=== PATIENT | female | born 1970 | race Hispanic/Latino ===

== ENCOUNTER 2018-06-30 13:46 | Emergency (ER) | payer OTHER ==
[~2018-06-30] VITALS: Ht 149.9 cm; Wt 47.6 kg
[2018-06-30] MEDS ORDERED: PANTOPRAZOLE 40 MG 10ML VIAL IV STA (15:35)
[2018-06-30] MEDS ORDERED: SODIUM CHLORIDE 0.9% 1000ML 1,000 ML IV STA (15:35)
[2018-06-30] MEDS ORDERED: ONDANSETRON HCL INJ 2 MG/ML VIAL IV STA (15:35)
[2018-06-30 16:31] LABS: BASOPHILS % 0.5 % (0.0-1.0); EOSINOPHILS % 0.7 % (0.0-6.0); HEMATOCRIT 30.6 % (34.2-44.1); HEMOGLOBIN 9.5 g/dL (12.0-16.0); LYMPHOCYTES % 25.6 % (18.0-39.1); MEAN CORPUSCULAR HEMOGLOBIN 24.3 pg (28-32); MEAN CORPUSCULAR VOLUME 78.3 fL (81-99); MONOCYTES # (AUTO) 0.5 (0.2-0.8); MONOCYTES % 11.1 % (4.4-11.3); NEUTROPHILS # (AUTO) 2.5 (2.1-6.9); NEUTROPHILS % 61.9 % (38.7-80.0); PLATELET COUNT 271 x10e3/uL (140-360); RED BLOOD COUNT 3.91 x10e6/uL (3.6-5.1); RED CELL DISTRIBUTION WIDTH 14.8 % (11.7-14.4)
[2018-06-30 16:43] LABS: ALANINE AMINOTRANSFERASE 14 IU/L (0-55); ALBUMIN/GLOBULIN RATIO 1.3 (0.8-2.0); ALKALINE PHOSPHATASE 50 IU/L (40-150); AMYLASE 55 U/L (25-125); ANION GAP 17.8 mmol/L (8-16); BLOOD UREA NITROGEN 8 mg/dL (7-26); BUN/CREATININE RATIO 13 (6-25); CALCIUM 9.2 mg/dL (8.4-10.2); CARBON DIOXIDE 20 mmol/L (22-29); CHLORIDE 102 mmol/L (98-107); CREATININE, SERUM 0.64 mg/dL (0.57-1.11); EST GLOMERULAR FILTRATION RATE > 60 ML/MIN (60-); GLUCOSE 75 mg/dL (74-118); LIPASE 56 U/L (8-78); POTASSIUM 3.8 mmol/L (3.5-5.1); SODIUM 136 mmol/L (136-145)
--- NOTE | 2018-06-30 17:30 | Diagnostic Imaging Report ---
History: Comparison studies: None Technique: Axial images were obtained from the skull base to the thoracic inlet. Coronal and sagittal images reconstructed from the axial data. Intravenous contrast: None Findings: Evaluation of the neck is limited due to the absence of intravenous contrast. In spite of this limitation, Upper aerodigestive tract: Mildly prominent oropharyngeal tonsils. No gross intratonsillar abscess. No peritonsillar inflammatory changes or peritonsillar abscess. Punctate tonsillith in the right oropharyngeal tonsil as sequela previous infection/inflammation. Airways otherwise patent. No other gross abnormalities. Lymph nodes: No enlarged lymph nodes. Vessels: Cannot evaluate. Glands (thyroid, parotid and submandibular): Normal in size and symmetric. No masses. Paranasal sinuses: Small retention cyst in the right maxillary sinus and and mild nonspecific mucosal thickening the left maxillary sinuses. Remaining sinuses are clear. Included orbits: No abnormalities. Temporal bones: No gross abnormalities. Skull base and facial bones: Intact. Cervical spine: Mild cervical kyphosis. Mildly degenerated C4-C5 and C6-C7 disc. Moderately degenerated C5-C6 disc. No significant canal stenosis. Uncovertebral facet arthrosis result in multilevel foraminal stenosis (mild left at C2-C3, moderate left at C3-C4, moderate left and mild right foraminal stenosis at C5-C6 and mild bilaterally at C6-C7).. IMPRESSION: Exam is limited in the absence of IV contrast. In spite of this limitation: 1. Mildly prominent oropharyngeal tonsils, possibly reactive related to tonsillitis. Findings could be correlated with direct visualization. 2. Patent airway without discrete abscess or peritonsillar inflammatory changes. 3. Degenerative changes in the cervical spine as described. Signed by: Dr. Rajat Miranda M.D. on 06/30/2018 5:27 PM
[2018-07-02] MEDS ORDERED: CARAFATE1 GM/10 ML PO (11:20)
[2018-07-02] MEDS ORDERED: SUMATRIPTAN SUC25 MG PO (11:20)
[2018-07-02] MEDS ORDERED: LORAZEPAM1 MG PO (11:20)
[2018-07-02] MEDS ORDERED: LANSOPRAZOLE30 MG PO (11:21)
[2018-07-02] MEDS ORDERED: ZOFRAN ODT4 MG PO (11:21)
[2018-07-02] MEDS ORDERED: AMOXICILLIN250 MG PO (11:21)
== END 2018-06-30 19:21 | disposition home or self-care (01) ==
LOC: ER 13:46
DX: R13.14 Dysphagia, pharyngoesophageal phase (principal); J03.00 Acute streptococcal tonsillitis, unspecified
CPT/HCPCS: 36415; 70490; 80053; 82150; 83690; 85025; 99284; J2405; J7030

== ENCOUNTER 2018-07-02 21:52 | Emergency (ER) | payer OTHER ==
[~2018-07-02] VITALS: Ht 149.9 cm; Wt 47.6 kg
[~2018-07-02 21:52] MED LIST changes: -FENTANYL CITRATE/PF 100MCG/2 ML INJ ONE; -LIDOCAINE HCL 2% LOCAL INJ 5 ML SDV VIAL INJ ONE; -MIDAZOLAM HCL 2 MG/2 ML VIAL ONE; -PROPOFOL IV EMULSION 10 MG/ML 50 ML VIAL ONE
[2018-07-02] MEDS ORDERED: KETOROLAC TROMETHAMINE 30 MG/ML VIAL IV STA (22:18)
[2018-07-02 22:41] LABS: BASOPHILS % 0.4 % (0.0-1.0); EOSINOPHILS # (AUTO) 0.1 (0.0-0.4); EOSINOPHILS % 1.6 % (0.0-6.0); HEMATOCRIT 31.6 % (34.2-44.1); HEMOGLOBIN 9.8 g/dL (12.0-16.0); LYMPHOCYTES # (AUTO) 1.3 (1.0-3.2); LYMPHOCYTES % 22.5 % (18.0-39.1); MEAN CORPUSCULAR HEMOGLOBIN 24.4 pg (28-32); MEAN CORPUSCULAR VOLUME 78.6 fL (81-99); MONOCYTES # (AUTO) 0.6 (0.2-0.8); MONOCYTES % 10.1 % (4.4-11.3); NEUTROPHILS # (AUTO) 3.7 (2.1-6.9); PLATELET COUNT 262 x10e3/uL (140-360); RED BLOOD COUNT 4.02 x10e6/uL (3.6-5.1); RED CELL DISTRIBUTION WIDTH 14.7 % (11.7-14.4)
[2018-07-02 22:52] LABS: INR 1.16; PROTHROMBIN TIME 13.9 seconds (11.9-14.5)
[2018-07-02 22:53] LABS: PARTIAL THROMBOPLASTIN TIME 33.1 seconds (23.8-35.5)
[2018-07-02 23:02] LABS: ALANINE AMINOTRANSFERASE 15 IU/L (0-55); ALBUMIN 4.2 g/dL (3.5-5.0); ALBUMIN/GLOBULIN RATIO 1.3 (0.8-2.0); ALKALINE PHOSPHATASE 53 IU/L (40-150); ANION GAP 20.4 mmol/L (8-16); BLOOD UREA NITROGEN 7 mg/dL (7-26); BUN/CREATININE RATIO 11 (6-25); CALCIUM 9.5 mg/dL (8.4-10.2); CARBON DIOXIDE 18 mmol/L (22-29); CHLORIDE 104 mmol/L (98-107); CREATINE KINASE 84 IU/L (29-168); CREATININE, SERUM 0.66 mg/dL (0.57-1.11); EST GLOMERULAR FILTRATION RATE > 60 ML/MIN (60-); GLUCOSE 70 mg/dL (74-118); POTASSIUM 3.4 mmol/L (3.5-5.1); SODIUM 139 mmol/L (136-145)
--- NOTE | 2018-07-02 23:23 | Diagnostic Imaging Report ---
EXAMINATION: CHEST 2 VIEWS INDICATION: Chest pain. COMPARISON: None FINDINGS: TUBES and LINES: None. LUNGS: Lungs are well inflated. Lungs are clear. There is no evidence of pneumonia or pulmonary edema. PLEURA: No pleural effusion or pneumothorax. HEART AND MEDIASTINUM: The cardiomediastinal silhouette is unremarkable. BONES AND SOFT TISSUES: No acute osseous lesion. Soft tissues are unremarkable. UPPER ABDOMEN: No free air under the diaphragm. IMPRESSION: No acute thoracic abnormality. Signed by: Dr. Juan Maravilla M.D. on 07/02/2018 11:20 PM
[2018-07-03 01:57] LABS: CREATINE KINASE 79 IU/L (29-168)
== END 2018-07-03 02:40 | disposition home or self-care (01) ==
LOC: ER 21:52
DX: R07.89 Other chest pain (principal); R09.1 Pleurisy; D64.9 Anemia, unspecified
CPT/HCPCS: 36415; 71046; 80053; 82550; 82553; 84484; 85025; 85379; 85610; 85730; 93005; 99283; J1885

== ENCOUNTER → 2018-07-02 | Day surgery (SDC) | payer OTHER ==
[~2018-07-02] MED LIST: AMOXICILLIN250 MG PO; CARAFATE1 GM/10 ML PO; FENTANYL CITRATE/PF 100MCG/2 ML INJ ONE; LANSOPRAZOLE30 MG PO; LIDOCAINE HCL 2% LOCAL INJ 5 ML SDV VIAL INJ ONE; LORAZEPAM1 MG PO; MIDAZOLAM HCL 2 MG/2 ML VIAL ONE; PROPOFOL IV EMULSION 10 MG/ML 50 ML VIAL ONE; SUMATRIPTAN SUC25 MG PO; ZOFRAN ODT4 MG PO
--- NOTE | 2018-07-02 13:55 | Operative Report ---
DATE OF PROCEDURE: July 02, 2018 REFERRING PHYSICIAN: Dr. Saúl Miramontes and Dr. Sean Black. PROCEDURE PERFORMED: Esophagogastroduodenoscopy with esophageal dilatation. INDICATIONS FOR ESOPHAGOGASTRODUODENOSCOPY: Dysphagia. MEDICATION: Patient was done under MAC. Please see anesthesiologist's note. PROCEDURE: With the patient in left lateral decubitus position, flexible fiberoptic Olympus gastroscope was introduced into the esophagus under direct visualization without any difficulty. There was some patchy erythema noted in distal esophagus. There was a mild stricture noted at the GE junction that was dilated to size 52-Mongol[place] Brown. The scope was then advanced with ease into the stomach, mucosa overlying the antrum and the body revealed some patchy erythema and mild to moderate edema and biopsies were obtained and sent to stain for H. pylori. The pylorus was of normal contour and shape, was intubated with ease, and the scope was advanced all the way to the 2nd portion of the duodenum. The scope was withdrawn slowly. Mucosa overlying the proximal 2nd portion and the duodenal bulb appeared to be within normal limits. The scope was then withdrawn back into the stomach and retroflexed. Mucosa overlying the fundus and the cardia appeared to be within normal limits. The scope was then straightened out and was subsequently withdrawn. Patient tolerated procedure well. IMPRESSIONS 1. Distal esophagitis. 2. Esophageal stricture, dilated to a size 52-Mong[place]ian Brown. 3. Gastritis, biopsied. Biopsies sent to stain for Helicobacter pylori. PLAN: Follow up histology. Initiate Protonix 40 mg 1 p.o. q.a.m. and a.c. Job#: [id number] TA cc:SEAN BLACK MD cc:SAÚL MIRAMONTES MD
== END | disposition home or self-care (01) ==
LOC: OR 11:04
PROVIDERS: ATTEND Internal Medicine Gastroenterology
DX: K29.50 Unspecified chronic gastritis without bleeding (principal); K22.2 Esophageal obstruction; K20.9 Esophagitis, unspecified; K21.9 Gastro-esophageal reflux disease without esophagitis; I10 Essential (primary) hypertension; F41.9 Anxiety disorder, unspecified; F32.9 Major depressive disorder, single episode, unspecified; Z88.0 Allergy status to penicillin
CPT/HCPCS: 43239; 43450; 81025; 93005; J2001; J2250

== ENCOUNTER 2018-08-01 18:46 | Emergency (ER) | payer OTHER ==
[~2018-08-01] VITALS: Ht 149.9 cm; Wt 45.4 kg
[~2018-08-01 18:46] MED LIST changes: +BACTRIM DS TAB1 EACH PO; +FLOMAX0.4 MG PO; +INTEGRA PLUS C1 EACH; +INTEGRA PLUS C1 EACH PO; +PANTOPRAZOLE SO40 MG PO; +ULTRAM50 MG PO
== END 2018-08-01 19:58 | disposition home or self-care (01) ==
LOC: FSED 18:46
DX: R13.13 Dysphagia, pharyngeal phase (principal); F41.9 Anxiety disorder, unspecified; K21.9 Gastro-esophageal reflux disease without esophagitis
CPT/HCPCS: 99282

== ENCOUNTER 2018-08-02 17:06 | Emergency (ER) | payer OTHER ==
[~2018-08-02] VITALS: Ht 149.9 cm; Wt 45.4 kg
[2018-08-02 18:09] LABS: BASOPHILS % 0.4 % (0.0-1.0); EOSINOPHILS # (AUTO) 0.1 (0.0-0.4); EOSINOPHILS % 1.6 % (0.0-6.0); HEMATOCRIT 33.3 % (34.2-44.1); HEMOGLOBIN 10.2 g/dL (12.0-16.0); LYMPHOCYTES # (AUTO) 1.1 (1.0-3.2); MEAN CORPUSCULAR HEMOGLOBIN 25.1 pg (28-32); MEAN CORPUSCULAR HGB CONC 30.6 g/dL (31-35); MONOCYTES # (AUTO) 0.4 (0.2-0.8); NEUTROPHILS # (AUTO) 3.2 (2.1-6.9); NEUTROPHILS % 66.6 % (38.7-80.0); PLATELET COUNT 331 x10e3/uL (140-360); RED BLOOD COUNT 4.06 x10e6/uL (3.6-5.1); RED CELL DISTRIBUTION WIDTH 18.6 % (11.7-14.4)
[2018-08-02 18:14] LABS: CLARITY,URINE SL CLOUDY (CLEAR); COLOR,URINE YELLOW (YELLOW)
[2018-08-02 18:15] LABS: BILIRUBIN,URINE NEGATIVE (NEGATIVE); KETONES,URINE 2+ (NEGATIVE); LEUKOCYTE ESTERASE ,URINE TRACE (NEGATIVE); NITRITE,URINE NEGATIVE (NEGATIVE); PROTEIN,URINE DIPSTICK 1+ (NEGATIVE); URINE UROBILINOGEN 0.2 mg/dL (0.2 - 1)
[2018-08-02 18:25] LABS: BACTERIA,URINE MODERATE /HPF; EPITHELIAL CELLS,URINE MANY /LPF; RBC,URINE >50 /HPF (0-5)
--- NOTE | 2018-08-02 18:29 | Diagnostic Imaging Report ---
Exam: Head CT without contrast History: Weakness, dizziness Comparison studies: None Technique: Axial images were obtained from the skull base to the vertex. Coronal and sagittal images reconstructed from the axial data. Dose modulation, iterative reconstruction, and/or weight based adjustment of the mA/kV was utilized to reduce the radiation dose to as low as reasonably achievable. Radiation dose: Total DLP: 921 mGy*cm. Estimated effective dose: DLP x 0.015 Intravenous contrast: None Findings: Scalp: No abnormalities. Bones: No fractures, blastic or lytic lesions. Brain sulci: Appropriate for age. Ventricles: Normal in size and configuration. No hydrocephalus. Extra-axial spaces: No masses, no fluid collection. Parenchyma: No abnormal densities. No masses, hemorrhage, acute or chronic vascular insults. Sellar/suprasellar region: No abnormalities. Craniocervical junction: Patent foramen magnum. No Chiari one malformation. Incidental findings: Subtle vascular calcifications in the carotid siphons and at the dural insertions of the vertebral arteries. IMPRESSION: No acute abnormalities. Signed by: Dr. Rajat Miranda M.D. on 08/02/2018 6:25 PM
[2018-08-02 18:32] LABS: ALANINE AMINOTRANSFERASE 21 IU/L (0-55); ALBUMIN 4.3 g/dL (3.5-5.0); ALBUMIN/GLOBULIN RATIO 1.3 (0.8-2.0); ALKALINE PHOSPHATASE 57 IU/L (40-150); ANION GAP 16.4 mmol/L (8-16); BLOOD UREA NITROGEN 12 mg/dL (7-26); BUN/CREATININE RATIO 19 (6-25); CALCIUM 9.8 mg/dL (8.4-10.2); CARBON DIOXIDE 23 mmol/L (22-29); CHLORIDE 100 mmol/L (98-107); CREATINE KINASE 46 IU/L (29-168); CREATININE, SERUM 0.63 mg/dL (0.57-1.11); EST GLOMERULAR FILTRATION RATE > 60 ML/MIN (60-); GLUCOSE 81 mg/dL (74-118); POTASSIUM 3.4 mmol/L (3.5-5.1); SODIUM 136 mmol/L (136-145)
== END 2018-08-02 19:19 | disposition home or self-care (01) ==
LOC: ER 17:06
DX: R53.1 Weakness (principal); Z87.891 Personal history of nicotine dependence
CPT/HCPCS: 36415; 70450; 80053; 81001; 82550; 82553; 84484; 85025; 93005; 99284

== ENCOUNTER → 2018-08-13 | Day surgery (SDC) | payer OTHER ==
[~2018-08-13] MED LIST changes: +AMOXICILLIN500 MG PO; +CEFPROZIL250 MG PO; +DEXAMETHASONE SOD PHOS INJ 4 MG/ML VIAL ONE; +FENTANYL CITRATE/PF 100MCG/2 ML INJ ONE; +GENTAMICIN 120MG/NS 100ML 100 ML ONE; +IOPAMIDOL 610MG/1ML 300 MG/ML VIAL IV ONE; +LIDOCAINE HCL 2% LOCAL INJ 5 ML SDV VIAL INJ ONE; +MIDAZOLAM HCL 2 MG/2 ML VIAL ONE; +ONDANSETRON HCL INJ 2 MG/ML VIAL ONE; +PREDNISONE20 MG PO; +PROPOFOL IV EMULSION 10 MG/ML 20 ML VIAL ONE; +SEVOFLURANE INHAL SOLN 250 ML PEN BTL ONE
--- NOTE | 2018-08-13 07:55 | Operative Report ---
DATE OF PROCEDURE: August 13, 2018 PREOPERATIVE DIAGNOSES 1. Indwelling left ureteral stent. 2. Left ureteral calculus. 3. Left ureteral stricture. POSTOPERATIVE DIAGNOSES 1. Indwelling left ureteral stent. 2. Left ureteral calculus. 3. Left ureteral stricture. PROCEDURES 1. Cystourethroscopy and complicated removal of left indwelling stent (entirely separate procedure for left indwelling ureteral stent). 2. Left-sided ureteroscopy (entirely separate procedure for left ureteral stricture). 3. Supervision of fluoroscopy for ureteral stricture. 4. Supervision of fluoroscopy with stent removal. 5. Interpretation of retrograde ureteropyelography. ANESTHESIA: General. ESTIMATED BLOOD LOSS: Minimal. COMPLICATIONS: None. INDICATIONS: Mrs. Melvin is a very pleasant 47-year-old female with a history of ureteral stones, strictures, hydronephrosis, and stent placement. She and I had a long discussion about alternatives, risks, and benefits including doing nothing, cystoscopy with IVP, retrograde pyelogram, renal ultrasound, stent removal, ureteroscopy, percutaneous surgery. She voiced understanding of the options, alternatives, risks, and benefits and she elected to proceed. PROCEDURE IN DETAIL: After informed consent was obtained, the patient was taken to the operative suite and placed supine and underwent general anesthesia by the anesthesia service. She was then placed in the dorsal lithotomy position and sterilely prepped and draped in the standard fashion for cystoscopy. A 22.5-Wolof cystoscope was inserted per urethra, and normal appearing bladder. Panendoscopy revealed no tumors and no stones. Both ureteral orifices were within normal anatomic location and position with a left stent extruding. It was grasped and it was removed. Attempts were made to insert a guidewire. This failed. The guidewire was inserted along the stent. It was coiled in the renal pelvis. The ureteroscope was driven to the level of the renal pelvis. The previously seen stone had passed. The stricture was dilated, patent and easily passed through the ureteroscope. Retrograde pyelograms were performed through the ureteroscope revealing a dilated collecting system, but no evidence of other stones. At this time, the ureteroscope and the wire were removed. The bladder was drained. The patient was awakened from anesthesia and transported to the recovery room in excellent condition. SUPERVISION OF FLUOROSCOPY, INTERPRETATION OF RETROGRADE URETERAL PYELOGRAPHY: I was present throughout the entire procedure and I supervised the use of fluoroscopy as there was no radiologist present. Attention was turned toward the left where the ureter was catheterized with a ureteroscope. Retrograde pyelogram was performed revealing dilated collecting system and no evidence of stones. Job#: [id number] [facility]
[2018-08-13 08:25] VITALS: BP 134/88
== END | disposition home or self-care (01) ==
LOC: OR 05:10
PROVIDERS: ATTEND Urology
DX: N13.1 Hydronephrosis with ureteral stricture, not elsewhere classified (principal); N39.0 Urinary tract infection, site not specified; N20.1 Calculus of ureter; Z96.0 Presence of urogenital implants; F41.9 Anxiety disorder, unspecified; K21.9 Gastro-esophageal reflux disease without esophagitis; D64.9 Anemia, unspecified; Z88.0 Allergy status to penicillin
CPT/HCPCS: 52315; 74420; 81025; J1100; J1580; J2001; J2250; J2405; Q9967

== ENCOUNTER 2018-09-20 15:19 | Emergency (ER) | payer OTHER ==
[~2018-09-20] VITALS: Ht 149.9 cm; Wt 43.1 kg
[~2018-09-20 15:19] MED LIST changes: -DEXAMETHASONE SOD PHOS INJ 4 MG/ML VIAL ONE; -FENTANYL CITRATE/PF 100MCG/2 ML INJ ONE; -GENTAMICIN 120MG/NS 100ML 100 ML ONE; -IOPAMIDOL 610MG/1ML 300 MG/ML VIAL IV ONE; -LIDOCAINE HCL 2% LOCAL INJ 5 ML SDV VIAL INJ ONE; -MIDAZOLAM HCL 2 MG/2 ML VIAL ONE; -ONDANSETRON HCL INJ 2 MG/ML VIAL ONE; -PROPOFOL IV EMULSION 10 MG/ML 20 ML VIAL ONE; -SEVOFLURANE INHAL SOLN 250 ML PEN BTL ONE
[2018-09-20 16:03] VITALS: BP 120/70
== END 2018-09-20 16:23 | disposition home or self-care (01) ==
LOC: FSED 15:19
DX: K21.0 Gastro-esophageal reflux disease with esophagitis (principal); K29.70 Gastritis, unspecified, without bleeding; J02.9 Acute pharyngitis, unspecified; R10.13 Epigastric pain; E78.5 Hyperlipidemia, unspecified; F41.9 Anxiety disorder, unspecified; Z88.0 Allergy status to penicillin
CPT/HCPCS: 99282

== ENCOUNTER 2018-10-08 14:30 | Emergency (ER) | payer OTHER ==
[~2018-10-08] VITALS: Ht 149.9 cm; Wt 43.1 kg
--- OUTSIDE RECORDS SUMMARY | 2018-10-08 14:33 | XMS REPORT | Continuity of Care Document ---
Author Author [facility] Interface Address Unknown Phone Unavailable Problems Problem Status Onset Date Classification Date Reported Comments Source PYELONEPHRITIS, KIDNEY STONE, VOMITING Active 01/31/2012 [facility] HEADACHE Active 01/31/2012 [facility] Fever Active Problem 02/03/2012 [facility] Pain Active Problem 02/03/2012 [facility] PYELONEPHRITIS NOS Active [facility] Medications Medication Details Route Status Patient Instructions Ordering Provider Order Date Source ondansetron 4 mg, 2 mL, Route: IVP, Drug form: INJ, ONCE, PRN Nausea & Vomiting, Start date: 02/01/12 9:30:00 IVP No Longer Active [facility] 02/01/2012 [facility] fentanyl 25 microgram, 0.5 mL, Route: IVP, Drug form: INJ, Q5Min, PRN Pain Score 4-6, Start date: 02/01/12 9:30:00, Duration: 4 doses or times, Stop date: Limited # of times IVP No Longer Active [facility] 02/01/2012 [facility] acetaminophen-hydrocodone 325 mg-5 mg oral tablet 2 tab, Route: PO, Drug Form: TAB, Q4H, PRN Pain Score 4-6, Start date: 02/01/12 9:30:00, Duration: 30 day, Stop date: 03/02/12 9:29:00 PO No Longer Active [facility] 02/01/2012 [facility] naloxone 0.04 mg, 0.1 mL, Route: IVP, Drug form: INJ, Q2MIN, PRN Narcotic Reversal, Start date: 02/01/12 9:30:00, Duration: 8 doses or times, Stop date: Limited # of times IVP No Longer Active [facility] 02/01/2012 [facility] flumazenil 0.2 mg, 2 mL, Route: IVP, Drug form: INJ, PRN, PRN Benzodiazepine Reversal, Initial dose, Start date: 02/01/12 9:30:00, Duration: 30 day, Stop date: 03/02/12 9:29:00 IVP No Longer Active [facility] 02/01/2012 [facility] hydromorphone 0.5 mg, 0.5 mL, Route: IVP, Drug form: SOLN, Q5Min, PRN Pain Score 4-6, Start date: 02/01/12 9:30:00, Duration: 5 doses or times, Stop date: Limited # of times IVP No Longer Active [facility] 02/01/2012 [facility] meperidine 12.5 mg, 0.25 mL, Route: IVP, Drug form: INJ, Q30Min, PRN Other -See Comment, For shivering, Start date: 02/01/12 9:30:00, Duration: 2 doses or times, Stop date: Limited # of times IVP No Longer Active [facility] 02/01/2012 [facility] morphine Sulfate 2 mg, 1 mL, Route: IVP, Drug form: INJ, Q5Min, PRN Pain Score 4-6, Start date: 02/01/12 9:30:00, Duration: 8 doses or times, Stop date: Limited # of times IVP No Longer Active [facility] 02/01/2012 [facility] Lactated Ringers IV 1,000 mL 1,000 mL, Rate: 25 ml/hr, Infuse over: 40 hr, Route: IV, Dosing Weight 50.9 kg, Total Volume: 1,000, Start date: 02/01/12 7:45:00, Duration: 30 day, Stop date: 03/02/12 7:44:00 IV No Longer Active [facility] 02/01/2012 [facility] potassium chloride 40 mEq, Route: PO, ONCE, Start date: 01/31/12 22:28:00, Stop date: 01/31/12 22:28:00 PO No Longer Active [facility] 02/01/2012 [facility] Flomax 0.4 mg, 1 cap, Route: PO, Drug form: CAP, ONCE, Start date: 01/31/12 22:00:00, Stop date: 01/31/12 22:00:00 PO No Longer Active [facility] 02/01/2012 [facility] D5W 1/2NS + KCL 20mEq/L 1000ml (Premix) 1,000 mL 1,000 mL, Rate: 175 ml/hr, Infuse over: 5.7 hr, Route: IV, Dosing Weight 50.909 kg, Total Volume: 1,000, Start date: 01/31/12 21:28:00, Duration: 30 day, Stop date: 03/01/12 21:27:00 IV No Longer Active [facility] 02/01/2012 [facility] Rocephin 1 g/ NS (NaCl 0.9%) 50 mL IV solution 1 gm, Route: IVPB, [id number], Start date: 01/31/12 21:00:00, Duration: 30 day, Stop date: 02/29/12 21:00:00 IVPB No Longer Active [facility] 02/01/2012 [facility] morphine Sulfate 4 mg, 2 mL, Route: IVP, Drug form: INJ, Q3H, PRN Pain Score 7-10, Start date: 01/31/12 20:57:00, Duration: 30 day, Stop date: 03/01/12 20:56:00 IVP No Longer Active [facility] 02/01/2012 [facility] ondansetron 4 mg, 2 mL, Route: IVP, Drug form: INJ, Q6H, PRN Nausea & Vomiting, Start date: 01/31/12 20:57:00, Duration: 30 day, Stop date: 03/01/12 20:56:00 IVP No Longer Active [facility] 02/01/2012 [facility] Saline Flush 0.9% 5 ml, Route: IVP, Drug Form: INJ, PRN, PRN Line Flush, Start date: 01/31/12 20:57:00, Duration: 30 day, Stop date: 03/01/12 20:56:00 IVP No Longer Active [facility] 02/01/2012 [facility] Sodium Chloride 0.9% IV 1,000 mL 1,000 mL, Rate: 125 ml/hr, Infuse over: 8 hr, Route: IV, Dosing Weight 50.909 kg, Total Volume: 1,000, Start date: 01/31/12 20:57:00, Duration: 30 day, Stop date: 03/01/12 20:56:00 IV No Longer Active [facility] 02/01/2012 [facility] ferrous sulfate 325 mg oral enteric coated tablet 325 mg, 1 tab, PO, TID, Substitution Allowed PO Active 02/01/2012 [facility] Dilaudid 0.5 mg, Route: IV, ONCE, PRN Pain, Start date: 01/31/12 19:05:00, Stop date: 03/01/12 19:04:00 IV No Longer Active [facility] 02/01/2012 [facility] gentamicin 100 mg, 2.5 mL, Route: IVPB, Drug form: INJ, [id number], pharmacy to assist with dosing. First dose now, Start date: 01/31/12 19:00:00, Duration: 30 day, Stop date: 03/01/12 7:00:00 IVPB No Longer Active [facility] 02/01/2012 [facility] Rocephin 1 g/ NS (NaCl 0.9%) 50 mL IV solution 1 gm, Route: IVPB, Drug form: PDR/INJ, ONCE, Priority: STAT, Start date: 01/31/12 18:23:00, Stop date: 01/31/12 18:23:00 IVPB No Longer Active [facility] 01/31/2012 [facility] ondansetron 4 mg oral tablet, disintegrating 4 mg, 1 tab, Route: PO, Drug form: TABDIS, ONCE, Start date: 01/31/12 18:18:00, Stop date: 01/31/12 18:18:00 PO No Longer Active [facility] 01/31/2012 [facility] hydromorphone 0.5 mg, Route: IVP, ONCE, Priority: STAT, Start date: 01/31/12 18:17:00, Stop date: 01/31/12 18:17:00 IVP No Longer Active [facility] 01/31/2012 [facility] potassium chloride 20 mEq oral tablet, extended release 40 mEq, 2 tab, Route: PO, Drug form: ERTAB, ONCE, Priority: STAT, Start date: 01/31/12 17:23:00, Stop date: 01/31/12 17:23:00 PO No Longer Active [facility] 01/31/2012 [facility] morphine Sulfate 4 mg, 2 mL, Route: IVP, Drug form: INJ, ONCE, Start date: 01/31/12 15:16:00, Stop date: 01/31/12 15:16:00 IVP No Longer Active [facility] 01/31/2012 [facility] Zofran 4 mg, 2 mL, Route: IVP, Drug form: INJ, ONCE, Start date: 01/31/12 15:16:00, Stop date: 01/31/12 15:16:00 IVP No Longer Active [facility] 01/31/2012 [facility] Sodium Chloride 0.9% (Bolus) IV 1,000 mL 1,000 mL, Rate: 1,000 ml/hr, Infuse over: 1 hr, Route: IV, Dosing Weight 50.9 kg, Total Volume: 1,000, Priority: STAT, Start date: 01/31/12 15:16:00, Duration: 1 doses or times, Stop date: 01/31/12 16:15:00, Bolus DoseBolus Dose IV No Longer Active [facility] 01/31/2012 [facility] Allergies, Adverse Reactions, Alerts Substance Category Reaction Severity Reaction type Status Date Reported Comments Source penicillins drug allergy Allergy Active [facility] Immunizations Immunization Date Given Site Status Last Updated Comments Source Results Order Name Results Value Reference Range Date Interpretation Comments Source Microbiology Culture: Blood 02/01/2012 [facility] CHEMISTRY AGAP 16.3 meq/L 10.0 - 20.0 02/01/2012 Normal [facility] CHEMISTRY Calcium Lvl 7.2 mg/dL 8.5 - 10.5 02/01/2012 LOW [facility] CHEMISTRY CO2 22 meq/L 24 - 32 02/01/2012 LOW [facility] CHEMISTRY Glucose Lvl 114 mg/dL 02/01/2012 NA 2Interpretive Data: Reference Ranges : 0 - 7 days : 41 - 90 mg/dL7 days - 150 yrs : 70 - 99 mg/dL (fasting), based on the clinical recommendations of the [place] [employer]. [facility] CHEMISTRY Potassium Lvl 3.3 meq/L 3.5 - 5.1 02/01/2012 LOW [facility] CHEMISTRY Creatinine Lvl 0.8 mg/dL 0.5 - 1.4 02/01/2012 Normal [facility] CHEMISTRY Sodium Lvl 142 meq/L 135 - 145 02/01/2012 Normal [facility] CHEMISTRY Chloride Lvl 107 meq/L 95 - 109 02/01/2012 Normal [facility] CHEMISTRY BUN 12 mg/dL 7 - 22 02/01/2012 Normal [facility] HEMATOLOGY Anisocyte 1+ *ABN* (02/01/2012 00:37:00) None Seen 02/01/2012 ABN [facility] HEMATOLOGY Basophils 0.0 % 0.0 - 1.0 02/01/2012 Normal [facility] HEMATOLOGY Segs-Bands # 6.4 K/CMM 1.5 - 8.1 02/01/2012 Normal [facility] HEMATOLOGY Eosinophils # 0.0 K/CMM 0.0 - 0.5 02/01/2012 Normal [facility] HEMATOLOGY Lymphocytes # 0.5 K/CMM 1.0 - 5.5 02/01/2012 LOW [facility] HEMATOLOGY Basophils # 0.0 K/CMM 0.0 - 0.2 02/01/2012 Normal [facility] HEMATOLOGY Monocytes # 0.5 K/CMM 0.0 - 0.8 02/01/2012 Normal [facility] HEMATOLOGY Monocytes 6.7 % 2.0 - 12.0 02/01/2012 Normal [facility] HEMATOLOGY Segs 87.1 % 45.0 - 75.0 02/01/2012 [facility] HEMATOLOGY Lymphocytes 6.2 % 20.0 - 40.0 02/01/2012 LOW [facility] HEMATOLOGY Eosinophils 0.0 % 0.0 - 4.0 02/01/2012 Normal [facility] HEMATOLOGY Platelet 119 K/CMM 133 - 450 02/01/[address] [facility] HEMATOLOGY MPV 9.3 fL 7.4 - 10.4 02/01/2012 Normal [facility] HEMATOLOGY RDW 20.9 % 11.5 - 14.5 02/01/2012 [facility] HEMATOLOGY MCHC 33.0 g/dL 32.0 - 36.0 02/01/2012 Normal [facility] HEMATOLOGY MCH 27.6 pg 27.0 - 31.0 02/01/2012 Normal [facility] HEMATOLOGY MCV 83.6 fL 81.0 - 99.0 02/01/2012 Normal [facility] HEMATOLOGY Hct 27.8 % 36.0 - 48.0 02/01/[address] [facility] HEMATOLOGY RBC 3.33 M/CMM 4.20 - 5.40 02/01/[address] [facility] HEMATOLOGY WBC 7.4 K/CMM 3.7 - 10.4 02/01/2012 Normal [facility] HEMATOLOGY Hgb 9.2 g/dL 12.0 - 16.0 02/01/[address] [facility] Microbiology Culture: Blood 02/01/2012 [facility] URINALYSIS UA Bacteria Moderate /HPF (01/31/2012 15:28:00) None Seen 01/31/2012 Normal [facility] URINALYSIS UA RBC 3-5 /HPF *ABN* (01/31/2012 15:28:00) 0 - 2 01/31/2012 ABN [facility] URINALYSIS UA WBC 6-10 /HPF *ABN* (01/31/2012 15:28:00) None Seen 01/31/2012 ABN [facility] URINALYSIS UA Color Yellow *NA* (01/31/2012 15:28:00) Yellow 01/31/2012 NA [facility] URINALYSIS UA Glucose Negative (01/31/2012 15:28:00) Negative 01/31/2012 Normal [facility] URINALYSIS UA Protein 100 mg/dL *ABN* (01/31/2012 15:28:00) Negative 01/31/2012 ABN [facility] URINALYSIS UA Amorph Myranda Occasional /HPF *ABN* (01/31/2012 15:28:00) None Seen 01/31/2012 ABN [facility] URINALYSIS UA Leuk Est Negative (01/31/2012 15:28:00) Negative 01/31/2012 Normal [facility] URINALYSIS UA Sq Epi Moderate /LPF *ABN* (01/31/2012 15:28:00) Few 01/31/2012 ABN [facility] URINALYSIS Micro? Performed (01/31/2012 15:28:00) 01/31/2012 Normal [facility] URINALYSIS UA Blood Small *ABN* (01/31/2012 15:28:00) Negative 01/31/2012 ABN [facility] URINALYSIS UA Bili Negative (01/31/2012 15:28:00) Negative 01/31/2012 Normal [facility] URINALYSIS UA Ketones >=80 mg/dL *ABN* (01/31/2012 15:28:00) Negative 01/31/2012 ABN [facility] URINALYSIS UA Nitrite Negative (01/31/2012 15:28:00) Negative 01/31/2012 Normal [facility] URINALYSIS UA Urobilinogen 4.0 EU/dL 0.1 - 1.0 01/31/2012 [place] [facility] URINALYSIS UA pH 6.0 5.0 - 8.0 01/31/2012 Normal [facility] URINALYSIS UA Spec Grav 1.025 <=1.030 01/31/2012 Normal [facility] URINALYSIS UA Turbidity Slight Cloudy (01/31/2012 15:28:00) Clear 01/31/2012 Normal [facility] Microbiology Culture: Urine 01/31/2012 [facility] CHEMISTRY Calcium Lvl 8.3 mg/dL 8.5 - 10.5 01/31/2012 LOW [facility] CHEMISTRY AGAP 15.0 meq/L 10.0 - 20.0 01/31/2012 Normal [facility] CHEMISTRY Sodium Lvl 141 meq/L 135 - 145 01/31/2012 Normal [facility] CHEMISTRY CO2 24 meq/L 24 - 32 01/31/2012 Normal [facility] CHEMISTRY Potassium Lvl 3.0 meq/L 3.5 - 5.1 01/31/2012 CRIT 1Result Comment: Critical Result(s) called to charli at 01/31/2012 17:16 bytb. Read back OK. [facility] CHEMISTRY Chloride Lvl 105 meq/L 95 - 109 01/31/2012 Normal [facility] CHEMISTRY Creatinine Lvl 0.7 mg/dL 0.5 - 1.4 01/31/2012 Normal [facility] CHEMISTRY Glucose Lvl 104 mg/dL 01/31/2012 NA 3Interpretive Data: Reference Ranges : 0 - 7 days : 41 - 90 mg/dL7 days - 150 yrs : 70 - 99 mg/dL (fasting), based on the clinical recommendations of the [place] [employer]. [facility] CHEMISTRY BUN 13 mg/dL 7 - 22 01/31/2012 Normal [facility] HEMATOLOGY Hgb 10.5 g/dL 12.0 - 16.0 01/31/2012 LOW [facility] HEMATOLOGY Hct 31.9 % 36.0 - 48.0 01/31/2012 LOW [facility] HEMATOLOGY MCV 82.9 fL 81.0 - 99.0 01/31/2012 Normal [facility] HEMATOLOGY Platelet 141 K/CMM 133 - 450 01/31/2012 Normal [facility] HEMATOLOGY RDW 20.5 % 11.5 - 14.5 01/31/2012 [place] [facility] HEMATOLOGY MCHC 32.8 g/dL 32.0 - 36.0 01/31/2012 Normal [facility] HEMATOLOGY MCH 27.2 pg 27.0 - 31.0 01/31/2012 Normal [facility] HEMATOLOGY MPV 8.6 fL 7.4 - 10.4 01/31/2012 Normal [facility] HEMATOLOGY WBC 10.0 K/CMM 3.7 - 10.4 01/31/2012 Normal [facility] HEMATOLOGY RBC 3.85 M/CMM 4.20 - 5.40 01/31/2012 LOW [facility] HEMATOLOGY Basophils # 0.0 K/CMM 0.0 - 0.2 01/31/2012 Normal [facility] HEMATOLOGY Lymphocytes # 0.3 K/CMM 1.0 - 5.5 01/31/2012 LOW [facility] HEMATOLOGY Eosinophils # 0.0 K/CMM 0.0 - 0.5 01/31/2012 Normal [facility] HEMATOLOGY Monocytes # 0.5 K/CMM 0.0 - 0.8 01/31/2012 Normal [facility] HEMATOLOGY Anisocyte 1+ *ABN* (01/31/2012 15:25:00) None Seen 01/31/2012 ABN [facility] HEMATOLOGY Eosinophils 0.0 % 0.0 - 4.0 01/31/2012 Normal [facility] HEMATOLOGY Segs-Bands # 9.2 K/CMM 1.5 - 8.1 01/31/2012 HI [facility] HEMATOLOGY Monocytes 4.7 % 2.0 - 12.0 01/31/2012 Normal [facility] HEMATOLOGY Lymphocytes 2.6 % 20.0 - 40.0 01/31/2012 LOW [facility] HEMATOLOGY Segs 92.7 % 45.0 - 75.0 01/31/2012 HI [facility] HEMATOLOGY Basophils 0.0 % 0.0 - 1.0 01/31/2012 Normal [facility] CHEMISTRY S Preg Negative *NA* (01/31/2012 15:24:00) Negative 01/31/2012 NA [facility] Vital Signs Vital Sign Value Date Comments Source Temperature Oral (F) 98.1 F 02/01/2012 [facility] Heart Rate 66 02/01/2012 [facility] Respitory Rate 18 02/01/2012 [facility] Systolic (mm Hg) 116 02/01/2012 [facility] Diastolic (mm Hg) 79 02/01/2012 [facility] Diastolic (mm Hg) 79 02/01/2012 [facility] Systolic (mm Hg) 117 02/01/2012 [facility] Respitory Rate 18 02/01/2012 [facility] Temperature Oral (F) 97.6 F 02/01/2012 [facility] Heart Rate 70 02/01/2012 [facility] Diastolic (mm Hg) 77 02/01/2012 [facility] Systolic (mm Hg) 113 02/01/2012 [facility] Respitory Rate 18 02/01/2012 [facility] Heart Rate 80 02/01/2012 [facility] Temperature Oral (F) 97.6 F 02/01/2012 [facility] Weight 50.909 02/01/2012 [facility] Height 149.86 cm 02/01/2012 [facility] Weight 50.909 01/31/2012 [facility] Height 152.40 cm 01/31/2012 [facility] Encounters Location Location Details Encounter Type Encounter Number Reason For Visit Attending Provider ADM Date DC Date Status Source [facility] Inpatient [id number] [facility] 01/31/2012 02/01/2012 Active [facility] Procedures Procedure Code Date Perfomer Comments Source
[2018-10-08 15:29] LABS: BASOPHILS % 0.4 % (0.0-1.0); EOSINOPHILS # (AUTO) 0.1 (0.0-0.4); EOSINOPHILS % 2.2 % (0.0-6.0); HEMATOCRIT 36.6 % (34.2-44.1); HEMOGLOBIN 11.9 g/dL (12.0-16.0); LYMPHOCYTES # (AUTO) 1.3 (1.0-3.2); LYMPHOCYTES % 25.4 % (18.0-39.1); MEAN CORPUSCULAR HEMOGLOBIN 29.3 pg (28-32); MEAN CORPUSCULAR HGB CONC 32.5 g/dL (31-35); MEAN CORPUSCULAR VOLUME 90.1 fL (81-99); MONOCYTES # (AUTO) 0.5 (0.2-0.8); MONOCYTES % 9.1 % (4.4-11.3); NEUTROPHILS # (AUTO) 3.1 (2.1-6.9); NEUTROPHILS % 62.5 % (38.7-80.0); PLATELET COUNT 234 x10e3/uL (140-360); RED BLOOD COUNT 4.06 x10e6/uL (3.6-5.1); RED CELL DISTRIBUTION WIDTH 17.9 % (11.7-14.4)
[2018-10-08] MEDS ORDERED: ASPIRIN 81 MG CHEW TAB PO ONE (15:30)
[2018-10-08 15:32] LABS: INR 0.93; PROTHROMBIN TIME 13.3 seconds (11.9-14.5)
[2018-10-08 15:33] LABS: PARTIAL THROMBOPLASTIN TIME 33.1 seconds (23.8-35.5)
[2018-10-08 15:43] LABS: ALANINE AMINOTRANSFERASE 12 IU/L (0-55); ALBUMIN 4.2 g/dL (3.5-5.0); ALBUMIN/GLOBULIN RATIO 1.2 (0.8-2.0); ALKALINE PHOSPHATASE 44 IU/L (40-150); ANION GAP 14.2 mmol/L (8-16); BLOOD UREA NITROGEN 16 mg/dL (7-26); BUN/CREATININE RATIO 23 (6-25); CALCIUM 9.2 mg/dL (8.4-10.2); CARBON DIOXIDE 24 mmol/L (22-29); CHLORIDE 108 mmol/L (98-107); CREATINE KINASE 100 IU/L (29-168); CREATININE, SERUM 0.69 mg/dL (0.57-1.11); EST GLOMERULAR FILTRATION RATE > 60 ML/MIN (60-); GLUCOSE 87 mg/dL (74-118); POTASSIUM 3.2 mmol/L (3.5-5.1); SODIUM 143 mmol/L (136-145)
[2018-10-08] MEDS ORDERED: SIMETHICONE 40 MG/0.6 ML BTL PO ONE (15:45)
--- NOTE | 2018-10-08 16:06 | Diagnostic Imaging Report ---
EXAMINATION: CHEST SINGLE (PORTABLE) INDICATION: Chest pain COMPARISON: None FINDINGS: TUBES and LINES: None. LUNGS: Lungs are well inflated. Lungs are clear. There is no evidence of pneumonia or pulmonary edema. PLEURA: No pleural effusion or pneumothorax. HEART AND MEDIASTINUM: The cardiomediastinal silhouette is unremarkable. BONES AND SOFT TISSUES: No acute osseous lesion. Soft tissues are unremarkable. UPPER ABDOMEN: No free air under the diaphragm. IMPRESSION: No acute radiographic abnormality. Signed by: Dr. Jignesh Doyle MD on 10/08/2018 4:03 PM
[2018-10-08] MEDS ORDERED: HYDROCODONE/APAP 10MG-325MG TAB PO ONE (18:15)
[2018-10-08] MEDS ORDERED: CYCLOBENZAPRINE HCL 10 MG TAB PO ONE (18:15)
[2018-10-08 18:23] LABS: BILIRUBIN,URINE NEGATIVE (NEGATIVE); CLARITY,URINE CLEAR (CLEAR); COLOR,URINE YELLOW (YELLOW); KETONES,URINE NEGATIVE (NEGATIVE); LEUKOCYTE ESTERASE ,URINE NEGATIVE (NEGATIVE); NITRITE,URINE NEGATIVE (NEGATIVE); PROTEIN,URINE DIPSTICK NEGATIVE (NEGATIVE); URINE UROBILINOGEN 0.2 mg/dL (0.2 - 1)
[2018-10-08 18:36] LABS: AMORPHOUS SEDIMENT,URINE MODERATE (FEW); BACTERIA,URINE MANY /HPF; EPITHELIAL CELLS,URINE MANY /LPF
== END 2018-10-08 19:05 | disposition home or self-care (01) ==
LOC: ER 14:30
DX: R07.89 Other chest pain (principal); K21.9 Gastro-esophageal reflux disease without esophagitis; E78.5 Hyperlipidemia, unspecified; F41.9 Anxiety disorder, unspecified
CPT/HCPCS: 36415; 71045; 80053; 81001; 82550; 82553; 83880; 84484; 85025; 85610; 85730; 93005; 99284

== ENCOUNTER → 2019-01-02 | Emergency (ER) | payer OTHER ==
[~2019-01-02] VITALS: Ht 149.9 cm; Wt 43.1 kg
--- OUTSIDE RECORDS SUMMARY | 2019-01-02 14:44 | XMS REPORT | Summary of Care ---
Author Author [facility] Organization [facility] Address Unknown Phone Unavailable Encounter [facility] Melvin(YAYO) [id number] Date(s): 05/24/18 - 05/24/18 [facility] [address] [place] [address]- Encounter Diagnosis Chest pain (Discharge Diagnosis) - 05/24/18 Discharge Disposition: Home or Self Care Attending Physician: Stevan Victor MD Vital Signs Most recent to 1 2 oldest [Reference Range]: Height 149.86 cm (05/24/18 10:18 AM) Temperature Oral 97.4 DegF [96.4-99.1 DegF] (05/24/18 10:18 AM) Blood Pressure 126/83 mmHg 137/86 mmHg [90-140/60-90 mmHg] (05/24/18 1:31 PM) (05/24/18 10:18 AM) Respiratory Rate 16 BRMIN 20 BRMIN [14-20 BRMIN] (05/24/18 1:31 PM) (05/24/18 10:18 AM) Peripheral Pulse 65 bpm 73 bpm Rate [60-100 bpm] (05/24/18 1:31 PM) (05/24/18 10:18 AM) Weight 51.42 kg (05/24/18 10:18 AM) Body Mass Index 22.9 m2 (05/24/18 10:18 AM) Problem List Condition Effective Dates Status Health Status Informant Active section(Confirmed) Fever(Confirmed) Active Pain(Confirmed) Active Allergies, Adverse Reactions, Alerts Substance Reaction Severity Status penicillins Active penicillin Active NKDA Active Medications aspirin 324 mg, 4 tab, Route: PO, Drug form: CHEWTAB, ONCE, Dosing Weight 51.42, kg, Jennifer ority: STAT, Start date: 05/24/18 11:27:00 CDT, Stop date: 05/24/18 11:27:00 CDT Notes: Take with food. Start Date: 05/24/18 Stop Date: 05/24/18 Status: Completed Saline Flush 0.9% 10 mL, Route: IVP, Drug Form: INJ, Dosing Weight 51.42, kg, PRN, PRN Line Flush, Start date: 05/24/18 11:27:00 CDT, Duration: 30 day, Stop date: 06/23/18 11:26: 00 CDT Notes: (Same as: BD Posiflush) Start Date: 05/24/18 Stop Date: 05/24/18 Status: Discontinued Sodium Chloride 0.9% (Bolus) IV 1,000 mL, 1000 ml/hr, Infuse Over: 1 hr, Route: IV, 1,000, Drug form: INJ, ONCE, Priority: STAT, Dosing Weight 51.42 kg, Start date: 05/24/18 11:27:00 CDT, Stop date: 05/24/18 11:27:00 CDT Start Date: 05/24/18 Stop Date: 05/24/18 Status: Completed Results ELECTROLYTES Most recent to 1 oldest [Reference Range]: Sodium Lvl [135-145 139 mEq/L mEq/L] (05/24/18 11:51 AM) Potassium Lvl 3.5 mEq/L [3.5-5.1 mEq/L] (05/24/18 11:51 AM) Chloride Lvl [95-109 104 mEq/L mEq/L] (05/24/18 11:51 AM) CO2 [24-32 mEq/L] 27 mEq/L (05/24/18 11:51 AM) AGAP [10.0-20.0 11.5 mEq/L mEq/L] (05/24/18 11:51 AM) CHEM PANEL Most recent to 1 oldest [Reference Range]: Creatinine Lvl 0.70 mg/dL [0.50-1.40 mg/dL] (05/24/18 11:51 AM) eGFR 105 mL/min/1.73m2 1 *NA* (05/24/18 11:51 AM) BUN [7-22 mg/dL] 8 mg/dL (05/24/18 11:51 AM) B/C Ratio [6-25] 11 (05/24/18 11:51 AM) Glucose Lvl [70-99 86 mg/dL mg/dL] (05/24/18 11:51 AM) Total Protein 7.6 g/dL [6.4-8.4 g/dL] (05/24/18 11:51 AM) Albumin Lvl [3.5-5.0 4.1 g/dL g/dL] (05/24/18 11:51 AM) Globulin [2.7-4.2 3.5 g/dL g/dL] (05/24/18 11:51 AM) A/G Ratio [0.7-1.6] 1.2 (05/24/18 11:51 AM) Calcium Lvl 9.1 mg/dL [8.5-10.5 mg/dL] (05/24/18 11:51 AM) ALT [0-65 unit/L] 24 unit/L (05/24/18 11:51 AM) AST [0-37 unit/L] 23 unit/L (05/24/18 11:51 AM) Alk Phos [39-136 62 unit/L unit/L] (05/24/18 11:51 AM) Bili Total [0.2-1.3 0.5 mg/dL mg/dL] (05/24/18 11:51 AM) 1Result Comment: The eGFR is calculated using the CKD-EPI formula. In most young, healthy individuals the eGFR will be >90 mL/min/1.73m2. The eGFR declines with age. An eGFR of 60-89 may be normal in some populations, particularly the elderly, for whom the CKD-EPI formula has not been extensively validated. Use of the eGFR is not recommended in the following populations: Individuals with unstable creatinine concentrations, including patients and those with serious co-morbid conditions. Patients with extremes in muscle mass or diet. The data above are obtained from the National Kidney Disease Education Program ( NKDEP) which additionally recommends that when the eGFR is used in patients with extremes of body mass index for purposes of drug dosing, the eGFR should be mul tiplied by the estimated BMI. CARDIAC ENZYMES Most recent to 1 oldest [Reference Range]: Total CK [12-191 119 unit/L unit/L] (05/24/18 11:51 AM) CK MB [0.5-3.6 <1.0 ng/mL ng/mL] (05/24/18 11:51 AM) CK MB Index <0.8 [0.0-2.5] (05/24/18 11:51 AM) Troponin-I <0.02 ng/mL [0.00-0.40 ng/mL] (05/24/18 11:51 AM) BNP [<=100 pg/mL] 7 pg/mL (05/24/18 11:51 AM) URINE AND STOOL Most recent to 1 oldest [Reference Range]: UA Turbidity [Clear] Slight *ABN* (05/24/18 11:53 AM) UA Color Ltyellow *NA* (05/24/18 11:53 AM) UA pH [5.0-8.0] 7.0 (05/24/18 11:53 AM) UA Spec Grav 1.011 [<=1.030] (05/24/18 11:53 AM) UA Glucose [Negative Negative mg/dL mg/dL] *NA* (05/24/18 11:53 AM) UA Blood [Negative] Moderate *ABN* (05/24/18 11:53 AM) UA Ketones [Negative Negative mg/dL mg/dL] *NA* (05/24/18 11:53 AM) UA Protein [Negative Negative mg/dL mg/dL] (05/24/18 11:53 AM) UA Urobilinogen <=1.0 mg/dL [0.1-1.0 mg/dL] *NA* (05/24/18 11:53 AM) UA Bili [Negative] Negative *NA* (05/24/18 11:53 AM) UA Leuk Est Negative [Negative] (05/24/18 11:53 AM) UA Nitrite Negative [Negative] (05/24/18 11:53 AM) UA WBC [0-5 /HPF] 1 /HPF (05/24/18 11:53 AM) UA RBC [0-2 /HPF] 3 /HPF *HI* (05/24/18 11:53 AM) UA Bacteria [None Occasional /HPF Seen /HPF] *NA* (05/24/18 11:53 AM) UA Sq Epi [Few /LPF] Many /LPF *ABN* (05/24/18 11:53 AM) UA Mucus [None Seen Few /LPF /LPF] *NA* (05/24/18 11:53 AM) HEMATOLOGY Most recent to 1 oldest [Reference Range]: WBC [3.7-10.4 K/CMM] 5.0 K/CMM (05/24/18 11:51 AM) RBC [4.20-5.40 4.36 M/CMM M/CMM] (05/24/18 11:51 AM) Hgb [12.0-16.0 g/dL] 11.1 g/dL *LOW* (05/24/18 11:51 AM) Hct [36.0-48.0 %] 34.0 % *LOW* (05/24/18 11:51 AM) MCV [80.0-98.0 fL] 78.1 fL *LOW* (05/24/18 11:51 AM) MCH [27.0-31.0 pg] 25.4 pg *LOW* (05/24/18 11:51 AM) MCHC [32.0-36.0 32.5 g/dL g/dL] (05/24/18 11:51 AM) RDW [11.5-14.5 %] 15.1 % *HI* (05/24/18 11:51 AM) MPV [7.4-10.4 fL] 9.0 fL (05/24/18 11:51 AM) Platelet [133-450 282 K/CMM K/CMM] (05/24/18 11:51 AM) Segs [45.0-75.0 %] 64.1 % (05/24/18 11:51 AM) Lymphocytes 24.4 % [20.0-40.0 %] (05/24/18 11:51 AM) Monocytes [2.0-12.0 10.2 % %] (05/24/18 11:51 AM) Eosinophils [0.0-4.0 0.7 % %] (05/24/18 11:51 AM) Basophils [0.0-1.0 0.6 % %] (05/24/18 11:51 AM) Segs-Bands # 3.2 K/CMM [1.5-8.1 K/CMM] (05/24/18 11:51 AM) Lymphocytes # 1.2 K/CMM [1.0-5.5 K/CMM] (05/24/18 11:51 AM) Monocytes # [0.0-0.8 0.5 K/CMM K/CMM] (05/24/18 11:51 AM) [employer] [None 1+ Seen] *ABN* (05/24/18 11:51 AM) Immunizations No data available for this section Procedures No data available for this section Social History Social History Type Response Smoking Status Never smoker; Exposure to Tobacco Smoke None; Cigarette Smoking Last 365 Days No; Reg Smoking Cessation Counseling No entered on: 05/24/18 Assessment and Plan No data available for this section
--- OUTSIDE RECORDS SUMMARY | 2019-01-02 14:44 | XMS REPORT | Summary of Care ---
Author Author [facility] Organization [facility] Address Unknown Phone Unavailable Encounter HQ Melvin(FIN) [id number] Date(s): 05/18/18 - 05/18/18 [facility] [address] [place] [address]- [phone] Encounter Diagnosis Acute chest pain (Discharge Diagnosis) - 05/18/18 Acute anxiety (Discharge Diagnosis) - 05/18/18 Discharge Disposition: Home or Self Care Attending Physician: Irene Resendiz DO Vital Signs 1 2 3 Most recent to oldest [Reference Range]: 149.86 cm (05/18/18 12:45 AM) Height 98.3 DegF (05/18/18 3:13 AM) 98.2 DegF (05/18/18 1:34 AM) 98.3 DegF (05/18/18 12:45 AM) Temperature Oral [96.4-99.1 DegF] 116/75 mmHg (05/18/18 3:13 AM) 160/93 mmHg *HI* (05/18/18 1:34 AM) 137/87 mmHg (05/18/18 12:45 AM) Blood Pressure [90-140/60-90 mmHg] 18 BRMIN (05/18/18 3:13 AM) 19 BRMIN (05/18/18 1:44 AM) 18 BRMIN (05/18/18 1:34 AM) Respiratory Rate [14-20 BRMIN] 87 bpm (05/18/18 1:34 AM) 97 bpm (05/18/18 12:45 AM) Peripheral Pulse Rate [60-100 bpm] 72.727 kg (05/18/18 12:45 AM) Weight 32.38 m2 (05/18/18 12:45 AM) Body Mass Index Problem List Condition Effective Dates Status Health Status Informant Active section(Confirmed) Fever(Confirmed) Active Pain(Confirmed) Active Allergies, Adverse Reactions, Alerts Substance Reaction Severity Status penicillins Active NKDA Active Medications Ativan 1 mg, 0.5 mL, Route: IVP, Drug form: INJ, ONCE, Dosing Weight 72.727, kg, Priori ty: STAT, Start date: 05/18/18 1:55:00 CDT, Stop date: 05/18/18 1:55:00 CDT Notes: (Same as: Ativan) Start Date: 05/18/18 Stop Date: 05/18/18 Status: Completed Results ELECTROLYTES Most recent to 1 oldest [Reference Range]: Sodium Lvl [135-145 143 mEq/L mEq/L] (05/18/18 2:25 AM) Potassium Lvl 3.6 mEq/L [3.5-5.1 mEq/L] (05/18/18 2:25 AM) Chloride Lvl [95-109 110 mEq/L mEq/L] *HI* (05/18/18 2:25 AM) CO2 [24-32 mEq/L] 23 mEq/L *LOW* (05/18/18 2:25 AM) AGAP [10.0-20.0 13.6 mEq/L mEq/L] (05/18/18 2:25 AM) CHEM PANEL Most recent to 1 oldest [Reference Range]: Creatinine Lvl 0.67 mg/dL [0.50-1.40 mg/dL] (05/18/18 2:25 AM) eGFR 107 mL/min/1.73m2 1 *NA* (05/18/18 2:25 AM) BUN [7-22 mg/dL] 15 mg/dL (05/18/18 2:25 AM) B/C Ratio [6-25] 22 (05/18/18 2:25 AM) Glucose Lvl [70-99 110 mg/dL mg/dL] *HI* (05/18/18 2:25 AM) Total Protein 7.4 g/dL [6.4-8.4 g/dL] (05/18/18 2:25 AM) Albumin Lvl [3.5-5.0 3.8 g/dL g/dL] (05/18/18 2:25 AM) Globulin [2.7-4.2 3.6 g/dL g/dL] (05/18/18 2:25 AM) A/G Ratio [0.7-1.6] 1.1 (05/18/18 2:25 AM) Calcium Lvl 8.6 mg/dL [8.5-10.5 mg/dL] (05/18/18 2:25 AM) ALT [0-65 unit/L] 19 unit/L (05/18/18 2:25 AM) AST [0-37 unit/L] 15 unit/L (05/18/18 2:25 AM) Alk Phos [39-136 62 unit/L unit/L] (05/18/18 2:25 AM) Bili Total [0.2-1.3 0.3 mg/dL mg/dL] (05/18/18 2:25 AM) Lipase Lvl [73-393 315 unit/L unit/L] (05/18/18 1:33 AM) 1Result Comment: The eGFR is calculated [...] 1 oldest [Reference Range]: Total CK [12-191 87 unit/L unit/L] (05/18/18 1:33 AM) CK MB [0.5-3.6 <1.0 ng/mL ng/mL] (05/18/18 1:33 AM) CK MB Index <1.1 [0.0-2.5] (05/18/18 1:33 AM) Troponin-I <0.02 ng/mL [0.00-0.40 ng/mL] (05/18/18 1:33 AM) ENDOCRINOLOGY Most recent to 1 oldest [Reference Range]: S Preg [Negative] Negative *NA* (05/18/18 1:33 AM) URINE AND STOOL Most recent to 1 oldest [Reference Range]: UA Turbidity [Clear] Clear (05/18/18 1:34 AM) UA Color [Yellow] Yellow *NA* (05/18/18 1:34 AM) UA pH [5.0-8.0] 6.5 (05/18/18 1:34 AM) UA Spec Grav 1.010 [<=1.030] (05/18/18 1:34 AM) UA Glucose Negative [Negative] (05/18/18 1:34 AM) UA Blood [Negative] Trace *ABN* (05/18/18 1:34 AM) UA Ketones Negative [Negative] *NA* (05/18/18 1:34 AM) UA Protein Negative [Negative] (05/18/18 1:34 AM) UA Urobilinogen 0.2 EU/dL [0.1-1.0 EU/dL] (05/18/18 1:34 AM) UA Bili [Negative] Negative *NA* (05/18/18 1:34 AM) UA Leuk Est Negative [Negative] (05/18/18 1:34 AM) UA Nitrite Negative [Negative] (05/18/18 1:34 AM) UA WBC [0-5 /HPF] <1 /HPF (05/18/18 1:34 AM) UA RBC [0-2 /HPF] 1 /HPF (05/18/18 1:34 AM) UA Bacteria [None Occasional /HPF Seen /HPF] *NA* (05/18/18 1:34 AM) UA Sq Epi [Few /LPF] Few /LPF *NA* (05/18/18 1:34 AM) HEMATOLOGY Most recent to 1 oldest [Reference Range]: WBC [3.7-10.4 K/CMM] 7.8 K/CMM (05/18/18 1:33 AM) RBC [4.20-5.40 4.24 M/CMM M/CMM] (05/18/18 1:33 AM) Hgb [12.0-16.0 g/dL] 10.9 g/dL *LOW* (05/18/18 1:33 AM) Hct [36.0-48.0 %] 33.4 % *LOW* (05/18/18 1: AM) MCV [80.0-98.0 fL] 78.7 fL *LOW* (05/18/18 1: AM) MCH [27.0-31.0 pg] 25.8 pg *LOW* (05/18/18: AM) MCHC [32.0-36.0 32.7 g/dL g/dL] (05/18/18 1:33 AM) RDW [11.5-14.5 %] 14.8 % *HI* (05/18/18 1: AM) MPV [7.4-10.4 fL] 9.2 fL (05/18/18 1:33 AM) Platelet [133-450 277 K/CMM K/CMM] (05/18/18 1: AM) Segs [45.0-75.0 %] 76.9 % *HI* (05/18/18 1:33 AM) Lymphocytes 13.4 % [20.0-40.0 %] *LOW* (05/18/18 1:33 AM) Monocytes [2.0-12.0 8.4 % %] (05/18/18 1:33 AM) Eosinophils [0.0-4.0 0.9 % %] (05/18/18 1:33 AM) Basophils [0.0-1.0 0.4 % %] (05/18/18 1:33 AM) Segs-Bands # 6.0 K/CMM [1.5-8.1 K/CMM] (05/18/18 1:33 AM) Lymphocytes # 1.0 K/CMM [1.0-5.5 K/CMM] (05/18/18 1:33 AM) Monocytes # [0.0-0.8 0.7 K/CMM K/CMM] (05/18/18 1:33 AM) Eosinophils # 0.1 K/CMM [0.0-0.5 K/CMM] (05/18/18 1:33 AM) Microcyte [None 1+ Seen] *ABN* (05/18/18 1:33 AM) PT [12.0-14.7 13.8 seconds seconds] (05/18/18 1:33 AM) INR [0.85-1.17] 1.06 (05/18/18 1:33 AM) PTT [22.9-35.8 30.7 seconds seconds] (05/18/18 1:33 AM) Immunizations No data available for this section Procedures No data available for this section Social History Social History Type Response Smoking Status Never smoker; Exposure to Tobacco Smoke None; Cigarette Smoking Last 365 Days No; Reg Smoking Cessation Counseling No entered on: 05/10/18 Assessment and Plan No data available for this section
--- OUTSIDE RECORDS SUMMARY | 2019-01-02 14:44 | XMS REPORT | Summary of Care ---
Author Author [facility] Organization [facility] Address Unknown Phone Unavailable Encounter J LUIS Charles(FIN) [id number] Date(s): 06/08/18 - 06/08/18 [facility] [address] [place] [address]- Encounter Diagnosis Anxiety (Discharge Diagnosis) - 06/08/18 Anxiety disorder, unspecified (Final) - 06/12/18 Shortness of breath (Final) - Allergy status to penicillin (Final) - Discharge Disposition: Home or Self Care Attending Physician: Aníbal Leigh MD Vital Signs 1 2 3 Most recent to oldest [Reference Range]: 162.56 cm (06/08/18 10:54 AM) Height 98.5 DegF (06/08/18 10:54 AM) Temperature Oral [96.4-99.1 DegF] 126/84 mmHg (06/08/18 3:03 PM) 133/86 mmHg (06/08/18 1:26 PM) 127/81 mmHg (06/08/18 11:33 AM) Blood Pressure [90-140/60-90 mmHg] 18 BRMIN (06/08/18 10:54 AM) Respiratory Rate [14-20 BRMIN] 89 bpm (06/08/18 3:03 PM) 70 bpm (06/08/18 1:26 PM) 69 bpm (06/08/18 11:33 AM) Peripheral Pulse Rate [60-100 bpm] 50 kg (06/08/18 10:54 AM) Weight 18.92 m2 (06/08/18 10:54 AM) Body Mass Index Problem List Condition Effective Dates Status Health Status Informant Active section(Confirmed) Fever(Confirmed) Active Pain(Confirmed) Active Allergies, Adverse Reactions, Alerts Substance Reaction Severity Status penicillins Active penicillin Active Medications Ativan 0.5 mg, Route: PO, Drug form: TAB, ONCE, Dosing Weight 50, kg, Priority: STAT, S tart date: 06/08/18 11:39:00 CDT, Stop date: 06/08/18 11:39:00 CDT Start Date: 06/08/18 Stop Date: 06/08/18 Status: Completed Results ELECTROLYTES Most recent to 1 oldest [Reference Range]: Sodium Lvl [135-145 142 mEq/L mEq/L] (06/08/18 11:03 AM) Potassium Lvl 3.5 mEq/L [3.5-5.1 mEq/L] (06/08/18 11:03 AM) Chloride Lvl [95-109 105 mEq/L mEq/L] (06/08/18 11:03 AM) CO2 [24-32 mEq/L] 25 mEq/L (06/08/18 11:03 AM) AGAP [10.0-20.0 15.5 mEq/L mEq/L] (06/08/18 11:03 AM) CHEM PANEL Most recent to 1 oldest [Reference Range]: Creatinine Lvl 0.68 mg/dL [0.50-1.40 mg/dL] (06/08/18 11:03 AM) eGFR 106 mL/min/1.73m2 1 *NA* (06/08/18 11:03 AM) BUN [7-22 mg/dL] 12 mg/dL (06/08/18 11:03 AM) B/C Ratio [6-25] 18 (06/08/18 11:03 AM) Glucose Lvl [70-99 83 mg/dL mg/dL] (06/08/18 11:03 AM) Total Protein 7.2 g/dL [6.4-8.4 g/dL] (06/08/18 11:03 AM) Albumin Lvl [3.5-5.0 3.8 g/dL g/dL] (06/08/18 11:03 AM) Globulin [2.7-4.2 3.4 g/dL g/dL] (06/08/18 11:03 AM) A/G Ratio [0.7-1.6] 1.1 (06/08/18 11:03 AM) Calcium Lvl 8.6 mg/dL [8.5-10.5 mg/dL] (06/08/18 11:03 AM) ALT [0-65 unit/L] 21 unit/L (06/08/18 11:03 AM) AST [0-37 unit/L] 18 unit/L (06/08/18 11:03 AM) Alk Phos [39-136 57 unit/L unit/L] (06/08/18 11:03 AM) Bili Total [0.2-1.3 0.6 mg/dL mg/dL] (06/08/18 11:03 AM) 1Result Comment: The eGFR is calculated [...] 1 oldest [Reference Range]: Total CK [12-191 89 unit/L unit/L] (06/08/18 11:03 AM) CK MB [0.5-3.6 <1.0 ng/mL ng/mL] (06/08/18 11:03 AM) CK MB Index <1.1 [0.0-2.5] (06/08/18 11:03 AM) Troponin-I <0.02 ng/mL [0.00-0.40 ng/mL] (06/08/18 11:03 AM) HEMATOLOGY Most recent to 1 oldest [Reference Range]: WBC [3.7-10.4 K/CMM] 6.8 K/CMM (06/08/18 11:03 AM) RBC [4.20-5.40 4.15 M/CMM M/CMM] *LOW* (06/08/18 11:03 AM) Hgb [12.0-16.0 g/dL] 10.4 g/dL *LOW* (06/08/18 11:03 AM) Hct [36.0-48.0 %] 32.0 % *LOW* (06/08/18 11:03 AM) MCV [80.0-98.0 fL] 77.1 fL *LOW* (06/08/18 11:03 AM) MCH [27.0-31.0 pg] 25.0 pg *LOW* (06/08/18 11:03 AM) MCHC [32.0-36.0 32.4 g/dL g/dL] (06/08/18 11:03 AM) RDW [11.5-14.5 %] 15.2 % *HI* (06/08/18 11:03 AM) MPV [7.4-10.4 fL] 8.8 fL (06/08/18 11:03 AM) Platelet [133-450 234 K/CMM K/CMM] (06/08/18 11:03 AM) Segs [45.0-75.0 %] 76.0 % *HI* (06/08/18 11:03 AM) Lymphocytes 15.0 % [20.0-40.0 %] *LOW* (06/08/18 11:03 AM) Monocytes [2.0-12.0 6.7 % %] (06/08/18 11:03 AM) Eosinophils [0.0-4.0 1.7 % %] (06/08/18 11:03 AM) Basophils [0.0-1.0 0.6 % %] (06/08/18 11:03 AM) Neutrophils # 5.2 K/CMM [1.5-8.1 K/CMM] (06/08/18 11:03 AM) Lymphocytes # 1.0 K/CMM [1.0-5.5 K/CMM] (06/08/18 11:03 AM) Monocytes # [0.0-0.8 0.5 K/CMM K/CMM] (06/08/18 11:03 AM) Eosinophils # 0.1 K/CMM [0.0-0.5 K/CMM] (06/08/18 11:03 AM) Microcyte [None 1+ Seen] *ABN* (06/08/18 11:03 AM) Immunizations No data available for this section Procedures Procedure Date Related Diagnosis Body Site Status section Completed Lithotripsy Completed Social History Social History Type Response Substance Abuse Use: None. Alcohol Never Smoking Status Never smoker; Exposure to Tobacco Smoke None; Cigarette Smoking Last 365 Days No; Reg Smoking Cessation Counseling No entered on: 10/12/18 Assessment and Plan No data available for this section
--- OUTSIDE RECORDS SUMMARY | 2019-01-02 14:44 | XMS REPORT | Summary of Care ---
Author Author [facility] Organization [facility] Address Unknown Phone Unavailable Encounter J LUIS Charles(YAYO) [id number] Date(s): 05/10/18 - 05/10/18 [facility] [address] [place] [address]- Discharge Disposition: Home or Self Care Attending Physician: Elijah Phoenix MD Vital Signs 1 2 3 Most recent to oldest [Reference Range]: 162.56 cm (05/10/18 1:18 PM) Height 98.1 DegF (05/10/18 7:28 PM) 97.9 DegF (05/10/18 5:20 PM) 98.1 DegF (05/10/18 1:18 PM) Temperature Oral [96.4-99.1 DegF] 119/68 mmHg (05/10/18 7:28 PM) 136/92 mmHg (05/10/18 5:20 PM) 147/98 mmHg *HI* (05/10/18 1:18 PM) Blood Pressure [90-140/60-90 mmHg] 16 BRMIN (05/10/18 7:28 PM) 16 BRMIN (05/10/18 5:20 PM) 18 BRMIN (05/10/18 1:18 PM) Respiratory Rate [14-20 BRMIN] 79 bpm (05/10/18 7:28 PM) 90 bpm (05/10/18 5:20 PM) 97 bpm (05/10/18 1:18 PM) Peripheral Pulse Rate [60-100 bpm] 63.636 kg (05/10/18 1:18 PM) Weight 24.08 m2 (05/10/18 1:18 PM) Body Mass Index Problem List Condition Effective Dates Status Health Status Informant Active section(Confirmed) Fever(Confirmed) Active Pain(Confirmed) Active Allergies, Adverse Reactions, Alerts Substance Reaction Severity Status penicillins Active NKDA Active Medications Ativan 1 mg, 0.5 mL, Route: IVP, Drug form: INJ, ONCE, Dosing Weight 63.636, kg, Priori ty: STAT, Start date: 05/10/18 17:15:00 CDT, Stop date: 05/10/18 17:15:00 CDT Notes: (Same as: Ativan) Start Date: 05/10/18 Stop Date: 05/10/18 Status: Completed Results ELECTROLYTES Most recent to 1 oldest [Reference Range]: Sodium Lvl [135-145 139 mEq/L mEq/L] (05/10/18 5:29 PM) Potassium Lvl 3.7 mEq/L [3.5-5.1 mEq/L] (05/10/18 5:29 PM) Chloride Lvl [95-109 106 mEq/L mEq/L] (05/10/18 5:29 PM) CO2 [24-32 mEq/L] 23 mEq/L *LOW* (05/10/18 5:29 PM) AGAP [10.0-20.0 13.7 mEq/L mEq/L] (05/10/18 5:29 PM) CHEM PANEL Most recent to 1 oldest [Reference Range]: Creatinine Lvl 0.64 mg/dL [0.50-1.40 mg/dL] (05/10/18 5:29 PM) eGFR 108 mL/min/1.73m2 1 *NA* (05/10/18 5:29 PM) BUN [7-22 mg/dL] 14 mg/dL (05/10/18 5:29 PM) B/C Ratio [6-25] 22 (05/10/18 5:29 PM) Glucose Lvl [70-99 89 mg/dL mg/dL] (05/10/18 5:29 PM) Total Protein 7.8 g/dL [6.4-8.4 g/dL] (05/10/18 5:29 PM) Albumin Lvl [3.5-5.0 4.0 g/dL g/dL] (05/10/18 5:29 PM) Globulin [2.7-4.2 3.8 g/dL g/dL] (05/10/18 5:29 PM) A/G Ratio [0.7-1.6] 1.1 (05/10/18 5:29 PM) Calcium Lvl 8.8 mg/dL [8.5-10.5 mg/dL] (05/10/18 5:29 PM) ALT [0-65 unit/L] 23 unit/L (05/10/18 5:29 PM) AST [0-37 unit/L] 14 unit/L (05/10/18 5:29 PM) Alk Phos [39-136 69 unit/L unit/L] (05/10/18 5:29 PM) Bili Total [0.2-1.3 0.3 mg/dL mg/dL] (05/10/18 5:29 PM) 1Result Comment: The eGFR is calculated using [...] Most recent to 1 oldest [Reference Range]: CK MB [0.5-3.6 <1.0 ng/mL ng/mL] (05/10/18 5:29 PM) Troponin-I <0.02 ng/mL [0.00-0.40 ng/mL] (05/10/18 5:29 PM) ENDOCRINOLOGY Most recent to 1 oldest [Reference Range]: S Preg [Negative] Negative *NA* (05/10/18 5:29 PM) HEMATOLOGY Most recent to 1 oldest [Reference Range]: WBC [3.7-10.4 K/CMM] 7.3 K/CMM (05/10/18 5:29 PM) RBC [4.20-5.40 4.37 M/CMM M/CMM] (05/10/18 5:29 PM) Hgb [12.0-16.0 g/dL] 11.4 g/dL *LOW* (05/10/18 5:29 PM) Hct [36.0-48.0 %] 34.8 % *LOW* (05/10/18 5:29 PM) MCV [80.0-98.0 fL] 79.6 fL *LOW* (05/10/18 5:29 PM) MCH [27.0-31.0 pg] 26.1 pg *LOW* (05/10/18 5:29 PM) MCHC [32.0-36.0 32.8 g/dL g/dL] (05/10/18 5:29 PM) RDW [11.5-14.5 %] 15.4 % *HI* (05/10/18 5:29 PM) MPV [7.4-10.4 fL] 9.0 fL (05/10/18 5:29 PM) Platelet [133-450 276 K/CMM K/CMM] (05/10/18 5:29 PM) Segs [45.0-75.0 %] 68.4 % (05/10/18 5:29 PM) Lymphocytes 22.4 % [20.0-40.0 %] (05/10/18 5:29 PM) Monocytes [2.0-12.0 8.1 % %] (05/10/18 5:29 PM) Eosinophils [0.0-4.0 0.7 % %] (05/10/18 5:29 PM) Basophils [0.0-1.0 0.4 % %] (05/10/18 5:29 PM) Segs-Bands # 5.0 K/CMM [1.5-8.1 K/CMM] (05/10/18 5:29 PM) Lymphocytes # 1.6 K/CMM [1.0-5.5 K/CMM] (05/10/18 5:29 PM) Monocytes # [0.0-0.8 0.6 K/CMM K/CMM] (05/10/18 5:29 PM) Eosinophils # 0.1 K/CMM [0.0-0.5 K/CMM] (05/10/18 5:29 PM) D-Dimer 0.50 ug/mL FEU *NA* (05/10/18 5:29 PM) Immunizations No data available for this section Procedures No data available for this section Social History Social History Type Response Smoking Status Never smoker; Exposure to Tobacco Smoke None; Cigarette Smoking Last 365 Days No; Reg Smoking Cessation Counseling No entered on: 05/10/18 Assessment and Plan No data available for this section
--- OUTSIDE RECORDS SUMMARY | 2019-01-02 14:44 | XMS REPORT | Summary of Care ---
Author Author [facility] Organization [facility] Address Unknown Phone Unavailable Encounter HQ Melvin(FIN) [id number] Date(s): 06/13/18 - 06/13/18 [facility] [address] [place] [address]- Encounter Diagnosis Flank pain (Discharge Diagnosis) - 06/13/18 Unspecified abdominal pain (Final) - 06/18/18 Discharge Disposition: Home or Self Care Attending Physician: Irene Resendiz DO Vital Signs Most recent to 1 2 oldest [Reference Range]: Height 162.56 cm (06/13/18 6:34 PM) Temperature Oral 98.1 DegF 98.4 DegF [96.4-99.1 DegF] (06/13/18 10:50 PM) (06/13/18 6:34 PM) Blood Pressure 135/53 mmHg 148/77 mmHg [90-140/60-90 mmHg] (06/13/18 10:50 PM) *HI* (06/13/18 6:34 PM) Respiratory Rate 18 BRMIN 18 BRMIN [14-20 BRMIN] (06/13/18 10:50 PM) (06/13/18 6:34 PM) Peripheral Pulse 72 bpm 82 bpm Rate [60-100 bpm] (06/13/18 10:50 PM) (06/13/18 6:34 PM) Weight 50 kg (06/13/18 6:34 PM) Body Mass Index 18.92 m2 (06/13/18 6:34 PM) Problem List Condition Effective Dates Status Health Status Informant Active section(Confirmed) Fever(Confirmed) Active Pain(Confirmed) Active Allergies, Adverse Reactions, Alerts Substance Reaction Severity Status penicillins Active penicillin Active Medications Flexeril 10 mg oral tablet 10 mg, PO, TID, PRN Muscle Spasm, X 10 day, # 30 tab, 0 Refill(s) Start Date: 06/13/18 Stop Date: 06/23/18 Status: Completed ibuprofen 600 mg oral tablet 600 mg=1 tab, PO, Q6H, PRN Pain or Fever, Take with food, X 10 day, # 40 tab, 0 Refill(s) Start Date: 06/13/18 Stop Date: 06/23/18 Status: Completed [place] 5/325 oral tablet 1 tab, Route: PO, Drug Form: TAB, Dosing Weight 50, kg, ONCE, STAT, Start date: 06/13/18 22:53:00 CDT, Stop date: 06/13/18 22:53:00 CDT Start Date: 06/13/18 Stop Date: 06/13/18 Status: Completed Ultram 50 mg oral tablet 50 mg=1 tab, PO, Q6H, PRN pain, # 20 tab, 0 Refill(s) Start Date: 06/13/18 Stop Date: 06/18/18 Status: Completed Zofran ODT 4 mg oral tablet, disintegrating 4 mg=1 tab, PO, Q8H, PRN as needed for nausea/vomiting, # 12 tab, 0 Refill(s) Start Date: 06/13/18 Stop Date: 09/22/18 Status: Discontinued Results ELECTROLYTES Most recent to 1 oldest [Reference Range]: Sodium Lvl [135-145 142 mEq/L mEq/L] (06/13/18 7:06 PM) Potassium Lvl 3.7 mEq/L [3.5-5.1 mEq/L] (06/13/18 7:06 PM) Chloride Lvl [95-109 106 mEq/L mEq/L] (06/13/18 7:06 PM) CO2 [24-32 mEq/L] 25 mEq/L (06/13/18 7:06 PM) AGAP [10.0-20.0 14.7 mEq/L mEq/L] (06/13/18 7:06 PM) CHEM PANEL Most recent to 1 oldest [Reference Range]: Creatinine Lvl 0.71 mg/dL [0.50-1.40 mg/dL] (06/13/18 7:06 PM) eGFR 104 mL/min/1.73m2 1 *NA* (06/13/18 7:06 PM) BUN [7-22 mg/dL] 16 mg/dL (06/13/18 7:06 PM) B/C Ratio [6-25] 23 (06/13/18 7:06 PM) Glucose Lvl [70-99 95 mg/dL mg/dL] (06/13/18 7:06 PM) Total Protein 7.4 g/dL [6.4-8.4 g/dL] (06/13/18 7:06 PM) Albumin Lvl [3.5-5.0 3.9 g/dL g/dL] (06/13/18 7:06 PM) Globulin [2.7-4.2 3.5 g/dL g/dL] (06/13/18 7:06 PM) A/G Ratio [0.7-1.6] 1.1 (06/13/18 7:06 PM) Calcium Lvl 8.7 mg/dL [8.5-10.5 mg/dL] (06/13/18 7:06 PM) ALT [0-65 unit/L] 17 unit/L (06/13/18 7:06 PM) AST [0-37 unit/L] 14 unit/L (06/13/18 7:06 PM) Alk Phos [39-136 53 unit/L unit/L] (06/13/18 7:06 PM) Bili Total [0.2-1.3 0.2 mg/dL mg/dL] (06/13/18 7:06 PM) Lipase Lvl [73-393 408 unit/L unit/L] *HI* (06/13/18 7:06 PM) 1Result Comment: The eGFR is calculated [...] be mul tiplied by the estimated BMI. ENDOCRINOLOGY Most recent to 1 oldest [Reference Range]: S Preg [Negative] Negative *NA* (06/13/18 7:06 PM) URINE AND STOOL Most recent to 1 oldest [Reference Range]: UA Turbidity [Clear] Slight *ABN* (06/13/18 6:43 PM) UA Color Ltyellow *NA* (06/13/18 6:43 PM) UA pH [5.0-8.0] 6.0 (06/13/18 6:43 PM) UA Spec Grav 1.023 [<=1.030] (06/13/18 6:43 PM) UA Glucose [Negative Negative mg/dL mg/dL] *NA* (06/13/18 6:43 PM) UA Blood [Negative] Negative (06/13/18 6:43 PM) UA Ketones [Negative Negative mg/dL mg/dL] *NA* (06/13/18 6:43 PM) UA Protein [Negative Negative mg/dL mg/dL] (06/13/18 6:43 PM) UA Urobilinogen <=1.0 mg/dL [0.1-1.0 mg/dL] *NA* (06/13/18 6:43 PM) UA Bili [Negative] Negative *NA* (06/13/18 6:43 PM) UA Leuk Est Negative [Negative] (06/13/18 6:43 PM) UA Nitrite Negative [Negative] (06/13/18 6:43 PM) UA WBC [0-5 /HPF] 2 /HPF (06/13/18 6:43 PM) UA RBC [0-2 /HPF] 1 /HPF (06/13/18 6:43 PM) UA Sq Epi [Few /LPF] Many /LPF *ABN* (06/13/18 6:43 PM) UA Mucus [None Seen Few /LPF /LPF] *NA* (06/13/18 6:43 PM) HEMATOLOGY Most recent to 1 oldest [Reference Range]: WBC [3.7-10.4 K/CMM] 5.7 K/CMM (06/13/18 7:06 PM) RBC [4.20-5.40 4.19 M/CMM M/CMM] *LOW* (06/13/18 7:06 PM) Hgb [12.0-16.0 g/dL] 10.3 g/dL *LOW* (06/13/18 7:06 PM) Hct [36.0-48.0 %] 32.2 % *LOW* (06/13/18 7:06 PM) MCV [80.0-98.0 fL] 76.9 fL *LOW* (06/13/18 7:06 PM) MCH [27.0-31.0 pg] 24.6 pg *LOW* (06/13/18 7:06 PM) MCHC [32.0-36.0 32.0 g/dL g/dL] (06/13/18 7:06 PM) RDW [11.5-14.5 %] 15.1 % *HI* (06/13/18 7:06 PM) MPV [7.4-10.4 fL] 8.9 fL (06/13/18 7:06 PM) Platelet [133-450 260 K/CMM K/CMM] (06/13/18 7:06 PM) Segs [45.0-75.0 %] 61.3 % (06/13/18 7:06 PM) Lymphocytes 24.8 % [20.0-40.0 %] (06/13/18 7:06 PM) Monocytes [2.0-12.0 12.0 % %] (06/13/18 7:06 PM) Eosinophils [0.0-4.0 1.4 % %] (06/13/18 7:06 PM) Basophils [0.0-1.0 0.5 % %] (06/13/18 7:06 PM) Neutrophils # 3.5 K/CMM [1.5-8.1 K/CMM] (06/13/18 7:06 PM) Lymphocytes # 1.4 K/CMM [1.0-5.5 K/CMM] (06/13/18 7:06 PM) Monocytes # [0.0-0.8 0.7 K/CMM K/CMM] (06/13/18 7:06 PM) Eosinophils # 0.1 K/CMM [0.0-0.5 K/CMM] (06/13/18 7:06 PM) Microcyte [None 1+ Seen] *ABN* (06/13/18 7:06 PM) Immunizations No data available for this [...]
--- OUTSIDE RECORDS SUMMARY | 2019-01-02 14:44 | XMS REPORT | Summary of Care ---
Author Author [facility] Organization [facility] Address Unknown Phone Unavailable Encounter [facility]) [phone] Date(s): 06/07/18 - 06/07/18 [facility] [id number] [place] [address]- Encounter Diagnosis Epigastric abdominal pain (Discharge Diagnosis) - 06/07/18 Epigastric pain (Final) - 06/12/18 Left upper quadrant pain (Final) - Diarrhea, unspecified (Final) - Anxiety disorder, unspecified (Final) - Essential (primary) hypertension (Final) - Iron deficiency anemia, unspecified (Final) - Allergy status to penicillin (Final) - Discharge Disposition: Home or Self Care Attending Physician: Iva Farris MD Vital Signs 1 2 3 Most recent to oldest [Reference Range]: 149.86 cm (06/07/18 7:40 AM) Height 97.9 DegF (06/07/18 11:29 AM) 98.2 DegF (06/07/18 7:40 AM) Temperature Oral [96.4-99.1 DegF] 123/75 mmHg (06/07/18 11:29 AM) 144/98 mmHg *HI* (06/07/18 9:30 AM) 139/89 mmHg (06/07/18 9:22 AM) Blood Pressure [90-140/60-90 mmHg] 15 BRMIN (06/07/18 11:29 AM) 15 BRMIN (06/07/18 9:30 AM) 14 BRMIN (06/07/18 9:22 AM) Respiratory Rate [14-20 BRMIN] 72 bpm (06/07/18 7:40 AM) Peripheral Pulse Rate [60-100 bpm] 50.909 kg (06/07/18 7:40 AM) Weight 22.67 m2 (06/07/18 7:40 AM) Body Mass Index Problem List Condition Effective Dates Status Health Status Informant Active section(Confirmed) Fever(Confirmed) Active Pain(Confirmed) Active Allergies, Adverse Reactions, Alerts Substance Reaction Severity Status penicillins Active penicillin Active Medications GI cocktail 30 mL, Route: PO, Dosing Weight 50.909, kg, ONCE, STAT, Start date: 06/07/18 8:3 4:00 CDT, Stop date: 06/07/18 8:34:00 CDT Start Date: 06/07/18 Stop Date: 06/07/18 Status: Completed morphine Sulfate 4 mg, Route: IM, ONCE, Dosing Weight 50.909, kg, Priority: STAT, Start date: 10:19:00 CDT, Stop date: 06/07/18 10:19:00 CDT Start Date: 06/07/18 Stop Date: 06/07/18 Status: Completed NS (Bolus) IV 1,000 mL, 1,000 ml/hr, Infuse Over: 1 hr, Route: IV, ONCE, Priority: STAT, Dosin g Weight 50.909 kg, Start date: 06/07/18 8:48:00 CDT, Stop date: 06/07/18 8:48:0 0 CDT Start Date: 06/07/18 Stop Date: 06/07/18 Status: Completed Pepcid 40 mg, Route: IVP, ONCE, Dosing Weight 50.909, kg, Priority: STAT, Start date: 0 06/07/18 8:48:00 CDT, Stop date: 06/07/18 8:48:00 CDT Start Date: 06/07/18 Stop Date: 06/07/18 Status: Completed Saline Flush 0.9% 10 mL, Route: IVP, Drug Form: INJ, Dosing Weight 50.909, kg, PRN, PRN Line Flush , Start date: 06/07/18 8:32:00 CDT, Duration: 30 day, Stop date: 07/07/18 8:31:0 0 CDT Notes: (Same as: BD Posiflush) Start Date: 06/07/18 Stop Date: 06/07/18 Status: Discontinued tramadol 50 mg oral tablet 50 mg=1 tab, PO, Q6H, PRN Pain, X 5 day, # 15 tab, 0 Refill(s) Start Date: 06/07/18 Stop Date: 06/12/18 Status: Completed Zofran ODT 4 mg, Route: PO, Drug form: TABDIS, ONCE, Dosing Weight 50.909, kg, Priority: ST AT, Start date: 06/07/18 8:48:00 CDT, Stop date: 06/07/18 8:48:00 CDT Start Date: 06/07/18 Stop Date: 06/07/18 Status: Completed Results ELECTROLYTES Most recent to 1 oldest [Reference Range]: Sodium Lvl [135-145 141 mEq/L mEq/L] (06/07/18 9:10 AM) Potassium Lvl 3.2 mEq/L [3.5-5.1 mEq/L] *LOW* (06/07/18 9:10 AM) Chloride Lvl [95-109 102 mEq/L mEq/L] (06/07/18 9:10 AM) CO2 [24-32 mEq/L] 26 mEq/L (06/07/18 9:10 AM) AGAP [10.0-20.0 16.2 mEq/L mEq/L] (06/07/18 9:10 AM) CHEM PANEL Most recent to 1 oldest [Reference Range]: Creatinine Lvl 0.67 mg/dL [0.50-1.40 mg/dL] (06/07/18 9:10 AM) eGFR 107 mL/min/1.73m2 1 *NA* (06/07/18 9:10 AM) BUN [7-22 mg/dL] 12 mg/dL (06/07/18 9:10 AM) Glucose Lvl [70-99 85 mg/dL mg/dL] (06/07/18 9:10 AM) Total Protein 8.0 g/dL [6.4-8.4 g/dL] (06/07/18 9:10 AM) Albumin Lvl [3.5-5.0 4.1 g/dL g/dL] (06/07/18 9:10 AM) Globulin [2.7-4.2 3.9 g/dL g/dL] (06/07/18 9:10 AM) A/G Ratio [0.7-1.6] 1.1 (06/07/18 9:10 AM) Calcium Lvl 8.8 mg/dL [8.5-10.5 mg/dL] (06/07/18 9:10 AM) ALT [0-65 unit/L] 23 unit/L (06/07/18 9:10 AM) AST [0-37 unit/L] 24 unit/L (06/07/18 9:10 AM) Alk Phos [39-136 64 unit/L unit/L] (06/07/18 9:10 AM) Bili Total [0.2-1.3 0.6 mg/dL mg/dL] (06/07/18 9:10 AM) Bili Direct [0.0-0.3 0.1 mg/dL mg/dL] (06/07/18 9:10 AM) Bili Indirect 0.5 mg/dL [0.0-1.0 mg/dL] (06/07/18 9:10 AM) Lipase Lvl [73-393 310 unit/L unit/L] (06/07/18 9:10 AM) 1Result Comment: The eGFR is calculated [...] Most recent to 1 oldest [Reference Range]: Troponin-I <0.02 ng/mL [0.00-0.40 ng/mL] (06/07/18 9:10 AM) URINE CHEM Most recent to 1 oldest [Reference Range]: U Preg [Negative] Negative (06/07/18 9:10 AM) URINE AND STOOL Most recent to 1 oldest [Reference Range]: UA Turbidity [Clear] Clear (06/07/18 9:10 AM) UA Color [Yellow] Yellow *NA* (06/07/18 9:10 AM) UA pH [5.0-8.0] 5.0 (06/07/18 9:10 AM) UA Spec Grav 1.021 [<=1.030] (06/07/18 9:10 AM) UA Glucose [Negative Negative mg/dL mg/dL] *NA* (06/07/18 9:10 AM) UA Blood [Negative] Small *ABN* (06/07/18 9:10 AM) UA Ketones [Negative Negative mg/dL mg/dL] *NA* (06/07/18 9:10 AM) UA Protein [Negative Negative mg/dL mg/dL] (06/07/18 9:10 AM) UA Urobilinogen <=1.0 mg/dL [0.1-1.0 mg/dL] *NA* (06/07/18 9:10 AM) UA Bili [Negative] Negative *NA* (06/07/18 9:10 AM) UA Leuk Est Negative [Negative] (06/07/18 9:10 AM) UA Nitrite Negative [Negative] (06/07/18 9:10 AM) UA WBC [0-5 /HPF] 5 /HPF (06/07/18 9:10 AM) UA RBC [0-2 /HPF] 2 /HPF (06/07/18 9:10 AM) UA Bacteria [None Moderate /HPF Seen /HPF] *ABN* (06/07/18 9:10 AM) UA Sq Epi [Few /LPF] Moderate /LPF *ABN* (06/07/18 9:10 AM) UA Mucus [None Seen Many /LPF /LPF] *ABN* (06/07/18 9:10 AM) HEMATOLOGY Most recent to 1 oldest [Reference Range]: WBC [3.7-10.4 K/CMM] 5.6 K/CMM (06/07/18 9:10 AM) RBC [4.20-5.40 4.57 M/CMM M/CMM] (06/07/18 9:10 AM) Hgb [12.0-16.0 g/dL] 11.5 g/dL *LOW* (06/07/18 9:10 AM) Hct [36.0-48.0 %] 35.2 % *LOW* (06/07/18 9:10 AM) MCV [80.0-98.0 fL] 77.1 fL *LOW* (06/07/18 9:10 AM) MCH [27.0-31.0 pg] 25.2 pg *LOW* (06/07/18 9:10 AM) MCHC [32.0-36.0 32.7 g/dL g/dL] (06/07/18 9:10 AM) RDW [11.5-14.5 %] 15.0 % *HI* (06/07/18 9:10 AM) MPV [7.4-10.4 fL] 9.3 fL (06/07/18 9:10 AM) Platelet [133-450 257 K/CMM K/CMM] (06/07/18 9:10 AM) Segs [45.0-75.0 %] 51.9 % (06/07/18 9:10 AM) Lymphocytes 35.3 % [20.0-40.0 %] (06/07/18 9:10 AM) Monocytes [2.0-12.0 9.8 % %] (06/07/18 9:10 AM) Eosinophils [0.0-4.0 2.6 % %] (06/07/18 9:10 AM) Basophils [0.0-1.0 0.4 % %] (06/07/18 9:10 AM) Neutrophils # 2.9 K/CMM [1.5-8.1 K/CMM] (06/07/18 9:10 AM) Lymphocytes # 2.0 K/CMM [1.0-5.5 K/CMM] (06/07/18 9:10 AM) Monocytes # [0.0-0.8 0.5 K/CMM K/CMM] (06/07/18 9:10 AM) Eosinophils # 0.1 K/CMM [0.0-0.5 K/CMM] (06/07/18 9:10 AM) Microcyte [None 1+ Seen] *ABN* (06/07/18 9:10 AM) Immunizations No data available for this [...]
--- OUTSIDE RECORDS SUMMARY | 2019-01-02 14:44 | XMS REPORT | Continuity of Care Document ---
Author Author [facility] Interface Address Unknown Phone Unavailable Problems Problem Status Onset Date Classification Date Reported Comments Source CHEST PAIN Active 10/12/2018 [place] ACALCULOUS CHOLECYSTITIS, DYSPHAGIA Active 09/21/2018 [place] ACALCULOUS CHOLECYSTITIS Active 09/21/2018 [place] NUMBNESS AND SWELLING TO THROAT Active 08/03/2018 [place] THROAT PAIN Active 08/02/2018 [place] SORE THROAT Active 06/29/2018 [facility] Unspecified abdominal pain 06/19/2018 12/31/2018 [place] Flank pain 06/13/2018 12/31/2018 [place] Anxiety disorder, unspecified 06/13/2018 12/26/2018 [place] Epigastric pain 06/13/2018 12/25/2018 [facility] BACK PAIN Active 06/13/2018 [facility] Anxiety 06/08/2018 12/26/2018 [place] Epigastric abdominal pain 06/07/2018 12/25/2018 [facility] BREAST/CHEST PAIN Active 06/07/2018 [place] Chest pain 05/24/2018 05/27/2018 [facility] WEAKNESS Active 05/24/2018 [facility] Acute chest pain 05/18/2018 05/21/2018 [facility] Acute anxiety 05/18/2018 05/21/2018 [facility] ANXIETY Active 05/10/2018 [place] ROUTINE Active 03/14/2016 [facility] HEADACHE Active 01/31/2012 [facility] PYELONEPHRITIS, KIDNEY STONE, VOMITING Active 01/31/2012 [facility] section Active Problem 12/31/2018 [facility] Fever Active Problem 12/31/2018 [facility] Pain Active Problem 12/31/2018 [facility] Shortness of breath 12/26/2018 [facility] Allergy status to penicillin 12/26/2018 [facility] Left upper quadrant pain 12/25/2018 [facility] Diarrhea, unspecified 12/25/2018 [facility] Essential hypertension 12/25/2018 [facility] Iron deficiency anemia, unspecified 12/25/2018 [facility] Fever Active Problem 02/03/2012 [facility] Pain Active Problem 02/03/2012 [facility] ACUTE CHOLECYSTITIS Active [facility] CHOLECYSTITIS, UNSPECIFIED Active [facility] PYELONEPHRITIS NOS Active [facility] Medications Medication Details Route Status Patient Instructions Ordering Provider Order Date Source Acetaminophen 325 MG / Hydrocodone Bitartrate 5 MG Oral Tablet [[place] 5/325] 1 tab, Route: PO, Drug Form: TAB, Dosing Weight 50, kg, ONCE, STAT, Start date: 06/13/18 22:53:00 CDT, Stop date: 06/13/18 22:53:00 CDT Inactive 06/14/2018 [facility] Ondansetron 4 MG Disintegrating Tablet [Zofran] 4 mg=1 tab, PO, Q8H, PRN as needed for nausea/vomiting, # 12 tab, 0 Refill(s) No Longer Active 06/14/2018 [facility] ibuprofen 600 mg oral tablet 600 mg=1 tab, PO, Q6H, PRN Pain or Fever, Take with food, X 10 day, # 40 tab, 0 Refill(s) No Longer Active 06/14/2018 [facility] Cyclobenzaprine hydrochloride 10 MG Oral Tablet [Flexeril] 10 mg, PO, TID, PRN Muscle Spasm, X 10 day, # 30 tab, 0 Refill(s) No Longer Active 06/14/2018 [facility] tramadol hydrochloride 50 MG Oral Tablet [Ultram] 50 mg=1 tab, PO, Q6H, PRN pain, # 20 tab, 0 Refill(s) No Longer Active 06/14/2018 [facility] Ativan 0.5 mg, Route: PO, Drug form: TAB, ONCE, Dosing Weight 50, kg, Priority: STAT, Start date: 06/08/18 11:39:00 CDT, Stop date: 06/08/18 11:39:00 CDT Inactive 06/08/2018 [facility] tramadol hydrochloride 50 MG Oral Tablet 50 mg=1 tab, PO, Q6H, PRN Pain, X 5 day, # 15 tab, 0 Refill(s) No Longer Active 06/07/2018 [facility] Morphine 4 mg, Route: IM, ONCE, Dosing Weight 50.909, kg, Priority: STAT, Start date: 06/07/18 10:19:00 CDT, Stop date: 06/07/18 10:19:00 CDT Inactive 06/07/2018 [facility] Pepcid 40 mg, Route: IVP, ONCE, Dosing Weight 50.909, kg, Priority: STAT, Start date: 06/07/18 8:48:00 CDT, Stop date: 06/07/18 8:48:00 CDT Inactive 06/07/2018 [facility] NS (Bolus) IV 1,000 mL, 1,000 ml/hr, Infuse Over: 1 hr, Route: IV, ONCE, Priority: STAT, Dosing Weight 50.909 kg, Start date: 06/07/18 8:48:00 CDT, Stop date: 06/07/18 8:48:00 CDT Inactive 06/07/2018 [facility] Zofran ODT 4 mg, Route: PO, Drug form: TABDIS, ONCE, Dosing Weight 50.909, kg, Priority: STAT, Start date: 06/07/18 8:48:00 CDT, Stop date: 06/07/18 8:48:00 CDT Inactive 06/07/2018 [facility] GI cocktail 30 mL, Route: PO, Dosing Weight 50.909, kg, ONCE, STAT, Start date: 06/07/18 8:34:00 CDT, Stop date: 06/07/18 8:34:00 CDT Inactive 06/07/2018 [facility] Saline Flush 0.9% 10 mL, Route: IVP, Drug Form: INJ, Dosing Weight 50.909, kg, PRN, PRN Line Flush, Start date: 06/07/18 8:32:00 CDT, Duration: 30 day, Stop date: 07/07/18 8:31:00 CDTNotes: (Same as: BD Posiflush) Inactive 06/07/2018 [facility] Saline Flush 0.9% 10 mL, Route: IVP, Drug Form: INJ, Dosing Weight 51.42, kg, PRN, PRN Line Flush, Start date: 05/24/18 11:27:00 CDT, Duration: 30 day, Stop date: 06/23/18 11:26:00 CDTNotes: (Same as: BD Posiflush) Inactive 05/24/2018 [facility] Sodium Chloride 0.9% (Bolus) IV 1,000 mL, 1000 ml/hr, Infuse Over: 1 hr, Route: IV, 1,000, Drug form: INJ, ONCE, Priority: STAT, Dosing Weight 51.42 kg, Start date: 05/24/18 11:27:00 CDT, Stop date: 05/24/18 11:27:00 CDT Inactive 05/24/2018 [facility] Aspirin 324 mg, 4 tab, Route: PO, Drug form: [place], ONCE, Dosing Weight 51.42, kg, Priority: STAT, Start date: 05/24/18 11:27:00 CDT, Stop date: 05/24/18 11:27:00 CDTNotes: Take with food. Inactive 05/24/2018 [facility] Ativan 1 mg, 0.5 mL, Route: IVP, Drug form: INJ, ONCE, Dosing Weight 72.727, kg, Priority: STAT, Start date: 05/18/18 1:55:00 CDT, Stop date: 05/18/18 1:55:00 CDTNotes: (Same as: Ativan) Inactive 05/18/2018 [facility] Ativan 1 mg, 0.5 mL, Route: IVP, Drug form: INJ, ONCE, Dosing Weight 63.636, kg, Priority: STAT, Start date: 05/10/18 17:15:00 CDT, Stop date: 05/10/18 17:15:00 CDTNotes: (Same as: Ativan) Inactive 05/10/2018 [facility] ondansetron 4 mg, 2 mL, Route: IVP, Drug form: INJ, ONCE, PRN Nausea & Vomiting, Start date: 02/01/12 9:30:00 IVP No Longer Active [place] 02/01/2012 [facility] fentanyl 25 microgram, 0.5 mL, Route: IVP, Drug form: INJ, Q5Min, PRN Pain Score 4-6, Start date: 02/01/12 9:30:00, Duration: 4 doses or times, Stop date: Limited # of times IVP No Longer Active [place] 02/01/2012 [facility] acetaminophen-hydrocodone 325 mg-5 mg oral tablet 2 tab, Route: PO, Drug Form: TAB, Q4H, PRN Pain Score 4-6, Start date: 02/01/12 9:30:00, Duration: 30 day, Stop date: 03/02/12 9:29:00 PO No Longer Active [facility] 02/01/2012 [facility] naloxone 0.04 mg, 0.1 mL, Route: IVP, Drug form: INJ, Q2MIN, PRN Narcotic Reversal, Start date: 02/01/12 9:30:00, Duration: 8 doses or times, Stop date: Limited # of times IVP No Longer Active [facility] 02/01/2012 [facility] flumazenil 0.2 mg, 2 mL, Route: IVP, Drug form: INJ, PRN, PRN Benzodiazepine Reversal, Initial dose, Start date: 02/01/12 9:30:00, Duration: 30 day, Stop date: 03/02/12 9:29:00 IVP No Longer Active [facility] 02/01/2012 [facility] hydromorphone 0.5 mg, 0.5 mL, Route: IVP, Drug form: SOLN, Q5Min, PRN Pain Score 4-6, Start date: 02/01/12 9:30:00, Duration: 5 doses or times, Stop date: Limited # of times IVP No Longer Active [facility] 02/01/2012 [facility] meperidine 12.5 mg, 0.25 mL, Route: IVP, Drug form: INJ, Q30Min, PRN Other -See Comment, For shivering, Start date: 02/01/12 9:30:00, Duration: 2 doses or times, Stop date: Limited # of times IVP No Longer Active [facility] 02/01/2012 [facility] morphine Sulfate 2 mg, 1 mL, Route: IVP, Drug form: INJ, Q5Min, PRN Pain Score 4-6, Start date: 02/01/12 9:30:00, Duration: 8 doses or times, Stop date: Limited # of times IVP No Longer Active [facility] 02/01/2012 [facility] Lactated Ringers IV 1,000 mL 1,000 mL, Rate: 25 ml/hr, Infuse over: 40 hr, Route: IV, Dosing Weight 50.9 kg, Total Volume: 1,000, Start date: 02/01/12 7:45:00, Duration: 30 day, Stop date: 03/02/12 7:44:00 IV No Longer Active [place] 02/01/2012 [facility] potassium chloride 40 mEq, Route: PO, ONCE, Start date: 01/31/12 22:28:00, Stop date: 01/31/12 22:28:00 PO No Longer Active [facility] 02/01/2012 [facility] Flomax 0.4 mg, 1 cap, Route: PO, Drug form: CAP, ONCE, Start date: 01/31/12 22:00:00, Stop date: 01/31/12 22:00:00 PO No Longer Active [place] 02/01/2012 [facility] D5W 1/2NS + KCL 20mEq/L 1000ml (Premix) 1,000 mL 1,000 mL, Rate: 175 ml/hr, Infuse over: 5.7 hr, Route: IV, Dosing Weight 50.909 kg, Total Volume: 1,000, Start date: 01/31/12 21:28:00, Duration: 30 day, Stop date: 03/01/12 21:27:00 IV No Longer Active [place] 02/01/2012 [facility] Rocephin 1 g/ NS (NaCl 0.9%) 50 mL IV solution 1 gm, Route: IVPB, [id number], Start date: 01/31/12 21:00:00, Duration: 30 day, Stop date: 02/29/12 21:00:00 IVPB No Longer Active [facility] 02/01/2012 [facility] morphine Sulfate 4 mg, 2 mL, Route: IVP, Drug form: INJ, Q3H, PRN Pain Score 7-10, Start date: 01/31/12 20:57:00, Duration: 30 day, Stop date: 03/01/12 20:56:00 IVP No Longer Active [facility] 02/01/2012 [facility] ondansetron 4 mg, 2 mL, Route: IVP, Drug form: INJ, Q6H, PRN Nausea & Vomiting, Start date: 01/31/12 20:57:00, Duration: 30 day, Stop date: 03/01/12 20:56:00 IVP No Longer Active [facility] 02/01/2012 [facility] Saline Flush 0.9% 5 ml, Route: IVP, Drug Form: INJ, PRN, PRN Line Flush, Start date: 01/31/12 20:57:00, Duration: 30 day, Stop date: 03/01/12 20:56:00 IVP No Longer Active [facility] 02/01/2012 [facility] Sodium Chloride 0.9% IV 1,000 mL 1,000 mL, Rate: 125 ml/hr, Infuse over: 8 hr, Route: IV, Dosing Weight 50.909 kg, Total Volume: 1,000, Start date: 01/31/12 20:57:00, Duration: 30 day, Stop date: 03/01/12 20:56:00 IV No Longer Active [place] 02/01/2012 [facility] ferrous sulfate 325 mg oral enteric coated tablet 325 mg, 1 tab, PO, TID, Substitution Allowed PO Active 02/01/2012 [facility] Dilaudid 0.5 mg, Route: IV, ONCE, PRN Pain, Start date: 01/31/12 19:05:00, Stop date: 03/01/12 19:04:00 IV No Longer Active [place] 02/01/2012 [facility] gentamicin 100 mg, 2.5 mL, Route: IVPB, Drug form: INJ, [id number], pharmacy to assist with dosing. First dose now, Start date: 01/31/12 19:00:00, Duration: 30 day, Stop date: 03/01/12 7:00:00 IVPB No Longer Active [place] 02/01/2012 [facility] Rocephin 1 g/ NS (NaCl 0.9%) 50 mL IV solution 1 gm, Route: IVPB, Drug form: PDR/INJ, ONCE, Priority: STAT, Start date: 01/31/12 18:23:00, Stop date: 01/31/12 18:23:00 IVPB No Longer Active [facility] 01/31/2012 [facility] ondansetron 4 mg oral tablet, disintegrating 4 mg, 1 tab, Route: PO, Drug form: TABDIS, ONCE, Start date: 01/31/12 18:18:00, Stop date: 01/31/12 18:18:00 PO No Longer Active [place] 01/31/2012 [facility] hydromorphone 0.5 mg, Route: IVP, ONCE, Priority: STAT, Start date: 01/31/12 18:17:00, Stop date: 01/31/12 18:17:00 IVP No Longer Active [place] 01/31/2012 [facility] potassium chloride 20 mEq oral tablet, extended release 40 mEq, 2 tab, Route: PO, Drug form: ERTAB, ONCE, Priority: STAT, Start date: 01/31/12 17:23:00, Stop date: 01/31/12 17:23:00 PO No Longer Active [place] 01/31/2012 [facility] morphine Sulfate 4 mg, 2 mL, Route: IVP, Drug form: INJ, ONCE, Start date: 01/31/12 15:16:00, Stop date: 01/31/12 15:16:00 IVP No Longer Active [facility] 01/31/2012 [facility] Zofran 4 mg, 2 mL, Route: IVP, Drug form: INJ, ONCE, Start date: 01/31/12 15:16:00, Stop date: 01/31/12 15:16:00 IVP No Longer Active [facility] 01/31/2012 [facility] Sodium Chloride 0.9% (Bolus) IV 1,000 mL 1,000 mL, Rate: 1,000 ml/hr, Infuse over: 1 hr, Route: IV, Dosing Weight 50.9 kg, Total Volume: 1,000, Priority: STAT, Start date: 01/31/12 15:16:00, Duration: 1 doses or times, Stop date: 01/31/12 16:15:00, Bolus DoseBolus Dose IV No Longer Active [facility] 01/31/2012 [facility] Allergies, Adverse Reactions, Alerts Substance Category Reaction Severity Reaction type Status Date Reported Comments Source penicillins drug allergy Allergy Active [facility] penicillin Assertion Drug allergy Active [facility] Immunizations Immunization Date Given Site Status Last Updated Comments Source Results Order Name Results Value Reference Range Date Interpretation Comments Source Abdomen RUQ US Abdomen RUQ US Clinical Indication: - pain; Comparison: Computed tomography scan dated 06/13/2018. Gallbladder ultrasound dated 09/21/2018 TECHNIQUE: Grayscale and limited color sonographic evaluation of the right upper quadrant of the abdomen and gallbladder region was performed with standard technique. FINDINGS: LIVER: The visualized liver shows normal echogenicity. Liver measures 11.6 cm,. The limited visualized portal vein is grossly patent. BILE DUCTS: The intrahepatic and extrahepatic bile ducts are not dilated with the common bile duct measuring 5 mm. The distal common bile duct is not well seen. GALLBLADDER: There are no gallstones, wall pericholecystic fluid. Thickened gallbladder wall at 7 mm thickness. Multiple non-shadowing echogenic foci are seen along the gallbladder wall, probably slight PANCREAS: Largely obscured.. KIDNEY: The right kidney measures 11 x 4.7 x 4.6 cm. There is normal renal contour and morphology, with normal parenchymal echotexture. There is no hydronephrosis. AORTA AND INFERIOR VENA CAVA: Visualized portions appear unremarkable. ASCITES: There is no right upper quadrant abdominal ascites. IMPRESSION: 1. Probably echogenic sludge in the gallbladder with thickened wall. No definitive gallstone or pericholecystic fluid is seen. Nuclear medicine HIDA scan may be beneficial.. SL: [id number] 10/12/2018 - - Read by: Mike Lu MD Dictated Date/time: 10/13/18 01:03 Electronically Signed by: Mike Lu MD 10/13/18 01:12 FINAL REPORT [facility] Barium Swallow w Esophagus Function DX Barium Swallow w Esophagus Function DX Patient Name: BARRIE VERGARA : 1970; Age: 48 years y/o Female MR: [id number] Study: Barium Swallow w Esophagus Function DX 09/22/2018 9:59 AM CDT Ordering Physician: Mendel Shirley MD Comparison: None Clinical Indication: - dysphagia; Fluoroscopic time:2 minutes Dose: 15.01 mGy TECHNIQUE: Thin barium was utilized for recumbent prone oblique and LPO images. Thick barium was utilized for upright imaging of the esophagus and pharynx. Granola bar mixed with barium was given to evaluate motility with solids. FINDINGS: There is no delay in passage of the barium bolus from the pharynx into the esophagus. The cricopharyngeus relaxes normally. There is no evidence for cricopharyngeal bar or Zenker's diverticulum. Prone and LPO images of the esophagus reveal few tertiary nonpropulsive contractions at the distal esophagus but are otherwise unremarkable. Upright images with thick barium reveals no significant dysmotility. No mass lesions or strictures are visualized. No annular constricting lesion. No intraluminal mass. No hiatal hernia or reflux. Subsequently 2 separate swallows of a small piece of granola bar and barium were fluoroscopically followed through the length of the esophagus. There is no significant delay in passage of both solid boluses from the pharynx to the esophagus and subsequently into the stomach. Overhead image performed at the conclusion of the procedure reveals prompt passage of the barium from the stomach into the small bowel. IMPRESSION: 1. A few tertiary nonpropulsive contractions were noted at the distal esophagus in the LPO position; otherwise, unremarkable video esophagram. SL: [id number] 09/22/2018 - - Read by: Harvey Baig MD Dictated Date/time: 09/22/18 11:51 Electronically Signed by: Harvey Baig MD 09/22/18 11:54 FINAL REPORT [facility] Esophagus BA swallow function video DX Esophagus BA swallow function video DX Patient Name: BARRIE VERGARA : 1970; Age: 48 years Female MR: [id number] Study: Esophagus BA swallow function video DX Order Time: 09/21/2018 1:31 PM CDT Clinical Indication: Dysphagia - r/o cervical impingement, also a paratracheal vascular mass noted on CT, eval if impinging on esophagus. COMPARISON: None. REFERENCE AIR KERMA: 2.83 mGy FLUOROSCOPY TIME: 1 minute TECHNIQUE: Fluoroscopic assistance was provided for the speech pathologist for modified barium swallow examination. Varying consistencies of barium were administered po. FINDINGS: Thin consistency barium: No aspiration or any significant laryngeal penetration. [place] consistency barium: No aspiration or any significant laryngeal penetration. Honey consistency barium: No aspiration or any significant laryngeal penetration. Pudding coated barium: No aspiration or any significant laryngeal penetration. Barium with cracker preparation: No aspiration or any significant laryngeal penetration. IMPRESSION: 1. Normal modified swallow. 2. Please refer to the speech pathologist's note for further details. SL: [id number] 09/21/2018 - - Read by: Eliana Hawkins DO Dictated Date/time: 09/21/18 14:55 Electronically Signed by: Eliana Hawkins DO 09/21/18 16:27 FINAL REPORT [facility] Gallbladder scan HIDA wo meds NM Gallbladder scan HIDA wo meds NM Patient Name: BARRIE VERGARA : 1970; Age: 48 years y/o Female MR: [id number] Study: Gallbladder scan HIDA wo meds NM 09/21/2018 7:21 AM CDT Ordering Physician: Jorge L Laboy MD Clinical Indication: - abdominal pain; Comparison: Abdominopelvic CT 06/13/2018 TECHNIQUE: Hepatobiliary scan is performed using 6.4 mCi of Tc-99m Choletec up to 2 hours. FINDINGS: There is prompt hepatic uptake and excretion with progression of the radiotracer through a non dilated biliary tree and into small bowel. Gallbladder filling is first noted at 90 minutes past radiotracer injection and most overtly at 120 minutes. IMPRESSION: 1. Negative for acute obstructive cholecystitis or cystic duct obstruction. 2. Possible biliary dyskinesia or chronic cholecystitis, due to the delayed appearance of the gallbladder. SL: [id number] 09/21/2018 - - Read by: Jose Luis Oglesby MD Dictated Date/time: 09/21/18 14:26 Electronically Signed by: Jose Luis Oglesby MD 09/21/18 14:30 FINAL REPORT [facility] Neck soft tissue w contrast CT Neck soft tissue w contrast CT CT SOFT TISSUE NECK WITH IV CONTRAST. History: - throat pain with difficulty swallowing Comparison: CT soft tissue neck , CT chest 11/28/2010, CT chest 05/10/2018. Technique: Sequential axial CT images were obtained from the base of the brain to the superior mediastinum following administration of intravenous contrast. [address] imaging was performed with exposure control parameters to reduce radiation dose.CT Radiation Dose: SWX=111.09 mGy-cm Findings: Supra and infrahyoid neck: Effacement of the left vallecula and piriform sinus are noted, nonspecific and may be related to mucosal opposition. A couple right palatine punctate tonsilliths are noted. Note is made of a bilateral retropharyngeal course of the carotid arteries. The aerodigestive tract appears otherwise unremarkable with no evidence of mass, edema or mass effect. The airways patent. A 2.1 x 1.6 cm serpiginous density without overt evidence enhancement is noted along the right paratracheal region at the level of the thoracic inlet (series 2 image 51). 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 When compared to CT dated 11/28/2010 the mass is decreased in size. Correlate with treatment history. Soft tissues:Unremarkable.. Lymph nodes:No pathologic appearing lymph nodes are identified.. Major salivary glands: The parotid and submandibular glands appear unremarkable. Paranasal sinuses: A 15 mm focal opacification within the right maxillary sinus may represent a mucous retention cyst. Focal opacification along the left posterior maxillary sinus is noted with slightly hyperdense contents that could represent inspissated mucus. Other: The visualized lung apices demonstrate no consolidation. The thyroid gland compare is a couple subcentimeter nodules, nonspecific. Mild multilevel mid to lower cervical spondylosis. Impression: No acute aerodigestive tract findings. Effacement of the left vallecula and piriform sinus are noted, nonspecific and may represent mucosal opposition. A serpiginous density without overt evidence enhancement is noted along the right paratracheal region at the level of the thoracic inlet. 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 When compared to CT dated 11/28/2010 the mass is decreased in size. Correlate with treatment history. SL: [id number] 08/02/2018 - - Read by: Yrn Cobian MD Dictated Date/time: 08/03/18 01:33 Electronically Signed by: Yrn Cobian MD 08/03/18 01:53 FINAL REPORT [facility] Neck soft tissue DX Neck soft tissue DX EXAM: XR NECK SOFT TISSUES 2 VIEWS DATE: 06/30/2018 at 0206 hours INDICATION: dysphagia COMPARISON: None. TECHNIQUE: AP and lateral radiographs of the neck soft tissues UT SECTION: ER FINDINGS: Prevertebral soft tissue contours are within normal limits. There is no tracheal narrowing or deviation. No radiopaque foreign body or abnormal calcification is identified. Mild to moderate multilevel degenerative changes are seen within the cervical spine. Vertebral body alignment is within normal limits. Small osteophytes are seen anteriorly at C4, C5, and C6. There is narrowing of the intervertebral disc spaces at C4-5, C5-6 and C6-7 which is associated with small posterior osteophyte complexes at C5-6 and C6-7. Mild facet arthropathy and uncovertebral osteoarthritis is seen at C5-C6 and C6-C7. IMPRESSION: 1. Normal radiographic appearance of the soft tissues of the neck. 2. Mild to moderate multilevel degenerative changes of the cervical spine. 06/30/2018 - - This report was dictated by a Cathodic Protection Technician/Fellow. I have personally reviewed the images as well as the Resident's interpretation and agree with the findings. Read by: Ad Stevens MD Resident: Ad Stevens MD Dictated Date/time: 06/30/18 03:57 Electronically Signed by: Letty Arreola MD 06/30/18 05:14 FINAL REPORT [facility] CHEM PANEL Lipase Lvl 408 unit/L 73 - 393 06/14/2018 [facility] CHEM PANEL A/G Ratio 1.1 0.7 - 1.6 06/14/2018 [facility] CHEM PANEL AGAP 14.7 meq/L 10.0 - 20.0 06/14/2018 [facility] CHEM PANEL Globulin 3.5 g/dL 2.7 - 4.2 06/14/2018 [facility] CHEM PANEL B/C Ratio 23 6 - 25 06/14/2018 [facility] CHEM PANEL eGFR 104 mL/min/1.73m2 06/14/2018 Result Comment: The eGFR is calculated using the [...] from the National Kidney Disease Education Program (NKDEP) which additionally recommends that when the eGFR is used in patients with extremes of body mass index for purposes of drug dosing, the eGFR should be multiplied by the estimated BMI. [facility] CHEM PANEL Creatinine Lvl 0.71 mg/dL 0.50 - 1.40 06/14/2018 [facility] CHEM PANEL BUN 16 mg/dL 7 - 22 06/14/2018 [facility] CHEM PANEL Glucose Lvl 95 mg/dL 70 - 99 06/14/2018 [facility] CHEM PANEL Sodium Lvl 142 meq/L 135 - 145 06/14/2018 [facility] CHEM PANEL Chloride Lvl 106 meq/L 95 - 109 06/14/2018 [facility] CHEM PANEL Potassium Lvl 3.7 meq/L 3.5 - 5.1 06/14/2018 [facility] CHEM PANEL Calcium Lvl 8.7 mg/dL 8.5 - 10.5 06/14/2018 [facility] CHEM PANEL CO2 25 meq/L 24 - 32 06/14/2018 [facility] CHEM PANEL AST 14 unit/L 0 - 37 06/14/2018 [facility] CHEM PANEL Total Protein 7.4 g/dL 6.4 - 8.4 06/14/2018 [facility] CHEM PANEL ALT 17 unit/L 0 - 65 06/14/2018 [facility] CHEM PANEL Albumin Lvl 3.9 g/dL 3.5 - 5.0 06/14/2018 [facility] CHEM PANEL Alk Phos 53 unit/L 39 - 136 06/14/2018 [facility] CHEM PANEL Bili Total 0.2 mg/dL 0.2 - 1.3 06/14/2018 [facility] ENDOCRINOLOGY S Preg Negative *NA* (06/13/18 7:06 PM) Negative 06/14/2018 [facility] HEMATOLOGY WBC 5.7 K/CMM 3.7 - 10.4 06/14/2018 [facility] RDW 15.1 % 11.5 - 14.5 06/14/2018 [facility] MCH 24.6 pg 27.0 - 31.0 06/14/2018 [facility] MCHC 32.0 g/dL 32.0 - 36.0 06/14/2018 [facility] MCV 76.9 fL 80.0 - 98.0 06/14/2018 [facility] Hgb 10.3 g/dL 12.0 - 16.0 06/14/2018 [facility] RBC 4.19 M/CMM 4.20 - 5.40 06/14/2018 [facility] Hct 32.2 % 36.0 - 48.0 06/14/2018 [facility] Platelet 260 K/CMM 133 - 450 06/14/2018 [facility] MPV 8.9 fL 7.4 - 10.4 06/14/2018 [facility] Lymphocytes # 1.4 K/CMM 1.0 - 5.5 06/14/2018 [facility] Monocytes # 0.7 K/CMM 0.0 - 0.8 06/14/2018 [facility] Eosinophils # 0.1 K/CMM 0.0 - 0.5 06/14/2018 [facility] Microcyte 1+ *ABN* (06/13/18 7:06 PM) None Seen 06/14/2018 [facility] Monocytes 12.0 % 2.0 - 12.0 06/14/2018 [facility] HEMATOLOGY Eosinophils 1.4 % 0.0 - 4.0 06/14/2018 [facility] HEMATOLOGY Segs 61.3 % 45.0 - 75.0 06/14/2018 [facility] HEMATOLOGY Lymphocytes 24.8 % 20.0 - 40.0 06/14/2018 [facility] HEMATOLOGY Basophils 0.5 % 0.0 - 1.0 06/14/2018 [facility] HEMATOLOGY Neutrophils # 3.5 K/CMM 1.5 - 8.1 06/14/2018 [facility] URINE AND STOOL UA Turbidity Slight *ABN* (06/13/18 6:43 PM) Clear 06/13/2018 [facility] URINE AND STOOL UA pH 6.0 5.0 - 8.0 06/13/2018 [facility] URINE AND STOOL UA Spec Grav 1.023 <=1.030 06/13/2018 [facility] URINE AND STOOL UA Bili Negative *NA* (06/13/18 6:43 PM) Negative 06/13/2018 [facility] URINE AND STOOL UA Ketones Negative mg/dL Negative mg/dL 06/13/2018 [facility] URINE AND STOOL UA Protein Negative mg/dL Negative mg/dL 06/13/2018 [facility] URINE AND STOOL UA Blood Negative (06/13/18 6:43 PM) Negative 06/13/2018 [facility] URINE AND STOOL UA Glucose Negative mg/dL Negative mg/dL 06/13/2018 [facility] URINE AND STOOL UA WBC 2 /HPF 0 - 5 06/13/2018 [facility] URINE AND STOOL UA Leuk Est Negative (06/13/18 6:43 PM) Negative 06/13/2018 [facility] URINE AND STOOL UA Nitrite Negative (06/13/18 6:43 PM) Negative 06/13/2018 [facility] URINE AND STOOL UA Sq Epi Many /LPF Few /LPF 06/13/2018 [facility] URINE AND STOOL UA RBC 1 /HPF 0 - 2 06/13/2018 [facility] URINE AND STOOL UA Color Ltyellow 06/13/2018 [facility] URINE AND STOOL UA Mucus Few /LPF None Seen /LPF 06/13/2018 [facility] URINE AND STOOL UA Urobilinogen <=1.0 mg/dL 0.1 - 1.0 06/13/2018 [facility] Abdomen/Pelvis wo IV contrast CT Abdomen/Pelvis wo IV contrast CT EXAM: CT ABDOMEN AND PELVIS WITHOUT CONTRAST DATE: 06/13/2018 6:35 PM CDT INDICATION: Left flank pain. COMPARISON: 01/31/2012. TECHNIQUE: Helical CT imaging of the abdomen and pelvis performed from lung bases through the lesser trochanters without intravenous contrast. Axial, sagittal, and coronal multiplanar reconstructions were provided. IV contrast: None. CT Radiation Dose: MOD=332.64 mGy-cm FINDINGS: Evaluation of the solid organs is limited without intravenous contrast. LOWER CHEST: The lung bases are clear of focal consolidation, pleural effusions, and pneumothorax. The heart is unremarkable without evidence for a pericardial effusion. LIVER: 10 mm hypodense lesion within the dome of the liver. GALLBLADDER/BILIARY: Questionable gallbladder wall thickening. PANCREAS: Unremarkable SPLEEN: Unremarkable ADRENALS: Unremarkable KIDNEYS AND URETERS: Punctate nonobstructing calyceal stone within the inferior pole of the left kidney. No obstructing calculi or hydronephrosis is identified. BLADDER: Unremarkable STOMACH: Unremarkable. BOWEL: The small bowel is normal in course and caliber without focal wall thickening or evidence for obstruction. The colon is unremarkable. APPENDIX: The appendix is visualized and unremarkable. PELVIS: No pelvic masses are identified. PERITONEUM: No ascites or free air. LYMPH NODES: Unremarkable. VASCULAR: Mild atherosclerotic calcification of the aorta. OSSEOUS STRUCTURES: No acute osseous abnormality. SOFT TISSUES: Fat-containing umbilical hernia. IMPRESSION: 1. Nonobstructing calyceal stone within the inferior pole of the left kidney. No obstructing calculi or hydronephrosis. 2. Questionable gallbladder wall thickening. Right upper quadrant ultrasound as clinically indicated. 3. Incompletely characterized 10 mm hypodense lesion within the dome of the liver. 4. Fat-containing umbilical hernia. SL: [id number] 06/13/2018 - - Read by: Unruly De Leon MD Dictated Date/time: 06/13/18 20:27 Electronically Signed by: Unruly De Leon MD 06/13/18 20:32 FINAL REPORT [facility] CARDIAC ENZYMES Total CK 89 unit/L 12 - 191 06/08/2018 [facility] CARDIAC ENZYMES CK MB null 0.5 - 3.6 06/08/2018 [facility] CARDIAC ENZYMES Troponin-I null 0.00 - 0.40 06/08/2018 [facility] CARDIAC ENZYMES CK MB Index null 0.0 - 2.5 06/08/2018 [facility] CHEM PANEL eGFR 106 mL/min/1.73m2 06/08/2018 Result Comment: The eGFR is calculated using the [...] from the National Kidney Disease Education Program (NKDEP) which additionally recommends that when the eGFR is used in patients with extremes of body mass index for purposes of drug dosing, the eGFR should be multiplied by the estimated BMI. [facility] CHEM PANEL Potassium Lvl 3.5 meq/L 3.5 - 5.1 06/08/2018 [facility] CHEM PANEL Chloride Lvl 105 meq/L 95 - 109 06/08/2018 [facility] CHEM PANEL Globulin 3.4 g/dL 2.7 - 4.2 06/08/2018 [facility] CHEM PANEL A/G Ratio 1.1 0.7 - 1.6 06/08/2018 [facility] CHEM PANEL Bili Total 0.6 mg/dL 0.2 - 1.3 06/08/2018 [facility] CHEM PANEL B/C Ratio 18 6 - 25 06/08/2018 [facility] CHEM PANEL Albumin Lvl 3.8 g/dL 3.5 - 5.0 06/08/2018 [facility] CHEM PANEL ALT 21 unit/L 0 - 65 06/08/2018 [facility] CHEM PANEL AST 18 unit/L 0 - 37 06/08/2018 [facility] CHEM PANEL Total Protein 7.2 g/dL 6.4 - 8.4 06/08/2018 [facility] CHEM PANEL Alk Phos 57 unit/L 39 - 136 06/08/2018 [facility] CHEM PANEL AGAP 15.5 meq/L 10.0 - 20.0 06/08/2018 [facility] CHEM PANEL CO2 25 meq/L 24 - 32 06/08/2018 [facility] CHEM PANEL Calcium Lvl 8.6 mg/dL 8.5 - 10.5 06/08/2018 [facility] CHEM PANEL Creatinine Lvl 0.68 mg/dL 0.50 - 1.40 06/08/2018 [facility] CHEM PANEL Sodium Lvl 142 meq/L 135 - 145 06/08/2018 [facility] CHEM PANEL BUN 12 mg/dL 7 - 22 06/08/2018 [facility] CHEM PANEL Glucose Lvl 83 mg/dL 70 - 99 06/08/2018 [facility] HEMATOLOGY Platelet 234 K/CMM 133 - 450 06/08/2018 [facility] MPV 8.8 fL 7.4 - 10.4 06/08/2018 [facility] HEMATOLOGY RDW 15.2 % 11.5 - 14.5 06/08/2018 [facility] MCHC 32.4 g/dL 32.0 - 36.0 06/08/2018 [facility] MCH 25.0 pg 27.0 - 31.0 06/08/2018 [facility] MCV 77.1 fL 80.0 - 98.0 06/08/2018 [facility] Hct 32.0 % 36.0 - 48.0 06/08/2018 [facility] RBC 4.15 M/CMM 4.20 - 5.40 06/08/2018 [facility] WBC 6.8 K/CMM 3.7 - 10.4 06/08/2018 [facility] Hgb 10.4 g/dL 12.0 - 16.0 06/08/2018 [facility] Eosinophils # 0.1 K/CMM 0.0 - 0.5 06/08/2018 [facility] Microcyte 1+ *ABN* (06/08/18 11:03 AM) None Seen 06/08/2018 [facility] Monocytes 6.7 % 2.0 - 12.0 06/08/2018 [facility] Eosinophils 1.7 % 0.0 - 4.0 06/08/2018 [facility] Basophils 0.6 % 0.0 - 1.0 06/08/2018 [facility] Neutrophils # 5.2 K/CMM 1.5 - 8.1 06/08/2018 [facility] HEMATOLOGY Lymphocytes # 1.0 K/CMM 1.0 - 5.5 06/08/2018 [facility] Monocytes # 0.5 K/CMM 0.0 - 0.8 06/08/2018 [facility] Lymphocytes 15.0 % 20.0 - 40.0 06/08/2018 [facility] HEMATOLOGY Segs 76.0 % 45.0 - 75.0 06/08/2018 [facility] CARDIAC ENZYMES Troponin-I null 0.00 - 0.40 06/07/2018 [facility] CHEM PANEL AST 24 unit/L 0 - 37 06/07/2018 [facility] CHEM PANEL Albumin Lvl 4.1 g/dL 3.5 - 5.0 06/07/2018 [facility] CHEM PANEL ALT 23 unit/L 0 - 65 06/07/2018 [facility] CHEM PANEL Total Protein 8.0 g/dL 6.4 - 8.4 06/07/2018 [facility] CHEM PANEL Bili Direct 0.1 mg/dL 0.0 - 0.3 06/07/2018 [facility] CHEM PANEL Alk Phos 64 unit/L 39 - 136 06/07/2018 [facility] CHEM PANEL Bili Total 0.6 mg/dL 0.2 - 1.3 06/07/2018 [facility] CHEM PANEL Globulin 3.9 g/dL 2.7 - 4.2 06/07/2018 [facility] CHEM PANEL Bili Indirect 0.5 mg/dL 0.0 - 1.0 06/07/2018 [facility] CHEM PANEL A/G Ratio 1.1 0.7 - 1.6 06/07/2018 [facility] CHEM PANEL Lipase Lvl 310 unit/L 73 - 393 06/07/2018 [facility] ELECTROLYTES AGAP 16.2 meq/L 10.0 - 20.0 06/07/2018 [facility] ELECTROLYTES eGFR 107 mL/min/1.73m2 06/07/2018 Result Comment: The eGFR is calculated using the [...] from the National Kidney Disease Education Program (NKDEP) which additionally recommends that when the eGFR is used in patients with extremes of body mass index for purposes of drug dosing, the eGFR should be multiplied by the estimated BMI. [facility] ELECTROLYTES Calcium Lvl 8.8 mg/dL 8.5 - 10.5 06/07/2018 [facility] ELECTROLYTES BUN 12 mg/dL 7 - 22 06/07/2018 [facility] ELECTROLYTES Creatinine Lvl 0.67 mg/dL 0.50 - 1.40 06/07/2018 [facility] ELECTROLYTES Chloride Lvl 102 meq/L 95 - 109 06/07/2018 [facility] ELECTROLYTES Potassium Lvl 3.2 meq/L 3.5 - 5.1 06/07/2018 [facility] ELECTROLYTES CO2 26 meq/L 24 - 32 06/07/2018 [facility] ELECTROLYTES Sodium Lvl 141 meq/L 135 - 145 06/07/2018 [facility] ELECTROLYTES Glucose Lvl 85 mg/dL 70 - 99 06/07/2018 [facility] HEMATOLOGY MPV 9.3 fL 7.4 - 10.4 06/07/2018 [facility] HEMATOLOGY Platelet 257 K/CMM 133 - 450 06/07/2018 [facility] Hgb 11.5 g/dL 12.0 - 16.0 06/07/2018 [facility] RBC 4.57 M/CMM 4.20 - 5.40 06/07/2018 [facility] WBC 5.6 K/CMM 3.7 - 10.4 06/07/2018 [facility] MCH 25.2 pg 27.0 - 31.0 06/07/2018 [facility] MCV 77.1 fL 80.0 - 98.0 06/07/2018 [facility] Hct 35.2 % 36.0 - 48.0 06/07/2018 [facility] RDW 15.0 % 11.5 - 14.5 06/07/2018 [facility] MCHC 32.7 g/dL 32.0 - 36.0 06/07/2018 [facility] Lymphocytes 35.3 % 20.0 - 40.0 06/07/2018 [facility] Segs 51.9 % 45.0 - 75.0 06/07/2018 [facility] HEMATOLOGY Basophils 0.4 % 0.0 - 1.0 06/07/2018 [facility] HEMATOLOGY Eosinophils 2.6 % 0.0 - 4.0 06/07/2018 [facility] HEMATOLOGY Monocytes 9.8 % 2.0 - 12.0 06/07/2018 [facility] HEMATOLOGY Eosinophils # 0.1 K/CMM 0.0 - 0.5 06/07/2018 [facility] HEMATOLOGY Monocytes # 0.5 K/CMM 0.0 - 0.8 06/07/2018 [facility] HEMATOLOGY Neutrophils # 2.9 K/CMM 1.5 - 8.1 06/07/2018 [facility] Lymphocytes # 2.0 K/CMM 1.0 - 5.5 06/07/2018 [facility] HEMATOLOGY Microcyte 1+ *ABN* (06/07/18 9:10 AM) None Seen 06/07/2018 [facility] URINE AND STOOL UA Urobilinogen <=1.0 mg/dL 0.1 - 1.0 06/07/2018 [facility] URINE AND STOOL UA RBC 2 /HPF 0 - 2 06/07/2018 [facility] URINE AND STOOL UA Nitrite Negative (06/07/18 9:10 AM) Negative 06/07/2018 [facility] URINE AND STOOL UA Leuk Est Negative (06/07/18 9:10 AM) Negative 06/07/2018 [facility] URINE AND STOOL UA Bacteria Moderate /HPF None Seen /HPF 06/07/2018 [facility] URINE AND STOOL UA Mucus Many /LPF None Seen /LPF 06/07/2018 [facility] URINE AND STOOL UA Glucose Negative mg/dL Negative mg/dL 06/07/2018 [facility] URINE AND STOOL UA Ketones Negative mg/dL Negative mg/dL 06/07/2018 [facility] URINE AND STOOL UA Sq Epi Moderate /LPF Few /LPF 06/07/2018 [facility] URINE AND STOOL UA WBC 5 /HPF 0 - 5 06/07/2018 [facility] URINE AND STOOL UA Bili Negative *NA* (06/07/18 9:10 AM) Negative 06/07/2018 [facility] URINE AND STOOL UA Blood Small *ABN* (06/07/18 9:10 AM) Negative 06/07/2018 [facility] URINE AND STOOL UA Protein Negative mg/dL Negative mg/dL 06/07/2018 [facility] URINE AND STOOL UA Spec Grav 1.021 <=1.030 06/07/2018 [facility] URINE AND STOOL UA pH 5.0 5.0 - 8.0 06/07/2018 [facility] URINE AND STOOL UA Color Yellow *NA* (06/07/18 9:10 AM) Yellow 06/07/2018 [facility] URINE AND STOOL UA Turbidity Clear (06/07/18 9:10 AM) Clear 06/07/2018 [facility] URINE CHEM U Preg Negative (06/07/18 9:10 AM) Negative 06/07/2018 [facility] URINE AND STOOL UA Urobilinogen <=1.0 mg/dL 0.1 - 1.0 05/24/2018 [facility] URINE AND STOOL UA Color Ltyellow 05/24/2018 [facility] URINE AND STOOL UA RBC 3 /HPF 0 - 2 05/24/2018 [facility] URINE AND STOOL UA Bacteria Occasional /HPF None Seen /HPF 05/24/2018 [facility] URINE AND STOOL UA WBC 1 /HPF 0 - 5 05/24/2018 [facility] URINE AND STOOL UA Sq Epi Many /LPF Few /LPF 05/24/2018 [facility] URINE AND STOOL UA Leuk Est Negative (05/24/18 11:53 AM) Negative 05/24/2018 [facility] URINE AND STOOL UA Mucus Few /LPF None Seen /LPF 05/24/2018 [facility] URINE AND STOOL UA pH 7.0 5.0 - 8.0 05/24/2018 [facility] URINE AND STOOL UA Protein Negative mg/dL Negative mg/dL 05/24/2018 [facility] URINE AND STOOL UA Turbidity Slight *ABN* (05/24/18 11:53 AM) Clear 05/24/2018 [facility] URINE AND STOOL UA Glucose Negative mg/dL Negative mg/dL 05/24/2018 [facility] URINE AND STOOL UA Spec Grav 1.011 <=1.030 05/24/2018 [facility] URINE AND STOOL UA Nitrite Negative (05/24/18 11:53 AM) Negative 05/24/2018 [facility] URINE AND STOOL UA Bili Negative *NA* (05/24/18 11:53 AM) Negative 05/24/2018 [facility] URINE AND STOOL UA Blood Moderate *ABN* (05/24/18 11:53 AM) Negative 05/24/2018 [facility] URINE AND STOOL UA Ketones Negative mg/dL Negative mg/dL 05/24/2018 [facility] CARDIAC ENZYMES Total CK 119 unit/L 12 - 191 05/24/2018 [facility] CARDIAC ENZYMES CK MB null 0.5 - 3.6 05/24/2018 [facility] CARDIAC ENZYMES BNP 7 pg/mL <=100 pg/mL 05/24/2018 [facility] CARDIAC ENZYMES Troponin-I null 0.00 - 0.40 05/24/2018 [facility] CARDIAC ENZYMES CK MB Index null 0.0 - 2.5 05/24/2018 [facility] CHEM PANEL eGFR 105 mL/min/1.73m2 05/24/2018 Result Comment: The eGFR is calculated using the [...] from the National Kidney Disease Education Program (NKDEP) which additionally recommends that when the eGFR is used in patients with extremes of body mass index for purposes of drug dosing, the eGFR should be multiplied by the estimated BMI. [facility] CHEM PANEL A/G Ratio 1.2 0.7 - 1.6 05/24/2018 [facility] CHEM PANEL AGAP 11.5 meq/L 10.0 - 20.0 05/24/2018 [facility] CHEM PANEL Globulin 3.5 g/dL 2.7 - 4.2 05/24/2018 [facility] CHEM PANEL B/C Ratio 11 6 - 25 05/24/2018 [facility] CHEM PANEL Bili Total 0.5 mg/dL 0.2 - 1.3 05/24/2018 [facility] CHEM PANEL ALT 24 unit/L 0 - 65 05/24/2018 [facility] CHEM PANEL Alk Phos 62 unit/L 39 - 136 05/24/2018 [facility] CHEM PANEL AST 23 unit/L 0 - 37 05/24/2018 [facility] CHEM PANEL Total Protein 7.6 g/dL 6.4 - 8.4 05/24/2018 [facility] CHEM PANEL Albumin Lvl 4.1 g/dL 3.5 - 5.0 05/24/2018 [facility] CHEM PANEL Calcium Lvl 9.1 mg/dL 8.5 - 10.5 05/24/2018 [facility] CHEM PANEL Potassium Lvl 3.5 meq/L 3.5 - 5.1 05/24/2018 [facility] CHEM PANEL CO2 27 meq/L 24 - 32 05/24/2018 [facility] CHEM PANEL Chloride Lvl 104 meq/L 95 - 109 05/24/2018 [facility] CHEM PANEL Sodium Lvl 139 meq/L 135 - 145 05/24/2018 [facility] CHEM PANEL Creatinine Lvl 0.70 mg/dL 0.50 - 1.40 05/24/2018 [facility] CHEM PANEL BUN 8 mg/dL 7 - 22 05/24/2018 [facility] CHEM PANEL Glucose Lvl 86 mg/dL 70 - 99 05/24/2018 [facility] HEMATOLOGY Platelet 282 K/CMM 133 - 450 05/24/2018 [facility] MCHC 32.5 g/dL 32.0 - 36.0 05/24/2018 [facility] RDW 15.1 % 11.5 - 14.5 05/24/2018 [facility] MPV 9.0 fL 7.4 - 10.4 05/24/2018 [facility] WBC 5.0 K/CMM 3.7 - 10.4 05/24/2018 [facility] Hct 34.0 % 36.0 - 48.0 05/24/2018 [facility] MCV 78.1 fL 80.0 - 98.0 05/24/2018 [facility] Hgb 11.1 g/dL 12.0 - 16.0 05/24/2018 [facility] RBC 4.36 M/CMM 4.20 - 5.40 05/24/2018 [facility] MCH 25.4 pg 27.0 - 31.0 05/24/2018 [facility] Monocytes # 0.5 K/CMM 0.0 - 0.8 05/24/2018 [facility] Microcyte 1+ *ABN* (05/24/18 11:51 AM) None Seen 05/24/2018 [facility] Lymphocytes 24.4 % 20.0 - 40.0 05/24/2018 [facility] Eosinophils 0.7 % 0.0 - 4.0 05/24/2018 [facility] Monocytes 10.2 % 2.0 - 12.0 05/24/2018 [facility] Segs 64.1 % 45.0 - 75.0 05/24/2018 [facility] Lymphocytes # 1.2 K/CMM 1.0 - 5.5 05/24/2018 [facility] Segs-Bands # 3.2 K/CMM 1.5 - 8.1 05/24/2018 [facility] Basophils 0.6 % 0.0 - 1.0 05/24/2018 [facility] Chest 2 views DX Chest 2 views DX PROCEDURE: CHEST TWO VIEW INDICATION: Chest pain COMPARISON: 05/10/2018 FINDINGS: Both lungs are clear. No infiltrate or pleural fluid. The heart and mediastinal contours are unremarkable. No acute bony pathology. IMPRESSION: No acute abnormality SL: [id number] 05/24/2018 - - Read by: Aníbal Elkins MD Dictated Date/time: 05/24/18 11:53 Electronically Signed by: Aníbal Elkins MD 05/24/18 11:53 FINAL REPORT [facility] CHEM PANEL eGFR 107 mL/min/1.73m2 05/18/2018 Result Comment: The eGFR is calculated using the [...] from the National Kidney Disease Education Program (NKDEP) which additionally recommends that when the eGFR is used in patients with extremes of body mass index for purposes of drug dosing, the eGFR should be multiplied by the estimated BMI. [facility] CHEM PANEL AGAP 13.6 meq/L 10.0 - 20.0 05/18/2018 [facility] CHEM PANEL Bili Total 0.3 mg/dL 0.2 - 1.3 05/18/2018 [facility] CHEM PANEL Alk Phos 62 unit/L 39 - 136 05/18/2018 [facility] CHEM PANEL A/G Ratio 1.1 0.7 - 1.6 05/18/2018 [facility] CHEM PANEL Globulin 3.6 g/dL 2.7 - 4.2 05/18/2018 [facility] CHEM PANEL B/C Ratio 22 6 - 25 05/18/2018 [facility] CHEM PANEL ALT 19 unit/L 0 - 65 05/18/2018 [facility] CHEM PANEL Albumin Lvl 3.8 g/dL 3.5 - 5.0 05/18/2018 [facility] CHEM PANEL Total Protein 7.4 g/dL 6.4 - 8.4 05/18/2018 [facility] CHEM PANEL Calcium Lvl 8.6 mg/dL 8.5 - 10.5 05/18/2018 [facility] CHEM PANEL AST 15 unit/L 0 - 37 05/18/2018 [facility] CHEM PANEL Chloride Lvl 110 meq/L 95 - 109 05/18/2018 [facility] CHEM PANEL CO2 23 meq/L 24 - 32 05/18/2018 [facility] CHEM PANEL Sodium Lvl 143 meq/L 135 - 145 05/18/2018 [facility] CHEM PANEL Potassium Lvl 3.6 meq/L 3.5 - 5.1 05/18/2018 [facility] CHEM PANEL Glucose Lvl 110 mg/dL 70 - 99 05/18/2018 [facility] CHEM PANEL BUN 15 mg/dL 7 - 22 05/18/2018 [facility] CHEM PANEL Creatinine Lvl 0.67 mg/dL 0.50 - 1.40 05/18/2018 [facility] URINE AND STOOL UA Glucose Negative (05/18/18 1:34 AM) Negative 05/18/2018 [facility] URINE AND STOOL UA pH 6.5 5.0 - 8.0 05/18/2018 [facility] URINE AND STOOL UA Ketones Negative *NA* (05/18/18 1:34 AM) Negative 05/18/2018 [facility] URINE AND STOOL UA Protein Negative (05/18/18 1:34 AM) Negative 05/18/2018 [facility] URINE AND STOOL UA Leuk Est Negative (05/18/18 1:34 AM) Negative 05/18/2018 [facility] URINE AND STOOL UA Blood Trace *ABN* (05/18/18 1:34 AM) Negative 05/18/2018 [facility] URINE AND STOOL UA Bili Negative *NA* (05/18/18 1:34 AM) Negative 05/18/2018 [facility] URINE AND STOOL UA Nitrite Negative (05/18/18 1:34 AM) Negative 05/18/2018 [facility] URINE AND STOOL UA Urobilinogen 0.2 EU/dL 0.1 - 1.0 05/18/2018 [facility] URINE AND STOOL UA Color Yellow *NA* (05/18/18 1:34 AM) Yellow 05/18/2018 [facility] URINE AND STOOL UA Turbidity Clear (05/18/18 1:34 AM) Clear 05/18/2018 [facility] URINE AND STOOL UA Spec Grav 1.010 <=1.030 05/18/2018 [facility] URINE AND STOOL UA Sq Epi Few /LPF Few /LPF 05/18/2018 [facility] URINE AND STOOL UA WBC null 0 - 5 05/18/2018 [facility] URINE AND STOOL UA RBC 1 /HPF 0 - 2 05/18/2018 [facility] URINE AND STOOL UA Bacteria Occasional /HPF None Seen /HPF 05/18/2018 [facility] CARDIAC ENZYMES Troponin-I null 0.00 - 0.40 05/18/2018 [facility] CARDIAC ENZYMES Total CK 87 unit/L 12 - 191 05/18/2018 [facility] CARDIAC ENZYMES CK MB null 0.5 - 3.6 05/18/2018 [facility] CARDIAC ENZYMES CK MB Index null 0.0 - 2.5 05/18/2018 [facility] CHEM PANEL Lipase Lvl 315 unit/L 73 - 393 05/18/2018 [facility] ENDOCRINOLOGY S Preg Negative *NA* (05/18/18 1:33 AM) Negative 05/18/2018 [facility] Platelet 277 K/CMM 133 - 450 05/18/2018 [facility] MPV 9.2 fL 7.4 - 10.4 05/18/2018 [facility] RDW 14.8 % 11.5 - 14.5 05/18/2018 [facility] WBC 7.8 K/CMM 3.7 - 10.4 05/18/2018 [facility] RBC 4.24 M/CMM 4.20 - 5.40 05/18/2018 [facility] MCHC 32.7 g/dL 32.0 - 36.0 05/18/2018 [facility] MCH 25.8 pg 27.0 - 31.0 05/18/2018 [facility] MCV 78.7 fL 80.0 - 98.0 05/18/2018 [facility] Hct 33.4 % 36.0 - 48.0 05/18/2018 [facility] Hgb 10.9 g/dL 12.0 - 16.0 05/18/2018 [facility] PT 13.8 s 12.0 - 14.7 05/18/2018 [facility] INR 1.06 0.85 - 1.17 05/18/2018 [facility] PTT 30.7 s 22.9 - 35.8 05/18/2018 [facility] Microcyte 1+ *ABN* (05/18/18 1:33 AM) None Seen 05/18/2018 [facility] HEMATOLOGY Basophils 0.4 % 0.0 - 1.0 05/18/2018 [facility] HEMATOLOGY Eosinophils 0.9 % 0.0 - 4.0 05/18/2018 [facility] Monocytes # 0.7 K/CMM 0.0 - 0.8 05/18/2018 [facility] HEMATOLOGY Segs-Bands # 6.0 K/CMM 1.5 - 8.1 05/18/2018 [facility] Eosinophils # 0.1 K/CMM 0.0 - 0.5 05/18/2018 [facility] HEMATOLOGY Lymphocytes # 1.0 K/CMM 1.0 - 5.5 05/18/2018 [facility] HEMATOLOGY Lymphocytes 13.4 % 20.0 - 40.0 05/18/2018 [facility] HEMATOLOGY Monocytes 8.4 % 2.0 - 12.0 05/18/2018 [facility] HEMATOLOGY Segs 76.9 % 45.0 - 75.0 05/18/2018 [facility] Chest 1view DX Chest 1view DX Clinical Indication: - chest pain Comparison: 05/10/2018 FINDINGS: Single frontal radiograph of the chest is performed. Heart size is within normal limits. Mediastinal contours are unremarkable. Lungs are clear without infiltrate or mass. No pleural effusion or pneumothorax. No acute osseous abnormality. IMPRESSION: 1. No radiographic evidence for acute process in the chest. SL: [id number] 05/18/2018 - - Read by: Felix Madrid MD Dictated Date/time: 05/18/18 01:49 Electronically Signed by: Felix Madrid MD 05/18/18 01:49 FINAL REPORT [facility] CARDIAC ENZYMES Troponin-I null 0.00 - 0.40 05/10/2018 [facility] CARDIAC ENZYMES CK MB null 0.5 - 3.6 05/10/2018 [facility] CHEM PANEL eGFR 108 mL/min/1.73m2 05/10/2018 Result Comment: The eGFR is calculated using the [...] from the National Kidney Disease Education Program (NKDEP) which additionally recommends that when the eGFR is used in patients with extremes of body mass index for purposes of drug dosing, the eGFR should be multiplied by the estimated BMI. [facility] CHEM PANEL Albumin Lvl 4.0 g/dL 3.5 - 5.0 05/10/2018 [facility] CHEM PANEL Total Protein 7.8 g/dL 6.4 - 8.4 05/10/2018 [facility] CHEM PANEL Calcium Lvl 8.8 mg/dL 8.5 - 10.5 05/10/2018 [facility] CHEM PANEL ALT 23 unit/L 0 - 65 05/10/2018 [facility] CHEM PANEL Bili Total 0.3 mg/dL 0.2 - 1.3 05/10/2018 [facility] CHEM PANEL Alk Phos 69 unit/L 39 - 136 05/10/2018 [facility] CHEM PANEL AST 14 unit/L 0 - 37 05/10/2018 [facility] CHEM PANEL Chloride Lvl 106 meq/L 95 - 109 05/10/2018 [facility] CHEM PANEL Sodium Lvl 139 meq/L 135 - 145 05/10/2018 [facility] CHEM PANEL Creatinine Lvl 0.64 mg/dL 0.50 - 1.40 05/10/2018 [facility] CHEM PANEL Potassium Lvl 3.7 meq/L 3.5 - 5.1 05/10/2018 [facility] CHEM PANEL CO2 23 meq/L 24 - 32 05/10/2018 [facility] CHEM PANEL BUN 14 mg/dL 7 - 22 05/10/2018 [facility] CHEM PANEL Glucose Lvl 89 mg/dL 70 - 99 05/10/2018 [facility] CHEM PANEL Globulin 3.8 g/dL 2.7 - 4.2 05/10/2018 [facility] CHEM PANEL B/C Ratio 22 6 - 25 05/10/2018 [facility] CHEM PANEL AGAP 13.7 meq/L 10.0 - 20.0 05/10/2018 [facility] CHEM PANEL A/G Ratio 1.1 0.7 - 1.6 05/10/2018 [facility] ENDOCRINOLOGY S Preg Negative *NA* (05/10/18 5:29 PM) Negative 05/10/2018 [facility] HEMATOLOGY Segs 68.4 % 45.0 - 75.0 05/10/2018 [facility] HEMATOLOGY Lymphocytes 22.4 % 20.0 - 40.0 05/10/2018 [facility] HEMATOLOGY Basophils 0.4 % 0.0 - 1.0 05/10/2018 [facility] HEMATOLOGY Segs-Bands # 5.0 K/CMM 1.5 - 8.1 05/10/2018 [facility] HEMATOLOGY Eosinophils 0.7 % 0.0 - 4.0 05/10/2018 [facility] HEMATOLOGY Monocytes 8.1 % 2.0 - 12.0 05/10/2018 [facility] HEMATOLOGY Monocytes # 0.6 K/CMM 0.0 - 0.8 05/10/2018 [facility] Lymphocytes # 1.6 K/CMM 1.0 - 5.5 05/10/2018 [facility] Eosinophils # 0.1 K/CMM 0.0 - 0.5 05/10/2018 [facility] D-Dimer 0.50 ug/mL FEU 05/10/2018 [facility] MCH 26.1 pg 27.0 - 31.0 05/10/2018 [facility] MPV 9.0 fL 7.4 - 10.4 05/10/2018 [facility] Hgb 11.4 g/dL 12.0 - 16.0 05/10/2018 [facility] RBC 4.37 M/CMM 4.20 - 5.40 05/10/2018 [facility] MCV 79.6 fL 80.0 - 98.0 05/10/2018 [facility] Hct 34.8 % 36.0 - 48.0 05/10/2018 [facility] RDW 15.4 % 11.5 - 14.5 05/10/2018 [facility] WBC 7.3 K/CMM 3.7 - 10.4 05/10/2018 [facility] MCHC 32.8 g/dL 32.0 - 36.0 05/10/2018 [facility] Platelet 276 K/CMM 133 - 450 05/10/2018 [facility] Pulmonary Embolism CTA Chest Pulmonary Embolism CTA CTA PULMONARY ARTERIES: HISTORY: Dyspnea. TECHNIQUE: Multislice helical images targeted to the pulmonary arteries were done during IV contrast bolus. This was followed by a complete study of the chest with IV contrast. 3-D volume rendered images of the pulmonary arteries were done. DLP 511.96 mGycm. ANGIOGRAPHIC FINDINGS: There is no evidence of pulmonary embolus. The central pulmonary arteries are normal caliber. The main pulmonary artery measures 2.0 in diameter. There are no other significant pulmonary or systemic vascular abnormalities. NON-ANGIOGRAPHIC FINDINGS: There are no significant pulmonary or pleural abnormalities. There is no mediastinal mass or significant lymph node enlargement. There are no significant osseous abnormalities. There is no significant change compared to the previous chest CT on 05/22/2012. IMPRESSION: 1. No evidence of pulmonary embolus. 2. No other acute CT abnormalities of the chest. ARNOLDO DLAWRENCE-EDUIN 05/10/2018 - - Read by: Rajat Downey MD Dictated Date/time: 05/10/18 19:07 Electronically Signed by: Rajat Downey MD 05/10/18 19:11 FINAL REPORT [facility] Chest 2 views DX Chest 2 views DX Clinical Indication: - anxiety, CP; Comparison: January 29, 2012 FINDINGS: The PA and lateral chest radiographs shows normal lung volumes without interstitial or airspace opacities, pleural effusions or pneumothorax. The heart size and pulmonary vasculature are normal. The trachea is midline. There are no clinically significant osseous abnormalities noted. IMPRESSION: No chest radiographic evidence of acute cardiopulmonary disease. SL: [id number] 05/10/2018 - - Read by: Elver Stoddard MD Dictated Date/time: 05/10/18 13:51 Electronically Signed by: Elver Stoddard MD 05/10/18 13:52 FINAL REPORT [facility] Digital Mammo Screening Tay MA Digital Mammo Screening Tay MA - DIGITAL MAMMO SCREENING TAY MA BILATERAL DIGITAL SCREENING MAMMOGRAM WITH CAD: 04/05/2016 CLINICAL: Other Screening Mammogram. Current study was evaluated with a Computer Aided Detection (CAD) system. Exam is read without the benefit of comparison films. We have not yet received films from the prior facility where the patient states her prior mammograms were performed. Interpretation has been delayed secondary to this. The tissue of both breasts is heterogeneously dense, which could obscure detection of small masses. There are benign appearing vascular calcifications in both breasts. There also are benign appearing densities in both breasts. Additionally there are benign appearing calcifications in the right breast. No significant masses, calcifications, or other findings are seen in either breast. IMPRESSION: BENIGN There is no mammographic evidence of malignancy. A 1 year screening mammogram is recommended. SUMMARY: Prior mammograms would be of added benefit to document shelter stability. This aids in establishing benignity. The patient should make additional efforts to locate her prior exams. An addendum will be made if additional films are provided. Chris new/cornell:04/25/2016 15:12:30 Cloth Opener Hand: Eliza Floyd, [facility] This exam was dictated and interpreted by [id number] for [facility] [place]. letter sent: Bilateral Benign Mammogram BI-RADS: 2 Benign 04/05/2016 - - Read by: Chris Avila MD Dictated Date/time: 04/25/16 15:12 Electronically Signed by: Chris Avila MD 04/25/16 15:12 FINAL REPORT [facility] Microbiology Culture: Blood 02/01/2012 [facility] CHEMISTRY AGAP 16.3 meq/L 10.0 - 20.0 02/01/2012 Normal [facility] CHEMISTRY Calcium Lvl 7.2 mg/dL 8.5 - 10.5 02/01/2012 LOW [facility] CHEMISTRY CO2 22 meq/L 24 - 32 02/01/2012 LOW [facility] CHEMISTRY Glucose Lvl 114 mg/dL 02/01/2012 NA 2Interpretive Data: Reference Ranges : 0 - 7 days : 41 - 90 mg/dL7 days - 150 yrs : 70 - 99 mg/dL (fasting), based on the clinical recommendations of the [place] Diabetes Association. [facility] CHEMISTRY Potassium Lvl 3.3 meq/L 3.5 - 5.1 02/01/2012 LOW [facility] CHEMISTRY Creatinine Lvl 0.8 mg/dL 0.5 - 1.4 02/01/2012 Normal [facility] CHEMISTRY Sodium Lvl 142 meq/L 135 - 145 02/01/2012 Normal [facility] CHEMISTRY Chloride Lvl 107 meq/L 95 - 109 02/01/2012 Normal [facility] CHEMISTRY BUN 12 mg/dL 7 - 22 02/01/2012 Normal [facility] HEMATOLOGY Anisocyte 1+ *ABN* (02/01/2012 00:37:00) None Seen 02/01/2012 ABN [facility] HEMATOLOGY Basophils 0.0 % 0.0 - 1.0 02/01/2012 Normal [facility] HEMATOLOGY Segs-Bands # 6.4 K/CMM 1.5 - 8.1 02/01/2012 Normal [facility] HEMATOLOGY Eosinophils # 0.0 K/CMM 0.0 - 0.5 02/01/2012 Normal [facility] HEMATOLOGY Lymphocytes # 0.5 K/CMM 1.0 - 5.5 02/01/2012 LOW [facility] HEMATOLOGY Basophils # 0.0 K/CMM 0.0 - 0.2 02/01/2012 Normal [facility] HEMATOLOGY Monocytes # 0.5 K/CMM 0.0 - 0.8 02/01/2012 Normal [facility] HEMATOLOGY Monocytes 6.7 % 2.0 - 12.0 02/01/2012 Normal [facility] HEMATOLOGY Segs 87.1 % 45.0 - 75.0 02/01/2012 HI [facility] HEMATOLOGY Lymphocytes 6.2 % 20.0 - 40.0 02/01/2012 [facility] HEMATOLOGY Eosinophils 0.0 % 0.0 - 4.0 02/01/2012 Normal [facility] HEMATOLOGY Platelet 119 K/CMM 133 - 450 02/01/2012 [facility] HEMATOLOGY MPV 9.3 fL 7.4 - 10.4 02/01/2012 Normal [facility] HEMATOLOGY RDW 20.9 % 11.5 - 14.5 02/01/2012 HI [facility] HEMATOLOGY MCHC 33.0 g/dL 32.0 - 36.0 02/01/2012 Normal [facility] HEMATOLOGY MCH 27.6 pg 27.0 - 31.0 02/01/2012 Normal [facility] HEMATOLOGY MCV 83.6 fL 81.0 - 99.0 02/01/2012 Normal [facility] HEMATOLOGY Hct 27.8 % 36.0 - 48.0 02/01/2012 [facility] HEMATOLOGY RBC 3.33 M/CMM 4.20 - 5.40 02/01/2012 [facility] HEMATOLOGY WBC 7.4 K/CMM 3.7 - 10.4 02/01/2012 Normal [facility] HEMATOLOGY Hgb 9.2 g/dL 12.0 - 16.0 02/01/2012 [facility] Microbiology Culture: Blood 02/01/2012 [facility] URINALYSIS UA Bacteria Moderate /HPF (01/31/2012 15:28:00) None Seen 01/31/2012 Normal [facility] URINALYSIS UA RBC 3-5 /HPF *ABN* (01/31/2012 15:28:00) 0 - 2 01/31/2012 ABN [facility] URINALYSIS UA WBC 6-10 /HPF *ABN* (01/31/2012 15:28:00) None Seen 01/31/2012 ABN [facility] URINALYSIS UA Color Yellow *NA* (01/31/2012 15:28:00) Yellow 01/31/2012 NA [facility] URINALYSIS UA Glucose Negative (01/31/2012 15:28:00) Negative 01/31/2012 Normal [facility] URINALYSIS UA Protein 100 mg/dL *ABN* (01/31/2012 15:28:00) Negative 01/31/2012 ABN [facility] URINALYSIS UA Amorph Myranda Occasional /HPF *ABN* (01/31/2012 15:28:00) None Seen 01/31/2012 ABN [facility] URINALYSIS UA Leuk Est Negative (01/31/2012 15:28:00) Negative 01/31/2012 Normal [facility] URINALYSIS UA Sq Epi Moderate /LPF *ABN* (01/31/2012 15:28:00) Few 01/31/2012 ABN [facility] URINALYSIS Micro? Performed (01/31/2012 15:28:00) 01/31/2012 Normal [facility] URINALYSIS UA Blood Small *ABN* (01/31/2012 15:28:00) Negative 01/31/2012 ABN [facility] URINALYSIS UA Bili Negative (01/31/2012 15:28:00) Negative 01/31/2012 Normal [facility] URINALYSIS UA Ketones >=80 mg/dL *ABN* (01/31/2012 15:28:00) Negative 01/31/2012 ABN [facility] URINALYSIS UA Nitrite Negative (01/31/2012 15:28:00) Negative 01/31/2012 Normal [facility] URINALYSIS UA Urobilinogen 4.0 EU/dL 0.1 - 1.0 01/31/2012 HI [facility] URINALYSIS UA pH 6.0 5.0 - 8.0 01/31/2012 Normal [facility] URINALYSIS UA Spec Grav 1.025 <=1.030 01/31/2012 Normal [facility] URINALYSIS UA Turbidity Slight Cloudy (01/31/2012 15:28:00) Clear 01/31/2012 Normal [facility] Microbiology Culture: Urine 01/31/2012 [facility] CHEMISTRY Calcium Lvl 8.3 mg/dL 8.5 - 10.5 01/31/2012 LOW [facility] CHEMISTRY AGAP 15.0 meq/L 10.0 - 20.0 01/31/2012 Normal [facility] CHEMISTRY Sodium Lvl 141 meq/L 135 - 145 01/31/2012 Normal [facility] CHEMISTRY CO2 24 meq/L 24 - 32 01/31/2012 Normal [facility] CHEMISTRY Potassium Lvl 3.0 meq/L 3.5 - 5.1 01/31/2012 CRIT 1Result Comment: Critical Result(s) called to charli at 01/31/2012 17:16 bytb. Read back OK. [facility] CHEMISTRY Chloride Lvl 105 meq/L 95 - 109 01/31/2012 Normal [facility] CHEMISTRY Creatinine Lvl 0.7 mg/dL 0.5 - 1.4 01/31/2012 Normal [facility] CHEMISTRY Glucose Lvl 104 mg/dL 01/31/2012 NA 3Interpretive Data: Reference Ranges : 0 - 7 days : 41 - 90 mg/dL7 days - 150 yrs : 70 - 99 mg/dL (fasting), based on the clinical recommendations of the [place] Diabetes Association. [facility] CHEMISTRY BUN 13 mg/dL 7 - 22 01/31/2012 Normal [facility] HEMATOLOGY Hgb 10.5 g/dL 12.0 - 16.0 01/31/2012 LOW [facility] HEMATOLOGY Hct 31.9 % 36.0 - 48.0 01/31/2012 LOW [facility] HEMATOLOGY MCV 82.9 fL 81.0 - 99.0 01/31/2012 Normal [facility] HEMATOLOGY Platelet 141 K/CMM 133 - 450 01/31/2012 Normal [facility] HEMATOLOGY RDW 20.5 % 11.5 - 14.5 01/31/2012 [facility] HEMATOLOGY MCHC 32.8 g/dL 32.0 - 36.0 01/31/2012 Normal [facility] HEMATOLOGY MCH 27.2 pg 27.0 - 31.0 01/31/2012 Normal [facility] HEMATOLOGY MPV 8.6 fL 7.4 - 10.4 01/31/2012 Normal [facility] HEMATOLOGY WBC 10.0 K/CMM 3.7 - 10.4 01/31/2012 Normal [facility] HEMATOLOGY RBC 3.85 M/CMM 4.20 - 5.40 01/31/2012 [facility] HEMATOLOGY Basophils # 0.0 K/CMM 0.0 - 0.2 01/31/2012 Normal [facility] HEMATOLOGY Lymphocytes # 0.3 K/CMM 1.0 - 5.5 01/31/2012 LOW [facility] HEMATOLOGY Eosinophils # 0.0 K/CMM 0.0 - 0.5 01/31/2012 Normal [facility] HEMATOLOGY Monocytes # 0.5 K/CMM 0.0 - 0.8 01/31/2012 Normal [facility] HEMATOLOGY Anisocyte 1+ *ABN* (01/31/2012 15:25:00) None Seen 01/31/2012 ABN [facility] HEMATOLOGY Eosinophils 0.0 % 0.0 - 4.0 01/31/2012 Normal [facility] HEMATOLOGY Segs-Bands # 9.2 K/CMM 1.5 - 8.1 01/31/2012 [facility] HEMATOLOGY Monocytes 4.7 % 2.0 - 12.0 01/31/2012 Normal [facility] HEMATOLOGY Lymphocytes 2.6 % 20.0 - 40.0 01/31/2012 LOW [facility] HEMATOLOGY Segs 92.7 % 45.0 - 75.0 01/31/2012 [facility] HEMATOLOGY Basophils 0.0 % 0.0 - 1.0 01/31/2012 Normal [facility] CHEMISTRY S Preg Negative *NA* (01/31/2012 15:24:00) Negative 01/31/2012 NA [facility] Vital Signs Vital Sign Value Date Comments Source Systolic (mm Hg) 135 06/14/2018 [facility] Diastolic (mm Hg) 53 06/14/2018 [facility] Temperature Oral (F) 98.1 F 06/14/2018 [facility] Respitory Rate 18 06/14/2018 [facility] Heart Rate 72 06/14/2018 [facility] Weight 50 06/13/2018 [facility] BMI Calculated 18.92 06/13/2018 [facility] Height 162.56 cm 06/13/2018 [facility] Temperature Oral (F) 98.4 F 06/13/2018 [facility] Heart Rate 82 06/13/2018 [facility] Respitory Rate 18 06/13/2018 [facility] Systolic (mm Hg) 148 06/13/2018 [facility] Diastolic (mm Hg) 77 06/13/2018 [facility] Systolic (mm Hg) 126 06/08/2018 [facility] Diastolic (mm Hg) 84 06/08/2018 [facility] Heart Rate 89 06/08/2018 [facility] Heart Rate 70 06/08/2018 [facility] Systolic (mm Hg) 133 06/08/2018 [facility] Diastolic (mm Hg) 86 06/08/2018 [facility] Heart Rate 69 06/08/2018 [facility] Systolic (mm Hg) 127 06/08/2018 [facility] Diastolic (mm Hg) 81 06/08/2018 [facility] Weight 50 06/08/2018 [facility] Height 162.56 cm 06/08/2018 [facility] BMI Calculated 18.92 06/08/2018 [facility] Temperature Oral (F) 98.5 F 06/08/2018 [facility] Respitory Rate 18 06/08/2018 [facility] Systolic (mm Hg) 123 06/07/2018 [facility] Diastolic (mm Hg) 75 06/07/2018 [facility] Temperature Oral (F) 97.9 F 06/07/2018 [facility] Respitory Rate 15 06/07/2018 [facility] Respitory Rate 15 06/07/2018 [facility] Systolic (mm Hg) 144 06/07/2018 [facility] Diastolic (mm Hg) 98 06/07/2018 [facility] Systolic (mm Hg) 139 06/07/2018 [facility] Diastolic (mm Hg) 89 06/07/2018 [facility] Respitory Rate 14 06/07/2018 [facility] BMI Calculated 22.67 06/07/2018 [facility] Weight 50.909 06/07/2018 [facility] Height 149.86 cm 06/07/2018 [facility] Temperature Oral (F) 98.2 F 06/07/2018 [facility] Heart Rate 72 06/07/2018 [facility] Systolic (mm Hg) 126 05/24/2018 [facility] Diastolic (mm Hg) 83 05/24/2018 [facility] Heart Rate 65 05/24/2018 [facility] Respitory Rate 16 05/24/2018 [facility] Weight 51.42 05/24/2018 [facility] Height 149.86 cm 05/24/2018 [facility] BMI Calculated 22.9 05/24/2018 [facility] Systolic (mm Hg) 137 05/24/2018 [facility] Diastolic (mm Hg) 86 05/24/2018 [facility] Respitory Rate 20 05/24/2018 [facility] Heart Rate 73 05/24/2018 [facility] Temperature Oral (F) 97.4 F 05/24/2018 [facility] Systolic (mm Hg) 116 05/18/2018 [facility] Diastolic (mm Hg) 75 05/18/2018 [facility] Respitory Rate 18 05/18/2018 [facility] Temperature Oral (F) 98.3 F 05/18/2018 [facility] Respitory Rate 19 05/18/2018 [facility] Systolic (mm Hg) 160 05/18/2018 [facility] Diastolic (mm Hg) 93 05/18/2018 [facility] Temperature Oral (F) 98.2 F 05/18/2018 [facility] Heart Rate 87 05/18/2018 [facility] Respitory Rate 18 05/18/2018 [facility] Height 149.86 cm 05/18/2018 [facility] BMI Calculated 32.38 05/18/2018 [facility] Weight 72.727 05/18/2018 [facility] Temperature Oral (F) 98.3 F 05/18/2018 [facility] Systolic (mm Hg) 137 05/18/2018 [facility] Diastolic (mm Hg) 87 05/18/2018 [facility] Heart Rate 97 05/18/2018 [facility] Systolic (mm Hg) 119 05/11/2018 [facility] Diastolic (mm Hg) 68 05/11/2018 [facility] Heart Rate 79 05/11/2018 [facility] Respitory Rate 16 05/11/2018 [facility] Temperature Oral (F) 98.1 F 05/11/2018 [facility] Temperature Oral (F) 97.9 F 05/10/2018 [facility] Heart Rate 90 05/10/2018 [facility] Respitory Rate 16 05/10/2018 [facility] Systolic (mm Hg) 136 05/10/2018 [facility] Diastolic (mm Hg) 92 05/10/2018 [facility] Weight 63.636 05/10/2018 [facility] Height 162.56 cm 05/10/2018 [facility] BMI Calculated 24.08 05/10/2018 [facility] Respitory Rate 18 05/10/2018 [facility] Heart Rate 97 05/10/2018 [facility] Temperature Oral (F) 98.1 F 05/10/2018 [facility] Systolic (mm Hg) 147 05/10/2018 [facility] Diastolic (mm Hg) 98 05/10/2018 [facility] Temperature Oral (F) 98.1 F 02/01/2012 [facility] Heart Rate 66 02/01/2012 [facility] Respitory Rate 18 02/01/2012 [facility] Systolic (mm Hg) 116 02/01/2012 [facility] Diastolic (mm Hg) 79 02/01/2012 [facility] Diastolic (mm Hg) 79 02/01/2012 [facility] Systolic (mm Hg) 117 02/01/2012 [facility] Respitory Rate 18 02/01/2012 [facility] Temperature Oral (F) 97.6 F 02/01/2012 [facility] Heart Rate 70 02/01/2012 [facility] Diastolic (mm Hg) 77 02/01/2012 [facility] Systolic (mm Hg) 113 02/01/2012 [facility] Respitory Rate 18 02/01/2012 [facility] Heart Rate 80 02/01/2012 [facility] Temperature Oral (F) 97.6 F 02/01/2012 [facility] Weight 50.909 02/01/2012 [facility] Height 149.86 cm 02/01/2012 [facility] Weight 50.909 01/31/2012 [facility] Height 152.40 cm 01/31/2012 [facility] Encounters Location Location Details Encounter Type Encounter Number Reason For Visit Attending Provider ADM Date DC Date Status Source [facility] Inpatient [id number] REID HURST 01/31/2012 02/01/2012 Active [facility] [id number] Elijah Phoenix 05/10/2018 05/11/2018 [facility] [id number] Cat Resendiz 05/18/2018 05/18/2018 [facility] [id number] Stevanraudel Victor 05/24/2018 05/24/2018 [facility] [id number] Iva Issacchiomaluciano 06/07/2018 06/07/2018 [facility] [id number] Aníbal Ihmaurice 06/08/2018 06/08/2018 [facility] Emergency [id number] Cat Resendiz 06/13/2018 06/14/2018 [facility] Procedures Procedure Code Date Perfomer Comments Source section [id number] [facility] Lithotripsy [id number] [facility]
== END | disposition home or self-care (01) ==
LOC: ER 14:39
DX: R07.89 Other chest pain (principal); K21.9 Gastro-esophageal reflux disease without esophagitis; F41.9 Anxiety disorder, unspecified
CPT/HCPCS: 93005; 99283

== ENCOUNTER 2019-03-20 23:44 | Emergency (ER) | payer OTHER ==
[~2019-03-20] VITALS: Ht 149.9 cm; Wt 43.1 kg
--- OUTSIDE RECORDS SUMMARY | 2019-03-20 23:47 | XMS REPORT | Continuity of Care Document ---
Author Author [facility] Interface Address Unknown Phone Unavailable Problems Problem Status Onset Date Classification Date Reported Comments Source BACK PAIN Active 02/08/2019 [facility] ARM AND BACK PAIN Active 01/04/2019 [facility] HEADACHE Active 01/31/2012 [facility] PYELONEPHRITIS, KIDNEY STONE, VOMITING Active 01/31/2012 [facility] Fever Active Problem 02/03/2012 [facility] Pain Active Problem 02/03/2012 [facility] PYELONEPHRITIS NOS Active [facility] Medications Medication Details Route Status Patient Instructions Ordering Provider Order Date Source ondansetron 4 mg, 2 mL, Route: IVP, Drug form: INJ, ONCE, PRN Nausea & Vomiting, Start date: 02/01/12 9:30:00 IVP No Longer Active [facility] 02/01/2012 [facility] fentanyl 25 microgram, 0.5 mL, Route: IVP, Drug form: INJ, Q5Min, PRN Pain Score 4-6, Start date: 02/01/12 9:30:00, Duration: 4 doses or times, Stop date: Limited # of times IVP No Longer Active [facility] 02/01/2012 [facility] acetaminophen-hydrocodone 325 mg-5 mg oral tablet 2 tab, Route: PO, Drug Form: TAB, Q4H, PRN Pain Score 4-6, Start date: 02/01/12 9:30:00, Duration: 30 day, Stop date: 03/02/12 9:29:00 PO No Longer Active [facility] 02/01/2012 [facility] naloxone 0.04 mg, 0.1 mL, Route: IVP, Drug form: INJ, Q2MIN, PRN Narcotic Reversal, Start date: 02/01/12 9:30:00, Duration: 8 doses or times, Stop date: Limited # of times IVP No Longer Active [facility] 02/01/2012 [facility] flumazenil 0.2 mg, 2 mL, Route: IVP, Drug form: INJ, PRN, PRN Benzodiazepine Reversal, Initial dose, Start date: 02/01/12 9:30:00, Duration: 30 day, Stop date: 03/02/12 9:29:00 IVP No Longer Active [facility] 02/01/2012 [facility] hydromorphone 0.5 mg, 0.5 mL, Route: IVP, Drug form: SOLN, Q5Min, PRN Pain Score 4-6, Start date: 02/01/12 9:30:00, Duration: 5 doses or times, Stop date: Limited # of times IVP No Longer Active [facility] 02/01/2012 [facility] meperidine 12.5 mg, 0.25 mL, Route: IVP, Drug form: INJ, Q30Min, PRN Other -See Comment, For shivering, Start date: 02/01/12 9:30:00, Duration: 2 doses or times, Stop date: Limited # of times IVP No Longer Active [facility] 02/01/2012 [facility] morphine Sulfate 2 mg, 1 mL, Route: IVP, Drug form: INJ, Q5Min, PRN Pain Score 4-6, Start date: 02/01/12 9:30:00, Duration: 8 doses or times, Stop date: Limited # of times IVP No Longer Active [facility] 02/01/2012 [facility] Lactated Ringers IV 1,000 mL 1,000 mL, Rate: 25 ml/hr, Infuse over: 40 hr, Route: IV, Dosing Weight 50.9 kg, Total Volume: 1,000, Start date: 02/01/12 7:45:00, Duration: 30 day, Stop date: 03/02/12 7:44:00 IV No Longer Active [place] 02/01/2012 [facility] potassium chloride 40 mEq, Route: PO, ONCE, Start date: 01/31/12 22:28:00, Stop date: 01/31/12 22:28:00 PO No Longer Active [place] 02/01/2012 [facility] Flomax 0.4 mg, 1 cap, Route: PO, Drug form: CAP, ONCE, Start date: 01/31/12 22:00:00, Stop date: 01/31/12 22:00:00 PO No Longer Active [facility] 02/01/2012 [facility] D5W 1/2NS + KCL 20mEq/L 1000ml (Premix) 1,000 mL 1,000 mL, Rate: 175 ml/hr, Infuse over: 5.7 hr, Route: IV, Dosing Weight 50.909 kg, Total Volume: 1,000, Start date: 01/31/12 21:28:00, Duration: 30 day, Stop date: 03/01/12 21:27:00 IV No Longer Active [place] 02/01/2012 [facility] Rocephin 1 g/ NS (NaCl 0.9%) 50 mL IV solution 1 gm, Route: IVPB, [id number], Start date: 01/31/12 21:00:00, Duration: 30 day, Stop date: 02/29/12 21:00:00 IVPB No Longer Active [facility] 02/01/2012 [facility] morphine Sulfate 4 mg, 2 mL, Route: IVP, Drug form: INJ, Q3H, PRN Pain Score 7-10, Start date: 01/31/12 20:57:00, Duration: 30 day, Stop date: 03/01/12 20:56:00 IVP No Longer Active [facility] 02/01/2012 [facility] ondansetron 4 mg, 2 mL, Route: IVP, Drug form: INJ, Q6H, PRN Nausea & Vomiting, Start date: 01/31/12 20:57:00, Duration: 30 day, Stop date: 03/01/12 20:56:00 IVP No Longer Active [facility] 02/01/2012 [facility] Saline Flush 0.9% 5 ml, Route: IVP, Drug Form: INJ, PRN, PRN Line Flush, Start date: 01/31/12 20:57:00, Duration: 30 day, Stop date: 03/01/12 20:56:00 IVP No Longer Active [facility] 02/01/2012 [facility] Sodium Chloride 0.9% IV 1,000 mL 1,000 mL, Rate: 125 ml/hr, Infuse over: 8 hr, Route: IV, Dosing Weight 50.909 kg, Total Volume: 1,000, Start date: 01/31/12 20:57:00, Duration: 30 day, Stop date: 03/01/12 20:56:00 IV No Longer Active [facility] 02/01/2012 [facility] ferrous sulfate 325 mg oral enteric coated tablet 325 mg, 1 tab, PO, TID, Substitution Allowed PO Active 02/01/2012 [facility] Dilaudid 0.5 mg, Route: IV, ONCE, PRN Pain, Start date: 01/31/12 19:05:00, Stop date: 03/01/12 19:04:00 IV No Longer Active [place] 02/01/2012 [facility] gentamicin 100 mg, 2.5 mL, Route: IVPB, Drug form: INJ, [id number], pharmacy to assist with dosing. First dose now, Start date: 01/31/12 19:00:00, Duration: 30 day, Stop date: 03/01/12 7:00:00 IVPB No Longer Active [facility] 02/01/2012 [facility] Rocephin 1 g/ NS (NaCl 0.9%) 50 mL IV solution 1 gm, Route: IVPB, Drug form: PDR/INJ, ONCE, Priority: STAT, Start date: 01/31/12 18:23:00, Stop date: 01/31/12 18:23:00 IVPB No Longer Active [facility] 01/31/2012 [facility] ondansetron 4 mg oral tablet, disintegrating 4 mg, 1 tab, Route: PO, Drug form: TABDIS, ONCE, Start date: 01/31/12 18:18:00, Stop date: 01/31/12 18:18:00 PO No Longer Active [facility] 01/31/2012 [facility] hydromorphone 0.5 mg, Route: IVP, ONCE, Priority: STAT, Start date: 01/31/12 18:17:00, Stop date: 01/31/12 18:17:00 IVP No Longer Active [facility] 01/31/2012 [facility] potassium chloride 20 mEq oral tablet, extended release 40 mEq, 2 tab, Route: PO, Drug form: ERTAB, ONCE, Priority: STAT, Start date: 01/31/12 17:23:00, Stop date: 01/31/12 17:23:00 PO No Longer Active [facility] 01/31/2012 [facility] morphine Sulfate 4 mg, 2 mL, Route: IVP, Drug form: INJ, ONCE, Start date: 01/31/12 15:16:00, Stop date: 01/31/12 15:16:00 IVP No Longer Active [facility] 01/31/2012 [facility] Zofran 4 mg, 2 mL, Route: IVP, Drug form: INJ, ONCE, Start date: 01/31/12 15:16:00, Stop date: 01/31/12 15:16:00 IVP No Longer Active [facility] 01/31/2012 [facility] Sodium Chloride 0.9% (Bolus) IV 1,000 mL 1,000 mL, Rate: 1,000 ml/hr, Infuse over: 1 hr, Route: IV, Dosing Weight 50.9 kg, Total Volume: 1,000, Priority: STAT, Start date: 01/31/12 15:16:00, Duration: 1 doses or times, Stop date: 01/31/12 16:15:00, Bolus DoseBolus Dose IV No Longer Active [facility] 01/31/2012 [facility] Allergies, Adverse Reactions, Alerts Substance Category Reaction Severity Reaction type Status Date Reported Comments Source penicillins drug allergy Allergy Active [facility] Immunizations Immunization Date Given Site Status Last Updated Comments Source Results Order Name Results Value Reference Range Date Interpretation Comments Source Microbiology Culture: Blood 02/01/2012 [facility] CHEMISTRY AGAP 16.3 meq/L 10.0 - 20.0 02/01/2012 Normal [facility] CHEMISTRY Calcium Lvl 7.2 mg/dL 8.5 - 10.5 02/01/2012 LOW [facility] CHEMISTRY CO2 22 meq/L 24 - 32 02/01/2012 LOW [facility] CHEMISTRY Glucose Lvl 114 mg/dL 02/01/2012 NA 2Interpretive Data: Reference Ranges : 0 - 7 days : 41 - 90 mg/dL7 days - 150 yrs : 70 - 99 mg/dL (fasting), based on the clinical recommendations of the [place] [employer]. [facility] CHEMISTRY Potassium Lvl 3.3 meq/L 3.5 - 5.1 02/01/2012 LOW [facility] CHEMISTRY Creatinine Lvl 0.8 mg/dL 0.5 - 1.4 02/01/2012 Normal [facility] CHEMISTRY Sodium Lvl 142 meq/L 135 - 145 02/01/2012 Normal [facility] CHEMISTRY Chloride Lvl 107 meq/L 95 - 109 02/01/2012 Normal [facility] CHEMISTRY BUN 12 mg/dL 7 - 22 02/01/2012 Normal [facility] HEMATOLOGY Anisocyte 1+ *ABN* (02/01/2012 00:37:00) None Seen 02/01/2012 ABN [facility] HEMATOLOGY Basophils 0.0 % 0.0 - 1.0 02/01/2012 Normal [facility] HEMATOLOGY Segs-Bands # 6.4 K/CMM 1.5 - 8.1 02/01/2012 Normal [facility] HEMATOLOGY Eosinophils # 0.0 K/CMM 0.0 - 0.5 02/01/2012 Normal [facility] HEMATOLOGY Lymphocytes # 0.5 K/CMM 1.0 - 5.5 02/01/2012 LOW [facility] HEMATOLOGY Basophils # 0.0 K/CMM 0.0 - 0.2 02/01/2012 Normal [facility] HEMATOLOGY Monocytes # 0.5 K/CMM 0.0 - 0.8 02/01/2012 Normal [facility] HEMATOLOGY Monocytes 6.7 % 2.0 - 12.0 02/01/2012 Normal [facility] HEMATOLOGY Segs 87.1 % 45.0 - 75.0 02/01/2012 [facility] HEMATOLOGY Lymphocytes 6.2 % 20.0 - 40.0 02/01/2012 LOW [facility] HEMATOLOGY Eosinophils 0.0 % 0.0 - 4.0 02/01/2012 Normal [facility] HEMATOLOGY Platelet 119 K/CMM 133 - 450 02/01/2012 LOW [facility] HEMATOLOGY MPV 9.3 fL 7.4 - 10.4 02/01/2012 Normal [facility] HEMATOLOGY RDW 20.9 % 11.5 - 14.5 02/01/2012 [facility] HEMATOLOGY MCHC 33.0 g/dL 32.0 - 36.0 02/01/2012 Normal [facility] HEMATOLOGY MCH 27.6 pg 27.0 - 31.0 02/01/2012 Normal [facility] HEMATOLOGY MCV 83.6 fL 81.0 - 99.0 02/01/2012 Normal [facility] HEMATOLOGY Hct 27.8 % 36.0 - 48.0 02/01/2012 LOW [facility] HEMATOLOGY RBC 3.33 M/CMM 4.20 - 5.40 02/01/2012 LOW [facility] HEMATOLOGY WBC 7.4 K/CMM 3.7 - 10.4 02/01/2012 Normal [facility] HEMATOLOGY Hgb 9.2 g/dL 12.0 - 16.0 02/01/2012 [facility] Microbiology Culture: Blood 02/01/2012 [facility] URINALYSIS UA Bacteria Moderate /HPF (01/31/2012 15:28:00) None Seen 01/31/2012 Normal [facility] URINALYSIS UA RBC 3-5 /HPF *ABN* (01/31/2012 15:28:00) 0 - 2 01/31/2012 [facility] URINALYSIS UA WBC 6-10 /HPF *ABN* (01/31/2012 15:28:00) None Seen 01/31/2012 [facility] URINALYSIS UA Color Yellow *NA* (01/31/2012 15:28:00) Yellow 01/31/2012 [facility] URINALYSIS UA Glucose Negative (01/31/2012 15:28:00) Negative 01/31/2012 [facility] URINALYSIS UA Protein 100 mg/dL *ABN* (01/31/2012 15:28:00) Negative 01/31/2012 [facility] URINALYSIS UA Amorph Myranda Occasional /HPF *ABN* (01/31/2012 15:28:00) None Seen 01/31/2012 [facility] URINALYSIS UA Leuk Est Negative (01/31/2012 15:28:00) Negative 01/31/2012 Normal [facility] URINALYSIS UA Sq Epi Moderate /LPF *ABN* (01/31/2012 15:28:00) Few 01/31/2012 [facility] URINALYSIS Micro? Performed (01/31/2012 15:28:00) 01/31/2012 Normal [facility] URINALYSIS UA Blood Small *ABN* (01/31/2012 15:28:00) Negative 01/31/2012 [facility] URINALYSIS UA Bili Negative (01/31/2012 15:28:00) Negative 01/31/2012 [facility] URINALYSIS UA Ketones >=80 mg/dL *ABN* (01/31/2012 15:28:00) Negative 01/31/2012 [facility] URINALYSIS UA Nitrite Negative (01/31/2012 15:28:00) Negative 01/31/2012 [facility] URINALYSIS UA Urobilinogen 4.0 EU/dL 0.1 - 1.0 01/31/2012 [facility] URINALYSIS UA pH 6.0 5.0 - 8.0 01/31/2012 [facility] URINALYSIS UA Spec Grav 1.025 <=1.030 01/31/2012 [facility] URINALYSIS UA Turbidity Slight Cloudy (01/31/2012 15:28:00) Clear 01/31/2012 Normal [facility] Microbiology Culture: Urine 01/31/2012 [facility] CHEMISTRY Calcium Lvl 8.3 mg/dL 8.5 - 10.5 01/31/2012 LOW [facility] CHEMISTRY AGAP 15.0 meq/L 10.0 - 20.0 01/31/2012 Normal [facility] CHEMISTRY Sodium Lvl 141 meq/L 135 - 145 01/31/2012 Normal [facility] CHEMISTRY CO2 24 meq/L 24 - 32 01/31/2012 Normal [facility] CHEMISTRY Potassium Lvl 3.0 meq/L 3.5 - 5.1 01/31/2012 CRIT 1Result Comment: Critical Result(s) called to charli at 01/31/2012 17:16 bytb. Read back OK. [facility] CHEMISTRY Chloride Lvl 105 meq/L 95 - 109 01/31/2012 Normal [facility] CHEMISTRY Creatinine Lvl 0.7 mg/dL 0.5 - 1.4 01/31/2012 Normal [facility] CHEMISTRY Glucose Lvl 104 mg/dL 01/31/2012 NA 3Interpretive Data: Reference Ranges : 0 - 7 days : 41 - 90 mg/dL7 days - 150 yrs : 70 - 99 mg/dL (fasting), based on the clinical recommendations of the [place] [employer]. [facility] CHEMISTRY BUN 13 mg/dL 7 - 22 01/31/2012 Normal [facility] HEMATOLOGY Hgb 10.5 g/dL 12.0 - 16.0 01/31/2012 LOW [facility] HEMATOLOGY Hct 31.9 % 36.0 - 48.0 01/31/2012 LOW [facility] HEMATOLOGY MCV 82.9 fL 81.0 - 99.0 01/31/2012 Normal [facility] HEMATOLOGY Platelet 141 K/CMM 133 - 450 01/31/2012 Normal [facility] HEMATOLOGY RDW 20.5 % 11.5 - 14.5 01/31/2012 HI [facility] HEMATOLOGY MCHC 32.8 g/dL 32.0 - 36.0 01/31/2012 Normal [facility] HEMATOLOGY MCH 27.2 pg 27.0 - 31.0 01/31/2012 Normal [facility] HEMATOLOGY MPV 8.6 fL 7.4 - 10.4 01/31/2012 Normal [facility] HEMATOLOGY WBC 10.0 K/CMM 3.7 - 10.4 01/31/2012 Normal [facility] HEMATOLOGY RBC 3.85 M/CMM 4.20 - 5.40 01/31/2012 LOW [facility] HEMATOLOGY Basophils # 0.0 K/CMM 0.0 - 0.2 01/31/2012 Normal [facility] HEMATOLOGY Lymphocytes # 0.3 K/CMM 1.0 - 5.5 01/31/2012 LOW [facility] HEMATOLOGY Eosinophils # 0.0 K/CMM 0.0 - 0.5 01/31/2012 Normal [facility] HEMATOLOGY Monocytes # 0.5 K/CMM 0.0 - 0.8 01/31/2012 Normal [facility] HEMATOLOGY Anisocyte 1+ *ABN* (01/31/2012 15:25:00) None Seen 01/31/2012 ABN [facility] HEMATOLOGY Eosinophils 0.0 % 0.0 - 4.0 01/31/2012 Normal [facility] HEMATOLOGY Segs-Bands # 9.2 K/CMM 1.5 - 8.1 01/31/2012 HI [facility] HEMATOLOGY Monocytes 4.7 % 2.0 - 12.0 01/31/2012 Normal [facility] HEMATOLOGY Lymphocytes 2.6 % 20.0 - 40.0 01/31/2012 LOW [facility] HEMATOLOGY Segs 92.7 % 45.0 - 75.0 01/31/2012 HI [facility] HEMATOLOGY Basophils 0.0 % 0.0 - 1.0 01/31/2012 Normal [facility] CHEMISTRY S Preg Negative *NA* (01/31/2012 15:24:00) Negative 01/31/2012 NA [facility] Vital Signs Vital Sign Value Date Comments Source Temperature Oral (F) 98.1 F 02/01/2012 [facility] Heart Rate 66 02/01/2012 [facility] Respitory Rate 18 02/01/2012 [facility] Systolic (mm Hg) 116 02/01/2012 [facility] Diastolic (mm Hg) 79 02/01/2012 [facility] Diastolic (mm Hg) 79 02/01/2012 [facility] Systolic (mm Hg) 117 02/01/2012 [facility] Respitory Rate 18 02/01/2012 [facility] Temperature Oral (F) 97.6 F 02/01/2012 [facility] Heart Rate 70 02/01/2012 [facility] Diastolic (mm Hg) 77 02/01/2012 [facility] Systolic (mm Hg) 113 02/01/2012 [facility] Respitory Rate 18 02/01/2012 [facility] Heart Rate 80 02/01/2012 [facility] Temperature Oral (F) 97.6 F 02/01/2012 [facility] Weight 50.909 02/01/2012 [facility] Height 149.86 cm 02/01/2012 [facility] Weight 50.909 01/31/2012 [facility] Height 152.40 cm 01/31/2012 [facility] Encounters Location Location Details Encounter Type Encounter Number Reason For Visit Attending Provider ADM Date DC Date Status Source [facility] Inpatient [id number] [facility] 01/31/2012 02/01/2012 Active [facility] Procedures Procedure Code Date Perfomer Comments Source
== END 2019-03-21 00:10 | disposition left against medical advice (07) ==
LOC: ER 23:44
DX: R07.89 Other chest pain (principal)

== ENCOUNTER 2019-08-10 09:31 | Emergency (ER) | payer OTHER ==
[~2019-08-10] VITALS: Ht 149.9 cm; Wt 43.1 kg
--- OUTSIDE RECORDS SUMMARY | 2019-08-10 09:34 | XMS REPORT | Continuity of Care Document ---
Author Author [employer] Organization [employer] Address Unknown Phone Unavailable Care Team Providers Care Entry Level Business Analyst Name Role Phone [facility] [employer] Unavailable Unavailable Problems Problem Status Onset Date Classification Date Reported Comments Source HEADACHE Active 01/31/2012 [facility] PYELONEPHRITIS, KIDNEY STONE, VOMITING Active 01/31/2012 [facility] Fever Active Problem 02/03/2012 [facility] Pain Active Problem 02/03/2012 [facility] Calculus of kidney Active Problem 03/21/[address] [facility] PYELONEPHRITIS NOS Active [facility] Medications Medication Details Route Status Patient Instructions Ordering Provider Order Date Source Iron Fum & P/Fa/Vit B & C No.9 (Integra Plus Capsule) 1 Each Capsule, 1 Cap Oral Daily Active 08/09/[address] [facility] Tamsulosin Hcl (Flomax*) 0.4 Mg Cap Daily Active Linda 07/25/[address] [facility] Tramadol Hcl (Ultram) 50 Mg Tablet Every 6 Hours as needed for Pain Active Linda07/25/[address] [facility] Amoxicillin 250 Mg Capsule, 500 Mg Oral Twice A Day Active 07/25/[address] [facility] Lansoprazole 30 Mg Capsule., 1 Cap Oral Daily Active 07/25/[address] [facility] Ondansetron (Zofran Odt) 4 Mg Tab.rapdis, 4 Mg Oral Every 6 Hours Active 07/25/[address] [facility] Sucralfate (Carafate) 1 Gm/10 Ml Oral.susp, 1 Gm Oral Four Times Daily Active 07/25/[address] [facility] Sulfamethoxazole/Trimethoprim (Bactrim Ds Tablet) 1 Each Tablet, 1 Tab Oral Twice A Day Active Linda 07/25/[address] [facility] Sumatriptan Succinate 25 Mg Tablet, 50 Mg Oral As Needed as needed for Migraine Active 07/25/[address] [facility] Amoxicillin 250 Mg Capsule, 500 Mg Oral Twice A Day Active 07/25/[address] [facility] Lansoprazole 30 Mg Capsule.dr, 1 Cap Oral Daily Active 07/25/[address] [facility] Ondansetron (Zofran Odt) 4 Mg Tab.rapdis, 4 Mg Oral Every 6 Hours Active 07/25/[address] [facility] Sucralfate (Carafate) 1 Gm/10 Ml Oral.susp, 1 Gm Oral Four Times Daily Active 07/25/[address] [facility] Sulfamethoxazole/Trimethoprim (Bactrim Ds Tablet) 1 Each Tablet, 1 Tab Oral Twice A Day Active Linda 07/25/[address] [facility] Sumatriptan Succinate 25 Mg Tablet, 50 Mg Oral As Needed as needed for Migraine Active 07/25/[address] [facility] Tamsulosin Hcl (Flomax*) 0.4 Mg Cap, 0.4 Mg Oral Daily Active Linda 07/25/[address] [facility] Tramadol Hcl (Ultram) 50 Mg Tablet, 50 Mg Oral Every 6 Hours as needed for Pain Active Linda 07/25/[address] [facility] ondansetron 4 mg, 2 mL, Route: IVP, Drug form: INJ, ONCE, PRN Nausea & Vomiting, Start date: 02/01/12 9:30:00 IVP No Longer Active [facility] 02/01/2012 [facility] fentanyl 25 microgram, 0.5 mL, Route: IVP, Drug form: INJ, Q5Min, PRN Pain Score 4-6, Start date: 02/01/12 9:30:00, Duration: 4 doses or times, Stop date: Limited # of times IVP No Longer Active [facility] 02/01/2012 [facility] acetaminophen-hydrocodone 325 mg-5 mg oral tablet 2 tab, Route: PO, Drug Form: TAB, Q4H, PRN Pain Score 4-6, Start date: 02/01/12 9:30:00, Duration: 30 day, Stop date: 03/02/12 9:29:00 PO No Longer Active [facility] 02/01/2012 [facility] naloxone 0.04 mg, 0.1 mL, Route: IVP, Drug form: INJ, Q2MIN, PRN Narcotic Reversal, Start date: 02/01/12 9:30:00, Duration: 8 doses or times, Stop date: Limited # of times IVP No Longer Active [facility] 02/01/2012 [facility] flumazenil 0.2 mg, 2 mL, Route: IVP, Drug form: INJ, PRN, PRN Benzodiazepine Reversal, Initial dose, Start date: 02/01/12 9:30:00, Duration: 30 day, Stop date: 03/02/12 9:29:00 IVP No Longer Active [facility] 02/01/2012 [facility] hydromorphone 0.5 mg, 0.5 mL, Route: IVP, Drug form: SOLN, Q5Min, PRN Pain Score 4-6, Start date: 02/01/12 9:30:00, Duration: 5 doses or times, Stop date: Limited # of times IVP No Longer Active [facility] 02/01/2012 [facility] meperidine 12.5 mg, 0.25 mL, Route: IVP, Drug form: INJ, Q30Min, PRN Other -See Comment, For shivering, Start date: 02/01/12 9:30:00, Duration: 2 doses or times, Stop date: Limited # of times IVP No Longer Active [facility] 02/01/2012 [facility] morphine Sulfate 2 mg, 1 mL, Route: IVP, Drug form: INJ, Q5Min, PRN Pain Score 4-6, Start date: 02/01/12 9:30:00, Duration: 8 doses or times, Stop date: Limited # of times IVP No Longer Active [facility] 02/01/2012 [facility] Lactated Ringers IV 1,000 mL 1,000 mL, Rate: 25 ml/hr, Infuse over: 40 hr, Route: IV, Dosing Weight 50.9 kg, Total Volume: 1,000, Start date: 02/01/12 7:45:00, Duration: 30 day, Stop date: 03/02/12 7:44:00 IV No Longer Active [place] 02/01/2012 [facility] potassium chloride 40 mEq, Route: PO, ONCE, Start date: 01/31/12 22:28:00, Stop date: 01/31/12 22:28:00 PO No Longer Active [facility] 02/01/2012 [facility] Flomax 0.4 mg, 1 cap, Route: PO, Drug form: CAP, ONCE, Start date: 01/31/12 22:00:00, Stop date: 01/31/12 22:00:00 PO No Longer Active [place] 02/01/2012 [facility] D5W 1/2NS + KCL 20mEq/L 1000ml (Premix) 1,000 mL 1,000 mL, Rate: 175 ml/hr, Infuse over: 5.7 hr, Route: IV, Dosing Weight 50.909 kg, Total Volume: 1,000, Start date: 01/31/12 21:28:00, Duration: 30 day, Stop date: 03/01/12 21:27:00 IV No Longer Active [place] 02/01/2012 [facility] Rocephin 1 g/ NS (NaCl 0.9%) 50 mL IV solution 1 gm, Route: IVPB, [id number], Start date: 01/31/12 21:00:00, Duration: 30 day, Stop date: 02/29/12 21:00:00 IVPB No Longer Active [facility] 02/01/2012 [facility] morphine Sulfate 4 mg, 2 mL, Route: IVP, Drug form: INJ, Q3H, PRN Pain Score 7-10, Start date: 01/31/12 20:57:00, Duration: 30 day, Stop date: 03/01/12 20:56:00 IVP No Longer Active [facility] 02/01/2012 [facility] ondansetron 4 mg, 2 mL, Route: IVP, Drug form: INJ, Q6H, PRN Nausea & Vomiting, Start date: 01/31/12 20:57:00, Duration: 30 day, Stop date: 03/01/12 20:56:00 IVP No Longer Active [facility] 02/01/2012 [facility] Saline Flush 0.9% 5 ml, Route: IVP, Drug Form: INJ, PRN, PRN Line Flush, Start date: 01/31/12 20:57:00, Duration: 30 day, Stop date: 03/01/12 20:56:00 IVP No Longer Active [facility] 02/01/2012 [facility] Sodium Chloride 0.9% IV 1,000 mL 1,000 mL, Rate: 125 ml/hr, Infuse over: 8 hr, Route: IV, Dosing Weight 50.909 kg, Total Volume: 1,000, Start date: 01/31/12 20:57:00, Duration: 30 day, Stop date: 03/01/12 20:56:00 IV No Longer Active [facility] 02/01/2012 [facility] ferrous sulfate 325 mg oral enteric coated tablet 325 mg, 1 tab, PO, TID, Substitution Allowed PO Active 02/01/2012 [facility] Dilaudid 0.5 mg, Route: IV, ONCE, PRN Pain, Start date: 01/31/12 19:05:00, Stop date: 03/01/12 19:04:00 IV No Longer Active [facility] 02/01/2012 [facility] gentamicin 100 mg, 2.5 mL, Route: IVPB, Drug form: INJ, [id number], pharmacy to assist with dosing. First dose now, Start date: 01/31/12 19:00:00, Duration: 30 day, Stop date: 03/01/12 7:00:00 IVPB No Longer Active [facility] 02/01/2012 [facility] Rocephin 1 g/ NS (NaCl 0.9%) 50 mL IV solution 1 gm, Route: IVPB, Drug form: PDR/INJ, ONCE, Priority: STAT, Start date: 01/31/12 18:23:00, Stop date: 01/31/12 18:23:00 IVPB No Longer Active [facility] 01/31/2012 [facility] ondansetron 4 mg oral tablet, disintegrating 4 mg, 1 tab, Route: PO, Drug form: TABDIS, ONCE, Start date: 01/31/12 18:18:00, Stop date: 01/31/12 18:18:00 PO No Longer Active [facility] 01/31/2012 [facility] hydromorphone 0.5 mg, Route: IVP, ONCE, Priority: STAT, Start date: 01/31/12 18:17:00, Stop date: 01/31/12 18:17:00 IVP No Longer Active [facility] 01/31/2012 [facility] potassium chloride 20 mEq oral tablet, extended release 40 mEq, 2 tab, Route: PO, Drug form: ERTAB, ONCE, Priority: STAT, Start date: 01/31/12 17:23:00, Stop date: 01/31/12 17:23:00 PO No Longer Active [facility] 01/31/2012 [facility] morphine Sulfate 4 mg, 2 mL, Route: IVP, Drug form: INJ, ONCE, Start date: 01/31/12 15:16:00, Stop date: 01/31/12 15:16:00 IVP No Longer Active [facility] 01/31/2012 [facility] Zofran 4 mg, 2 mL, Route: IVP, Drug form: INJ, ONCE, Start date: 01/31/12 15:16:00, Stop date: 01/31/12 15:16:00 IVP No Longer Active [facility] 01/31/2012 [facility] Sodium Chloride 0.9% (Bolus) IV 1,000 mL 1,000 mL, Rate: 1,000 ml/hr, Infuse over: 1 hr, Route: IV, Dosing Weight 50.9 kg, Total Volume: 1,000, Priority: STAT, Start date: 01/31/12 15:16:00, Duration: 1 doses or times, Stop date: 01/31/12 16:15:00, Bolus DoseBolus Dose IV No Longer Active [facility] 01/31/2012 [facility] Iron Fum & P/Fa/Vit B & C No.9 (Integra Plus Capsule) 1 Each Capsule Daily Active [facility] Lorazepam 1 Mg Tablet Bedtime Active [facility] Pantoprazole Sodium (Protonix) 40 Mg Tablet. Twice A Day Active [facility] Amoxicillin 500 Mg Capsule Twice A Day Active [facility] Cefprozil 250 Mg Tablet Twice A Day Active [facility] Lorazepam 1 Mg Tablet Bedtime Active [facility] Pantoprazole Sodium (Protonix) 40 Mg Tablet. Twice A Day Active [facility] Prednisone 20 Mg Tab Daily Active [facility] Allergies, Adverse Reactions, Alerts Substance Category Reaction Severity Reaction type Status Date Reported Comments Source Penicillin Unknown Allergy to Substance Active 10/08/[address] [facility] penicillins drug allergy Allergy Active [facility] Immunizations No Data Provided for This Section Results Order Name Results Value Reference Range Date Interpretation Comments Source Urine color determination YELLOW YELLOW 10/08/[address] [facility] Urine clarity CLEAR CLEAR 10/08/[address] [facility] Specific gravity of Urine by Test strip 1.030 1.010 - 1.025 10/08/[address] [facility] Urine pH measurement by automated test strip 6 5 - 7 10/08/[address] [facility] Urine leukocyte esterase detection by dipstick NEGATIVE NEGATIVE 10/08/[address] [facility] Urine nitrite detection NEGATIVE NEGATIVE 10/08/[address] [facility] Urine protein measurement by test strip (mass/volume) NEGATIVE NEGATIVE 10/08/[address] [facility] Urine glucose detection NEGATIVE NEGATIVE 10/08/[address] [facility] Urine ketones detection by automated test strip NEGATIVE NEGATIVE 10/08/[address] [facility] Urine urobilinogen measurement by test strip (mass/volume) 0.2 0.2 - 1 10/08/[address] [facility] Urine total bilirubin measurement (mass/volume) NEGATIVE NEGATIVE 10/08/[address] [facility] Urine erythrocytes detection NEGATIVE NEGATIVE 10/08/[address] [facility] Automated urine sediment leukocyte count by microscopy (number/high power field) NONE 0 - 5 10/08/[address] [facility] Erythrocytes detection in urine sediment by light microscopy NONE 0 - 5 10/08/[address] [facility] Bacteria detection in urine sediment by light microscopy MANY NONE 10/08/[address] [facility] Epithelial cells detection in urine sediment by light microscopy MANY NONE 10/08/[address] [facility] Amorphous sediment detection in urine sediment by light microscopy MODERATE FEW 10/08/[address] [facility] Blood leukocytes automated count (number/volume) 4.97 4.8 - 10.8 10/08/[address] [facility] Blood erythrocytes automated count (number/volume) 4.06 3.6 - 5.1 10/08/[address] [facility] Blood hemoglobin measurement (moles/volume) 11.9 12.0 - 16.0 10/08/[address] [facility] Automated blood hematocrit (volume fraction) 36.6 34.2 - 44.1 10/08/[address] [facility] Automated erythrocyte mean corpuscular volume 90.1 81 - 99 10/08/[address] [facility] Automated erythrocyte mean corpuscular hemoglobin (mass per erythrocyte) 29.3 28 - 32 10/08/[address] [facility] Automated erythrocyte mean corpuscular hemoglobin concentration measurement (mass/volume) 32.5 31 - 35 10/08/[address] [facility] RDW BldCo-Rto 17.9 11.7 - 14.4 10/08/[address] [facility] Automated blood platelet count (count/volume) 234 140 - 360 10/08/[address] [facility] Automated blood segmented neutrophil count as percentage of total leukocytes 62.5 38.7 - 80.0 10/08/[address] [facility] Automated blood lymphocyte count as percentage ot total leukocytes 25.4 18.0 - 39.1 10/08/[address] [facility] Automated blood monocyte count as percentage of total leukocytes 9.1 4.4 - 11.3 10/08/[address] [facility] Automated blood eosinophil count as percentage of total leukocytes 2.2 0.0 - 6.0 10/08/[address] [facility] Automated blood basophil count as percentage of total leukocytes 0.4 0.0 - 1.0 10/08/[address] [facility] IM GRANULOCYTES % 0.4 0.0 - 1.0 10/08/[address] [facility] Automated blood neutrophil count 3.1 2.1 - 6.9 10/08/[address] [facility] Blood lymphocytes count (number/volume) 1.3 1.0 - 3.2 10/08/[address] [facility] Blood monocytes automated count (number/volume) 0.5 0.2 - 0.8 10/08/[address] [facility] Automated blood eosinophil count 0.1 0.0 - 0.4 10/08/[address] [facility] Automated blood basophil count (count/volume) 0.0 0.0 - 0.1 10/08/[address] [facility] Absolute Immature Granulocyte (auto 0.02 0 - 0.1 10/08/[address] [facility] Prothrombin time (PT) in platelet poor plasma by coagulation assay 13.3 11.9 - 14.5 10/08/[address] [facility] INR in Platelet poor plasma by Coagulation assay 0.93 10/08/[address] [facility] Activated partial thromboplastin time (aPTT) in platelet poor plasma bycoagulation assay 33.1 23.8 - 35.5 10/08/[address] [facility] Serum or plasma sodium measurement (moles/volume) 143 136 - 145 10/08/[address] [facility] Serum or plasma potassium measurement (moles/volume) 3.2 3.5 - 5.1 10/08/[address] [facility] Serum or plasma chloride measurement (moles/volume) 108 98 - 107 10/08/[address] [facility] Serum or plasma carbon dioxide, total measurement (moles/volume) 24 22 - 29 10/08/[address] [facility] Serum or plasma anion gap 14.2 8 - 16 10/08/[address] [facility] Serum or plasma urea nitrogen measurement (mass/volume) 16 7 - 26 10/08/[address] [facility] Serum or plasma creatinine measurement (mass/volume) 0.69 0.57 - 1.11 10/08/[address] [facility] Serum or plasma urea nitrogen/creatinine mass ratio 23 6 - 25 10/08/[address] [facility] Estimated glomerular filtration rate (GFR) determination > 60 60 10/08/[address] [facility] Glucose measurement 87 74 - 118 10/08/[address] [facility] Serum or plasma calcium measurement (mass/volume) 9.2 8.4 - 10.2 10/08/[address] [facility] Serum or plasma total bilirubin measurement (mass/volume) 0.3 0.2 - 1.2 10/08/[address] [facility] Aspartate Amino Transf (AST/SGOT) 21 5 - 34 10/08/[address] [facility] Serum or plasma alanine aminotransferase measurement (enzymatic activity/volume) 12 0 - 55 10/08/[address] [facility] Serum or plasma protein measurement (mass/volume) 7.6 6.5 - 8.1 10/08/[address] [facility] Serum or plasma albumin measurement (mass/volume) 4.2 3.5 - 5.0 10/08/[address] [facility] Plasma globulin measurement (mass/volume) 3.4 2.3 - 3.5 10/08/[address] [facility] Serum or plasma albumin/globulin mass ratio 1.2 0.8 - 2.0 10/08/[address] [facility] Serum or plasma alkaline phosphatase measurement (enzymatic activity/volume) 44 40 - 150 10/08/[address] [facility] BNP Bld-mCnc < 10.0 0 - 100 10/08/[address] [facility] Serum or plasma creatine kinase measurement (enzymatic activity/volume) 100 29 - 168 10/08/[address] [facility] Serum or plasma creatine kinase MB measurement (mass/volume) 0.20 0 - 5.0 10/08/[address] [facility] Troponin I measurement by highly sensitive enzyme immunoassay < 0.001 0 - 0.300 10/08/[address] [facility] Urine human chorionic gonadotropin (hCG) detection NEGATIVE NEGATIVE 08/13/[address] [facility] Automated blood basophil count (count/volume) Automated blood basophil count (count/volume) 0.0 0.0 - 0.1 08/02/[address] [facility] Automated blood basophil count as percentage of total leukocytes Automated blood basophil count as percentage of total leukocytes 0.4 0.0 - 1.0 08/02/[address] [facility] Automated blood eosinophil count Automated blood eosinophil count 0.1 0.0 - 0.4 08/02/[address] [facility] Automated blood eosinophil count as percentage of total leukocytes Automated blood eosinophil count as percentage of total leukocytes 1.6 0.0 - 6.0 08/02/[address] [facility] Automated blood hematocrit (volume fraction) Automated blood hematocrit (volume fraction) 33.3 34.2 - 44.1 08/02/[address] [facility] Automated blood lymphocyte count as percentage ot total leukocytes Automated blood lymphocyte count as percentage ot total leukocytes 23.0 18.0 - 39.1 08/02/[address] [facility] Automated blood monocyte count as percentage of total leukocytes Automated blood monocyte count as percentage of total leukocytes 8.0 4.4 - 11.3 08/02/[address] [facility] Automated blood neutrophil count Automated blood neutrophil count 3.2 2.1 - 6.9 08/02/[address] [facility] Automated blood platelet count (count/volume) Automated blood platelet count (count/volume) 331 140 - 360 08/02/[address] [facility] Automated blood segmented neutrophil count as percentage of total leukocytes Automated blood segmented neutrophil count as percentage of total leukocytes 66.6 38.7 - 80.0 08/02/[address] [facility] Automated erythrocyte mean corpuscular hemoglobin (mass per erythrocyte) Automated erythrocyte mean corpuscular hemoglobin (mass per erythrocyte) 25.1 28 - 32 08/02/[address] [facility] Automated erythrocyte mean corpuscular hemoglobin concentration measurement (mass/volume) Automated erythrocyte mean corpuscular hemoglobin concentration measurement (mass/volume) 30.6 31 - 35 08/02/[address] [facility] Automated erythrocyte mean corpuscular volume Automated erythrocyte mean corpuscular volume 82.0 81 - 99 08/02/[address] [facility] Blood erythrocytes automated count (number/volume) Blood erythrocytes automated count (number/volume) 4.06 3.6 - 5.1 08/02/[address] [facility] Blood hemoglobin measurement (moles/volume) Blood hemoglobin measurement (moles/volume) 10.2 12.0 - 16.0 08/02/[address] [facility] Blood leukocytes automated count (number/volume) Blood leukocytes automated count (number/volume) 4.87 4.8 - 10.8 08/02/[address] [facility] Blood lymphocytes count (number/volume) Blood lymphocytes count (number/volume) 1.1 1.0 - 3.2 08/02/[address] [facility] Blood monocytes automated count (number/volume) Blood monocytes automated count (number/volume) 0.4 0.2 - 0.8 08/02/[address] [facility] Estimated glomerular filtration rate (GFR) determination Estimated glomerular filtration rate (GFR) determination >60 60 08/02/[address] [facility] Glucose measurement Glucose measurement 81 74 - 118 08/02/[address] [facility] Plasma globulin measurement (mass/volume) Plasma globulin measurement (mass/volume) 3.3 2.3 - 3.5 08/02/[address] [facility] Serum or plasma alanine aminotransferase measurement (enzymatic activity/volume) Serum or plasma alanine aminotransferase measurement (enzymatic activity/volume) 21 0 - 55 08/02/[address] [facility] Serum or plasma albumin measurement (mass/volume) Serum or plasma albumin measurement (mass/volume) 4.3 3.5 - 5.0 08/02/[address] [facility] Serum or plasma albumin/globulin mass ratio Serum or plasma albumin/globulin mass ratio 1.3 0.8 - 2.0 08/02/[address] [facility] Serum or plasma alkaline phosphatase measurement (enzymatic activity/volume) Serum or plasma alkaline phosphatase measurement (enzymatic activity/volume) 57 40 - 150 08/02/[address] [facility] Serum or plasma anion gap Serum or plasma anion gap 16.4 8 - 16 08/02/[address] [facility] Serum or plasma calcium measurement (mass/volume) Serum or plasma calcium measurement (mass/volume) 9.8 8.4 - 10.2 08/02/[address] [facility] Serum or plasma carbon dioxide, total measurement (moles/volume) Serum or plasma carbon dioxide, total measurement (moles/volume) 23 22 - 29 08/02/[address] [facility] Serum or plasma chloride measurement (moles/volume) Serum or plasma chloride measurement (moles/volume) 100 98 - 107 08/02/[address] [facility] Serum or plasma creatine kinase MB measurement (mass/volume) Serum or plasma creatine kinase MB measurement (mass/volume) 0.40 0 - 5.0 08/02/[address] [facility] Serum or plasma creatine kinase measurement (enzymatic activity/volume) Serum or plasma creatine kinase measurement (enzymatic activity/volume) 46 29 - 168 08/02/[address] [facility] Serum or plasma creatinine measurement (mass/volume) Serum or plasma creatinine measurement (mass/volume) 0.63 0.57 - 1.11 08/02/[address] [facility] Serum or plasma potassium measurement (moles/volume) Serum or plasma potassium measurement (moles/volume) 3.4 3.5 - 5.1 08/02/[address] [facility] Serum or plasma protein measurement (mass/volume) Serum or plasma protein measurement (mass/volume) 7.6 6.5 - 8.1 08/02/[address] [facility] Serum or plasma sodium measurement (moles/volume) Serum or plasma sodium measurement (moles/volume) 136 136 - 145 08/02/[address] [facility] Serum or plasma total bilirubin measurement (mass/volume) Serum or plasma total bilirubin measurement (mass/volume) 0.6 0.2 - 1.2 08/02/[address] [facility] Serum or plasma urea nitrogen measurement (mass/volume) Serum or plasma urea nitrogen measurement (mass/volume) 12 7 - 26 08/02/[address] [facility] Serum or plasma urea nitrogen/creatinine mass ratio Serum or plasma urea nitrogen/creatinine mass ratio 19 6 - 25 08/02/[address] [facility] Troponin I measurement by highly sensitive enzyme immunoassay Troponin I measurement by highly sensitive enzyme immunoassay <0.001 0 - 0.300 08/02/[address] [facility] Red Cell Distribution Width 18.6 11.7 - 14.4 08/02/[address] [facility] IM GRANULOCYTES % 0.4 0.0 - 1.0 08/02/[address] [facility] Absolute Immature Granulocyte (auto 0.02 0 - 0.1 08/02/[address] [facility] Aspartate Amino Transf (AST/SGOT) 26 5 - 34 08/02/[address] [facility] Automated urine sediment leukocyte count by microscopy (number/high power field) Automated urine sediment leukocyte count by microscopy (number/high power field) NONE 0 - 5 08/02/[address] [facility] Bacteria detection in urine sediment by light microscopy Bacteria detection in urine sediment by light microscopy MODERATE NONE 08/02/[address] [facility] Epithelial cells detection in urine sediment by light microscopy Epithelial cells detection in urine sediment by light microscopy MANY NONE 08/02/[address] [facility] Erythrocytes detection in urine sediment by light microscopy Erythrocytes detection in urine sediment by light microscopy >50 0 - 5 08/02/[address] [facility] Specific gravity of Urine by Test strip Specific gravity of Urine by Test strip 1.030 1.010 - 1.025 08/02/[address] [facility] Urine clarity Urine clarity SL CLOUDY CLEAR 08/02/[address] [facility] Urine color determination Urine color determination YELLOW YELLOW 08/02/[address] [facility] Urine erythrocytes detection Urine erythrocytes detection 4+ NEGATIVE 08/02/[address] [facility] Urine glucose detection Urine glucose detection NEGATIVE NEGATIVE 08/02/[address] [facility] Urine ketones detection by automated test strip Urine ketones detection by automated test strip 2+ NEGATIVE 08/02/[address] [facility] Urine leukocyte esterase detection by dipstick Urine leukocyte esterase detection by dipstick TRACE NEGATIVE 08/02/[address] [facility] Urine nitrite detection Urine nitrite detection NEGATIVE NEGATIVE 08/02/[address] [facility] Urine pH measurement by automated test strip Urine pH measurement by automated test strip 6 5 - 7 08/02/[address] [facility] Urine protein measurement by test strip (mass/volume) Urine protein measurement by test strip (mass/volume) 1+ NEGATIVE 08/02/[address] [facility] Urine total bilirubin measurement (mass/volume) Urine total bilirubin measurement (mass/volume) NEGATIVE NEGATIVE 08/02/[address] [facility] Urine urobilinogen measurement by test strip (mass/volume) Urine urobilinogen measurement by test strip (mass/volume) 0.2 0.2 - 1 08/02/[address] [facility] Serum or plasma choriogonadotropin ( test) detection NEGATIVE NEGATIVE 07/25/[address] [facility] Serum or plasma choriogonadotropin ( test) detection Serum or plasma choriogonadotropin ( test) detection NEGATIVE NEGATIVE 07/25/[address] [facility] Fibrin D-dimer DDU measurement in platelet poor plasma (mass/volume) 0.21 0.00 - 0.45 07/02/[address] [facility] Activated partial thromboplastin time (aPTT) in platelet poor plasma bycoagulation assay Activated partial thromboplastin time (aPTT) in platelet poor plasma bycoagulation assay 33.1 23.8 - 35.5 07/02/[address] [facility] Fibrin D-dimer DDU measurement in platelet poor plasma (mass/volume) Fibrin D-dimer DDU measurement in platelet poor plasma (mass/volume) 0.21 0.00 - 0.45 07/02/[address] [facility] INR in Platelet poor plasma by Coagulation assay INR in Platelet poor plasma by Coagulation assay 1.16 07/02/[address] [facility] Prothrombin time (PT) in platelet poor plasma by coagulation assay Prothrombin time (PT) in platelet poor plasma by coagulation assay 13.9 11.9 - 14.5 07/02/[address] [facility] Urine human chorionic gonadotropin (hCG) detection Urine human chorionic gonadotropin (hCG) detection NEGATIVE NEGATIVE 07/02/[address] [facility] Serum or plasma amylase measurement (enzymatic activity/volume) 55 25 - 125 06/30/[address] [facility] Serum or plasma lipase measurement (enzymatic activity/volume) 56 8 - 78 06/30/[address] [facility] Serum or plasma amylase measurement (enzymatic activity/volume) Serum or plasma amylase measurement (enzymatic activity/volume) 55 25 - 125 06/30/[address] [facility] Serum or plasma lipase measurement (enzymatic activity/volume) Serum or plasma lipase measurement (enzymatic activity/volume) 56 8 - 78 06/30/[address] [facility] Microbiology Culture: Blood 02/01/2012 [facility] CHEMISTRY AGAP 16.3 10.0 - 20.0 02/01/2012 Normal [facility] CHEMISTRY Calcium Lvl 7.2 8.5 - 10.5 02/01/2012 LOW [facility] CHEMISTRY CO2 22 24 - 32 02/01/2012 LOW [facility] CHEMISTRY Glucose Lvl 114 02/01/2012 NA <sup>2</sup>Interpretive Data: Reference Ranges : 0 - 7 days : 41 - 90 mg/dL 7 days - 150 yrs : 70 - 99 mg/dL (fasting), based on the clinical recommendations of the [place] [employer]. [facility] CHEMISTRY Potassium Lvl 3.3 3.5 - 5.1 02/01/2012 LOW [facility] CHEMISTRY Creatinine Lvl 0.8 0.5 - 1.4 02/01/2012 Normal [facility] CHEMISTRY Sodium Lvl 142 135 - 145 02/01/2012 Normal [facility] CHEMISTRY Chloride Lvl 107 95 - 109 02/01/2012 Normal [facility] CHEMISTRY BUN 12 7 - 22 02/01/2012 Normal [facility] HEMATOLOGY Anisocyte 1+ *ABN* (02/01/2012 00:37:00) None Seen 02/01/2012 ABN [facility] HEMATOLOGY Basophils 0.0 0.0 - 1.0 02/01/2012 Normal [facility] HEMATOLOGY Segs-Bands # 6.4 1.5 - 8.1 02/01/2012 Normal [facility] HEMATOLOGY Eosinophils # 0.0 0.0 - 0.5 02/01/2012 Normal [facility] HEMATOLOGY Lymphocytes # 0.5 1.0 - 5.5 02/01/2012 LOW [facility] HEMATOLOGY Basophils # 0.0 0.0 - 0.2 02/01/2012 Normal [facility] HEMATOLOGY Monocytes # 0.5 0.0 - 0.8 02/01/2012 Normal [facility] HEMATOLOGY Monocytes 6.7 2.0 - 12.0 02/01/2012 Normal [facility] HEMATOLOGY Segs 87.1 45.0 - 75.0 02/01/2012 [facility] HEMATOLOGY Lymphocytes 6.2 20.0 - 40.0 02/01/2012 LOW [facility] HEMATOLOGY Eosinophils 0.0 0.0 - 4.0 02/01/2012 Normal [facility] HEMATOLOGY Platelet 119 133 - 450 02/01/2012 LOW [facility] HEMATOLOGY MPV 9.3 7.4 - 10.4 02/01/2012 Normal [facility] HEMATOLOGY RDW 20.9 11.5 - 14.5 02/01/2012 [facility] HEMATOLOGY MCHC 33.0 32.0 - 36.0 02/01/2012 Normal [facility] HEMATOLOGY MCH 27.6 27.0 - 31.0 02/01/2012 Normal [facility] HEMATOLOGY MCV 83.6 81.0 - 99.0 02/01/2012 Normal [facility] HEMATOLOGY Hct 27.8 36.0 - 48.0 02/01/2012 LOW [facility] HEMATOLOGY RBC 3.33 4.20 - 5.40 02/01/2012 LOW [facility] HEMATOLOGY WBC 7.4 3.7 - 10.4 02/01/2012 Normal [facility] HEMATOLOGY Hgb 9.2 12.0 - 16.0 02/01/2012 LOW [facility] Microbiology Culture: Blood 02/01/2012 [facility] URINALYSIS UA Bacteria Moderate /HPF (01/31/2012 15:28:00) None Seen 01/31/2012 Normal [facility] URINALYSIS UA RBC 3-5 /HPF *ABN* (01/31/2012 15:28:00) 0 - 2 01/31/2012 ABN [facility] URINALYSIS UA WBC 6-10 /HPF *ABN* (01/31/2012 15:28:00) None Seen 01/31/2012 ABN [facility] URINALYSIS UA Color Yellow *NA* (01/31/2012 15:28:00) Yellow 01/31/2012 NA [facility] URINALYSIS UA Glucose Negative (01/31/2012 15:28:00) Negative 01/31/2012 Normal [facility] URINALYSIS UA Protein 100 mg/dL *ABN* (01/31/2012 15:28:00) Negative 01/31/2012 ABN [facility] URINALYSIS UA Amorph Myranda Occasional /HPF *ABN* (01/31/2012 15:28:00) None Seen 01/31/2012 ABN [facility] URINALYSIS UA Leuk Est Negative (01/31/2012 15:28:00) Negative 01/31/2012 Normal [facility] URINALYSIS UA Sq Epi Moderate /LPF *ABN* (01/31/2012 15:28:00) Few 01/31/2012 ABN [facility] URINALYSIS Micro? Performed (01/31/2012 15:28:00) 01/31/2012 Normal [facility] URINALYSIS UA Blood Small *ABN* (01/31/2012 15:28:00) Negative 01/31/2012 ABN [facility] URINALYSIS UA Bili Negative (01/31/2012 15:28:00) Negative 01/31/2012 Normal [facility] URINALYSIS UA Ketones >=80 mg/dL *ABN* (01/31/2012 15:28:00) Negative 01/31/2012 ABN [facility] URINALYSIS UA Nitrite Negative (01/31/2012 15:28:00) Negative 01/31/2012 Normal [facility] URINALYSIS UA Urobilinogen 4.0 0.1 - 1.0 01/31/2012 HI [facility] URINALYSIS UA pH 6.0 5.0 - 8.0 01/31/2012 Normal [facility] URINALYSIS UA Spec Grav 1.025 <=1.030 01/31/2012 Normal [facility] URINALYSIS UA Turbidity Slight Cloudy (01/31/2012 15:28:00) Clear 01/31/2012 Normal [facility] Microbiology Culture: Urine 01/31/2012 [facility] CHEMISTRY Calcium Lvl 8.3 8.5 - 10.5 01/31/2012 LOW [facility] CHEMISTRY AGAP 15.0 10.0 - 20.0 01/31/2012 Normal [facility] CHEMISTRY Sodium Lvl 141 135 - 145 01/31/2012 Normal [facility] CHEMISTRY CO2 24 24 - 32 01/31/2012 Normal [facility] CHEMISTRY Potassium Lvl 3.0 3.5 - 5.1 01/31/2012 CRIT <sup>1</sup>Result Comment: Critical Result(s) called to charli at 01/31/2012 17:16 bytb. Read back OK. [facility] CHEMISTRY Chloride Lvl 105 95 - 109 01/31/2012 Normal [facility] CHEMISTRY Creatinine Lvl 0.7 0.5 - 1.4 01/31/2012 Normal [facility] CHEMISTRY Glucose Lvl 104 01/31/2012 NA <sup>3</sup>Interpretive Data: Reference Ranges : 0 - 7 days : 41 - 90 mg/dL 7 days - 150 yrs : 70 - 99 mg/dL (fasting), based on the clinical recommendations of the [place] [employer]. [facility] CHEMISTRY BUN 13 7 - 22 01/31/2012 Normal [facility] HEMATOLOGY Hgb 10.5 12.0 - 16.0 01/31/2012 LOW [facility] HEMATOLOGY Hct 31.9 36.0 - 48.0 01/31/2012 LOW [facility] HEMATOLOGY MCV 82.9 81.0 - 99.0 01/31/2012 Normal [facility] HEMATOLOGY Platelet 141 133 - 450 01/31/2012 Normal [facility] HEMATOLOGY RDW 20.5 11.5 - 14.5 01/31/2012 [facility] HEMATOLOGY MCHC 32.8 32.0 - 36.0 01/31/2012 Normal [facility] HEMATOLOGY MCH 27.2 27.0 - 31.0 01/31/2012 Normal [facility] HEMATOLOGY MPV 8.6 7.4 - 10.4 01/31/2012 Normal [facility] HEMATOLOGY WBC 10.0 3.7 - 10.4 01/31/2012 Normal [facility] HEMATOLOGY RBC 3.85 4.20 - 5.40 01/31/2012 LOW [facility] HEMATOLOGY Basophils # 0.0 0.0 - 0.2 01/31/2012 Normal [facility] HEMATOLOGY Lymphocytes # 0.3 1.0 - 5.5 01/31/2012 LOW [facility] HEMATOLOGY Eosinophils # 0.0 0.0 - 0.5 01/31/2012 Normal [facility] HEMATOLOGY Monocytes # 0.5 0.0 - 0.8 01/31/2012 Normal [facility] HEMATOLOGY Anisocyte 1+ *ABN* (01/31/2012 15:25:00) None Seen 01/31/2012 ABN [facility] HEMATOLOGY Eosinophils 0.0 0.0 - 4.0 01/31/2012 Normal [facility] HEMATOLOGY Segs-Bands # 9.2 1.5 - 8.1 01/31/2012 [facility] HEMATOLOGY Monocytes 4.7 2.0 - 12.0 01/31/2012 Normal [facility] HEMATOLOGY Lymphocytes 2.6 20.0 - 40.0 01/31/2012 LOW [facility] HEMATOLOGY Segs 92.7 45.0 - 75.0 01/31/2012 [facility] HEMATOLOGY Basophils 0.0 0.0 - 1.0 01/31/2012 Normal [facility] CHEMISTRY S Preg Negative *NA* (01/31/2012 15:24:00) Negative 01/31/2012 NA [facility] Pathology Reports No Data Provided for This Section Diagnostic Reports No Data Provided for This Section Consultation Notes No Data Provided for This Section Discharge Summaries No Data Provided for This Section History and Physicals No Data Provided for This Section Vital Signs Vital Sign Value Date Comments Source Temperature Oral (F) 98.1 F 02/01/2012 [facility] Heart Rate 66 02/01/2012 [facility] Respitory Rate 18 02/01/2012 [facility] Systolic (mm Hg) 116 02/01/2012 [facility] Diastolic (mm Hg) 79 02/01/2012 [facility] Diastolic (mm Hg) 79 02/01/2012 [facility] Systolic (mm Hg) 117 02/01/2012 [facility] Respitory Rate 18 02/01/2012 [facility] Temperature Oral (F) 97.6 F 02/01/2012 [facility] Heart Rate 70 02/01/2012 [facility] Diastolic (mm Hg) 77 02/01/2012 [facility] Systolic (mm Hg) 113 02/01/2012 [facility] Respitory Rate 18 02/01/2012 [facility] Heart Rate 80 02/01/2012 [facility] Temperature Oral (F) 97.6 F 02/01/2012 [facility] Weight 50.909 02/01/2012 [facility] Height 149.86 cm 02/01/2012 [facility] Weight 50.909 01/31/2012 [facility] Height 152.40 cm 01/31/2012 [facility] Encounters Location Location Details Encounter Type Encounter Number Reason For Visit Attending Provider ADM Date DC Date Status Source [facility] Inpatient [id number] REID HURST 01/31/2012 02/01/2012 Discharged [facility] Departed Emergency Room [id number] ALYSE COTTER MD 06/30/2018 06/30/[address] [facility] Registered Surgical Day Care [id number] BLANCHE TEJEDA MD 07/02/[address] [facility] Departed Emergency Room [id number] YADIRA KHANNA MD 07/02/2018 07/03/[address] [facility] Discharged Inpatient (obs) [id number] HARJEET RUBIN MD 07/25/2018 07/26/[address] [facility] Departed Emergency Room [id number] ALSYE COTTER MD 08/01/2018 08/01/[address] [facility] Departed Emergency Room [id number] ANDI VARELA MD 08/02/2018 08/02/[address] [facility] Registered Surgical Day Care [id number] NAZARIO CAI MD 08/13/[address] [facility] Departed Emergency Room [id number] DARRON ORTIZ MD 09/20/2018 09/20/[address] [facility] Departed Emergency Room [id number] SANDRA NIETO MD 10/08/2018 10/08/[address] [facility] Registered Emergency Room [id number] SANDRA NIETO MD 01/02/[address] [facility] Departed Emergency Room [id number] ANDI VARELA MD 03/20/2019 03/21/[address] [facility] Procedures Procedure Code Date Perfomer Comments Source CYSTOSCOPY AND TREATMENT [id number] 08/13/2018 [facility] Computed tomography of brain without radiopaque contrast [id number] 08/02/2018 [facility] CYSTOSCOPY AND TREATMENT [id number] 07/25/2018 [facility] CT of abdomen and pelvis without contrast [id number] 07/25/2018 [facility] EGD BIOPSY SINGLE/MULTIPLE [id number] 07/02/2018 [facility] DILATE ESOPHAGUS 1/MULT PASS [id number] 07/02/2018 [facility] X-ray of chest, two views [id number] 07/02/2018 [facility] Computed tomography of soft tissues of neck without contrast [id number] 06/30/2018 [facility] Assessment and Plan No Data Provided for This Section Plan of Care Plan of Care Date Source Discharge Date 03/21/19 12:10am Disposition LEFT AFTER MEDICAL SCREENING Condition at Discharge Stable Forms Provided Work/School Excuse Prescriptions See Medication Section 03/21/[address] [facility] Discharge Date 10/08/18 7:05pm Disposition HOME, SELF-CARE Condition at Discharge Stable Instructions/Education Provided Abdominal Pain - Adult Chest Pain - Chest Wall Forms Provided Work/School Excuse Prescriptions See Medication Section Referrals SEAN ALEJO Address: [address] [place], [place] [id number] Additional Instructions/Education follow up with pcp take meds as directed 10/08/[address] [facility] Discharge Date 08/02/18 7:19pm Disposition HOME, SELF-CARE Condition at Discharge Stable Instructions/Education Provided Weakness (Generalized) Forms Provided Work/School Excuse Prescriptions See Medication Section Referrals DARLENE TEJEDA MD Address: [address] [place] [address] [address] [place], [place] [id number] Additional Instructions/Education 1. Please f/u with your PCP and compensation manager 2. Your vitals signs and lab work as well as CT brain in the ED were normal 08/02/[address] [facility] Social History Social History Date Source No social history information available. 03/21/[address] [facility] Family History No Data Provided for This Section Advance Directives Order Name Results Value Date Source Advance Directives Advance Directives Directive Response Recorded Date/Time Does the patient have an advance directive? No 07/25/18 1:09pm 03/21/[address] [facility] Advance Directives Advance Directives Directive Response Recorded Date/Time Does the patient have an advance directive? No 07/25/18 1:09pm Do you have a Directive to Physician? No 10/08/18 4:18pm Do you have a Medical Power of Gas Leak Inspector? No 10/08/18 4:18pm Do you have an out of hospital Do Not Resuscitate Order? No 10/08/18 4:18pm Do you have any special needs we should be aware of? No 10/08/18 4:18pm Do you have a support person here with you today? No 10/08/18 4:18pm Did patient receive Notice of Privacy Practices? Yes 10/08/18 4:18pm Did patient receive patient rights and responsibilities? Yes 10/08/18 4:18pm 10/08/[address] [facility] Advance Directives Advance Directives Directive Response Recorded Date/Time Does the patient have an advance directive? No 07/25/18 1:09pm If yes, is advance directive on file with [facility]? No 07/25/18 1:09pm If not on file with [facility] will patient provide a copy? No 07/25/18 1:09pm Do you have a Directive to Physician? No 08/02/18 5:43pm Do you have a Medical Power of Gas Leak Inspector? No 08/02/18 5:43pm Do you have an out of hospital Do Not Resuscitate Order? No 08/02/18 5:43pm Do you have any special needs we should be aware of? No 08/02/18 5:43pm Do you have a support person here with you today? Yes 08/02/18 5:43pm Did patient receive Notice of Privacy Practices? Yes 08/02/18 5:43pm Did patient receive patient rights and responsibilities? Yes 08/02/18 5:43pm 08/02/[address] [facility] Functional Status No Data Provided for This Section
[2019-08-10] MEDS ORDERED: ASPIRIN 81 MG CHEW TAB PO ONE (10:15)
[2019-08-10 10:25] LABS: BASOPHILS % 0.6 % (0.0-1.0); EOSINOPHILS # (AUTO) 0.1 (0.0-0.4); HEMATOCRIT 36.1 % (34.2-44.1); HEMOGLOBIN 11.7 g/dL (12.0-16.0); LYMPHOCYTES # (AUTO) 1.3 (1.0-3.2); LYMPHOCYTES % 37.1 % (18.0-39.1); MEAN CORPUSCULAR HGB CONC 32.4 g/dL (31-35); MEAN CORPUSCULAR VOLUME 92.6 fL (81-99); MONOCYTES # (AUTO) 0.4 (0.2-0.8); MONOCYTES % 10.4 % (4.4-11.3); NEUTROPHILS # (AUTO) 1.8 (2.1-6.9); NEUTROPHILS % 49.9 % (38.7-80.0); PLATELET COUNT 242 x10e3/uL (140-360); RED CELL DISTRIBUTION WIDTH 13.5 % (11.7-14.4)
[2019-08-10] MEDS ORDERED: CYCLOBENZAPRINE HCL 10 MG TAB PO NR (10:30)
[2019-08-10] MEDS ORDERED: IBUPROFEN 400 MG TAB PO NR (10:30)
--- NOTE | 2019-08-10 10:30 | NUR ---
1030- FLEXIRIL 10MG po GIVE AND MOTRIN 400MG po GIVEN
[2019-08-10 10:37] LABS: INR 0.92; PROTHROMBIN TIME 12.8 seconds (11.9-14.5)
[2019-08-10 10:38] LABS: PARTIAL THROMBOPLASTIN TIME 34.5 seconds (23.8-35.5)
[2019-08-10 10:47] LABS: ALANINE AMINOTRANSFERASE 23 IU/L (0-55); ALBUMIN 3.9 g/dL (3.5-5.0); ALBUMIN/GLOBULIN RATIO 1.3 (0.8-2.0); ALKALINE PHOSPHATASE 43 IU/L (40-150); ANION GAP 10.7 mmol/L (8-16); BLOOD UREA NITROGEN 19 mg/dL (7-26); BUN/CREATININE RATIO 26 (6-25); CALCIUM 9.4 mg/dL (8.4-10.2); CARBON DIOXIDE 27 mmol/L (22-29); CHLORIDE 104 mmol/L (98-107); CREATINE KINASE 44 IU/L (29-168); CREATININE, SERUM 0.72 mg/dL (0.57-1.11); EST GLOMERULAR FILTRATION RATE > 60 ML/MIN (60-); GLUCOSE 86 mg/dL (74-118); POTASSIUM 3.7 mmol/L (3.5-5.1); SODIUM 138 mmol/L (136-145)
--- NOTE | 2019-08-10 11:26 | Diagnostic Imaging Report ---
Examination: Single AP view of the chest. COMPARISON: 10/08/2018 INDICATION: Chest pain DISCUSSION: Lines/tubes: None. Lungs: The lungs are well inflated and clear. There is no evidence of pneumonia or pulmonary edema. Pleura: There is no pleural effusion or pneumothorax. Heart and mediastinum: The heart and the mediastinum are unremarkable. Bones and soft tissues: No acute bony abnormalities. IMPRESSION: 1. No acute cardiopulmonary abnormalities. Signed by: Dr. Rajat Stuart M.D. on 08/10/2019 11:23 AM
== END 2019-08-10 11:41 | disposition home or self-care (01) ==
LOC: ER 09:31
DX: R07.89 Other chest pain (principal); D64.9 Anemia, unspecified; F41.9 Anxiety disorder, unspecified
CPT/HCPCS: 36415; 71045; 80053; 82550; 82553; 83735; 84484; 85025; 85610; 85730; 93005; 99284

== ENCOUNTER 2019-08-23 10:39 | Emergency (ER) | payer OTHER ==
[~2019-08-23] VITALS: Ht 149.9 cm; Wt 37.6 kg
--- OUTSIDE RECORDS SUMMARY | 2019-08-23 10:42 | XMS REPORT ---
[facility] Address Unknown Phone Unavailable Care Team Providers Care Sap Fico Architect Name Role Phone Esvin NIETO Unavailable Unavailable Tamera ORTIZ Unavailable Unavailable Virginia VARELA Unavailable Unavailable Jannie KHANNA Unavailable Unavailable Kristal COTTER Unavailable Unavailable Payers Payer Name Policy Type Policy Number Effective Date Expiration Date Problems This patient has no known problems. Allergies, Adverse Reactions, Alerts Allergy Name Allergy Type Status Severity Reaction(s) Onset Date Inactive Date Treating Clinician Comments morphine DA Active U 2019-06-07 00:00:00 PCN DA Active U 2019-06-07 00:00:00 morphine DA Active [place] 2019-04-25 00:00:00 Penicillins DA Active [place] 2018-06-27 00:00:00 Penicillins DA Active [place] 2018-04-29 00:00:00 Medications This patient has no known medications. Encounters Start Date/Time End Date/Time Encounter Type Admission Type Attending [facility] Facility Care Department Encounter ID 2019-07-29 21:42:00 2019-07-29 21:42:00 Emergency E [facility]SE [facility]SE [id number] 2019-06-21 09:59:00 2019-06-21 09:59:00 Emergency E [facility]SE [facility]SE 7521 2019-06-08 16:03:00 2019-06-08 16:03:00 Emergency E MHSE [facility]SE 7520 2019-05-27 18:05:00 2019-05-27 18:05:00 Emergency E MHSE MHSE 7519 2019-04-04 03:42:2019-04-04 03:42:00 Emergency E SE SE 7518 Results Test Description Test Time Test Comments Text Results Atomic Results Result Comments CHEST SINGLE (NOT PORTABLE) 2019-08-10 11:22:00 [place] [address] Patient Name: BARRIE TILLMAN MR #: [id number] : 1970 Age/Sex: 48/F Req #: [id number] Adm Physician: Ordered by: SANDRA NIETO MD Report #: [id number] Location: ER Room/Bed: Procedure: [id number] DX/CHEST SINGLE (NOT PORTABLE) Exam Date: 08/10/19 Exam Time: 1045 REPORT STATUS: Signed Examination: Single AP view of the chest. COMPARISON: 10/08/2018 INDICATION: Chest pain DISCUSSION: Lines/tubes: None. Lungs: The lungs are well inflated and clear. There is no evidence of pneumonia or pulmonary edema. Pleura: There is no pleural effusion or pneumothorax. Heart and mediastinum: The heart and the mediastinum are unremarkable. Bones and soft tissues: No acute bony abnormalities. IMPRESSION: 1. No acute cardiopulmonary abnormalities. Signed by: Dr. Cassandra Stuart M.D. on 08/10/2019 11:23 AM Dictated By: CASSANDRA STUART MD 112 Transcribed By: MAE on 08/10/19 1123 COPY TO: SANDRA NIETO MD - CT ABD PELVIS W/CONT 2019-06-07 23:49:00 Patient Name: BARRIE TILLMAN Unit No: [id number] EXAMS: CPT CODE: [id number] CT ABD PELVIS W/CONT 19452 EXAM: CT, CT ABDOMEN PELVIS W CONTRAST: 06/07/2019, 2312 hours HISTORY: abd pain COMPARISON: None available. TECHNIQUE: Helical imaging was performed from diaphragm through the symphysis with coronal and sagittal reconstructions. CT imaging was performed with exposure control parameters to reduce radiation dose. All CT scans at this location are performed using dose optimization techniques as appropriate to perform exam including the following: * Automated exposure control * Adjustment of the mA and /or kV according to patient size (this includes techniques or standardized protocols for targeted exams where dose is matched to indication/reason for exam; extremities or head) * Use of iterative reconstruction technique IV CONTRAST: 100 cc Isovue. GI CONTRAST: YES CT Radiation Dose: DLD=771 mGy-cm FINDINGS: LOWER CHEST: The visualized lung bases are clear. LIVER: 8 mm hypodensity left hepatic lobe, probably benign such as cyst or hemangi saul.. GALLBLADDER: Surgically absent INTRAHEPATIC BILE DUCT AND EXTRAHEPATIC BILE DUCT: Unremarkable. PANCREAS: Unremarkable. SPLEEN: Unremarkable. ADRENALS: Unremarkable. KIDNEYS AND URETERS: 2 mm nonobstructing stone lower pole of the left kidney. No hydronephrosis seen bilaterally.. STOMACH: Unremarkable. BOWEL: The small bowel loops in the abdomen and pelvis appear unremarkable. Large fecal load in the colon APPENDIX: Not well seen on the exam. PERITONEUM AND RETROPERITONEUM: No ascites or free air. There is no aortic aneurysm or dissection. [facility] NAME: BARRIE TILLMAN Radiology Department PHYS: Sandip Boland [address] : 1970 AGE: 48 SEX: F [place], [place] [address] LOC: [place] PHONE #: [phone] EXAM DATE: 06/07/2019 STATUS: REG ER FAX #: [phone] RAD NO: Page 1 Signed Report 1 Patient Name: TILLMAN,BARRIE Unit No: [id number] EXAMS: CPT CODE: [id number] CT ABD PELVIS W/CONT 66601 <Continued> LYMPH NODES: Unremarkable. PELVIS: No pelvic mass or adenopathy. Bulky uterus. A 2.0 x 3.1 x 1.6 cm irregular cystic lesion in the left ovary. A 1.4 x 1.7 x 1.9 cm hyperdense or enhancing lesion also in left ovary. BLADDER: Unremarkable. OSSEOUS STRUCTURES: No acute abnormality seen. SOFT TISSUES: Unremarkable. IMPRESSION: 1. Large fecal load in the colon. 2. Bulky uterus. 2 complex lesion in the left ovary as above. Pelvic ultrasound would be beneficial. 3. Nonobstructing stone left kidney. No hydronephrosis bilaterally. SL: MARILYN at 2349 Reported and signed by: Mike Lu M.D. CC: Technologist: TERE GRAHAM, CT, RT CTDI: 3.33 DLP: 147.00 Trnscrbd D/ (7309) [email or web address] [facility] Department PHYS: Harry Lovettneema Crowley [address] : 1970 AGE: 48 SEX: F [place] [address] LOC: JocyERS PHONE #: [phone] EXAM DATE: 06/07/2019 STATUS: REG ER FAX #: [phone] RAD NO: Page 2 Signed Report 1 Patient Name: BARRIE TILLMAN Unit No: [id number] EXAMS: CPT CODE: [id number] CT ABD PELVIS W/CONT 58201 <Continued> Orig Print D/T: S: 06/07/2019 (0850) [facility] NAME: [facility] Radiology Department PHYS: Harry Lovettneema Sarabiaroger [address] : 1970 AGE: 48 SEX: F [place], [place] [address] LOC: German.ERS PHONE #: [phone] EXAM DATE: 06/07/2019 STATUS: REG ER FAX #: [phone] RAD NO: Page 3 Signed Report 1 COMPREHENSIVE METABOLIC PANEL 2019-06-07 22:29:00 SODIUM (test code=NA) 138 mEq/L 135-145 POTASSIUM (test code=K) 3.3 mEq/L 3.5-5.0 CHLORIDE (test code=CL) 101 mEq/L 100-115 CARBON DIOXIDE (test code=CO2) 30 mEq/L 22-31 ANION GAP (test code=GAP) 10.10 10-20 GLUCOSE (test code=GLU) 110 mg/dL 65-110 BLOOD UREA NITROGEN (test code=BUN) 16 mg/dL 7-18 GLOMERULAR FILTRATION RATE (test code=GFR) 108 ml/min >60 CREATININE (test code=CREAT) 0.6 mg/dL 0.5-1.0 TOTAL PROTEIN (test code=PROT) 7.9 gm/dL 6.3-8.2 ALBUMIN (test code=ALB) 4.1 gm/dL 3.4-4.8 CALCIUM (test code=CA) 9.2 mg/dL 8.4-10.2 BILIRUBIN TOTAL (test code=BILT) 0.3 mg/dL 0.2-1.0 SGOT/AST (test code=AST) 27 units/L 15-37 SGPT/ALT (test code=ALT) 30 units/L 12-78 ALKALINE PHOSPHATASE TOTAL (test code=ALKP) 60 units/L 46-116 [id number] 22:29:00* Test Item Value Reference Range Comments LIPASE (test code=LIP) 288 units/L 73-393 UA RFLX MICR CULT IF [id number] 22:24:00* Test Item Value Reference Range Comments UA COLOR (test code=COLU) YELLOW YELLOW UA APPEARANCE (test code=APPU) CLOUDY CLEAR UA GLUCOSE DIPSTICK (test code=DGLUU) NEGATIVE NEG UA BILIRUBIN DIPSTICK (test code=BILU) NEGATIVE NEG UA KETONE DIPSTICK (test code=KETU) TRACE NEG UA SPECIFIC GRAVITY (test code=SGU) 1.020 1.001-1.035 UA BLOOD DIPSTICK (test code=RAVEN) NEG NEG UA PH DIPSTICK (test code=SHELBIE) 8.0 5-9 UA PROTEIN DIPSTICK (test code=PROU) NEGATIVE NEG UA UROBILINIOGEN DIPSTICK (test code=URO) NEGATIVE mg/dL NEG UA NITRITE DIPSTICK (test code=MULU) NEG NEG UA LEUKOCYTE ESTERASE DIPSTICK (test code=LEUU) NEG NEG UA WBC (test code=WBCU) 0-2 #/hpf NONE SEEN UA RBC (test code=RBCU) NONE SEEN #/hpf NONE SEEN UA EPITHELIAL CELLS (test code=EPIU) FEW #/HPF RARE-FEW UA BACTERIA (test code=BACU) NEGATIVE /HPF RARE-FEW UA MUCUS (test code=MUCU) RARE NONE SEEN UA AMORPHOUS SEDIMENT (test code=AMORU) 1+ Indication for culture: Flank PainCBC W/AUTO [id number] 22:15:00* Test Item Value Reference Range Comments WHITE BLOOD CELL (test code=WBC) 4.9 K/mm3 6.6-12.1 RED BLOOD CELL (test code=RBC) 4.21 M/mm3 3.45-5.01 HEMOGLOBIN (test code=HGB) 12.7 g/dL 10.7-13.9 HEMATOCRIT (test code=HCT) 39.3 % 32.1-42.1 MEAN CELL VOLUME (test code=MCV) 93 fL 84.1-94.8 MEAN CELL HGB (test code=MCH) 30.2 pg 27-35 MEAN CELL HGB CONCETRATION (test code=MCHC) 32.3 gm/dL 32.2-34.1 RED CELL DISTRIBUTION WIDTH (test code=RDW) 13.7 % 12.4-16.5 PLATELET COUNT (test code=PLT) 253 K/mm3 133-385 IMMATURE PLATELET FRACTION (test code=IPF) 0.0 % 0.0-10.8 MEAN PLATELET VOLUME (test code=MPV) 10.0 fl 9.1-12.7 NEUTROPHIL % (test code=NT%) 50.2 % 56.5-79.4 LYMPHOCYTE % (test code=LY%) 38.5 % 14.3-34.3 MONOCYTE % (test code=MO%) 8.9 % 5.1-10.4 EOSINOPHIL % (test code=EO%) 1.8 % 0.1-3.0 BASOPHIL % (test code=BA%) 0.4 % 0.1-1.0 NEUTROPHIL # (test code=NT#) 2.5 K/mm3 LYMPHOCYTE # (test code=LY#) 1.9 K/mm3 MONOCYTE # (test code=MO#) 0.4 K/mm3 EOSINOPHIL # (test code=EO#) 0.09 K/mm3 BASOPHIL # (test code=BA#) 0.0 K/mm3 RBC MORPHOLOGY REQUIRED (test code=RBCM) NORMAL NORMAL PLATELET MORPHOLOGY REQUIRED (test code=PLTMR) NORMAL NORMAL B-TYPE NATRIURETIC [id number] 16:42:00* Test Item Value Reference Range Comments B-TYPE NATRIURETIC PEPTIDE (test code=BNP) 12.49 pgram/mL 0-100 BASIC METABOLIC [id number] 16:11:00* Test Item Value Reference Range Comments SODIUM (test code=NA) 142 mmol/L 136-145 POTASSIUM (test code=K) 3.4 mmol/L 3.5-5.1 CHLORIDE (test code=CL) 109.0 mmol/L 98-107 CARBON DIOXIDE (test code=CO2) 27.0 mmol/L 21-32 ANION GAP (test code=GAP) 9.4 10-20 GLUCOSE (test code=GLU) 91 mg/dL 74-106 BLOOD UREA NITROGEN (test code=BUN) 19 mg/dL 7-18 GLOMERULAR FILTRATION RATE (test code=GFR) > 60 mL/min >=60 Estimated GFR by using Modified MDRD formula.Chronic kidney disease is defined as either kidney damageor GFR <60 mL/min/1.73 m2 for >3 months. CREATININE (test code=CREAT) 0.50 mg/dL 0.55-1.02 Note change in reference range due to change in reagent. BUN/CREATININE RATIO (test code=BUN/CREA) 38.0 10-20 CALCIUM (test code=CA) 8.1 mg/dL 8.5-10.1 [id number] 16:11:00* Test Item Value Reference Range Comments MAGNESIUM (test code=MAG) 2.3 mg/dL 1.8-2.4 HCG SERUM [id number] 16:11:00* Test Item Value Reference Range Comments HCG SERUM QUAL (test code=HCGQL) NEGATIVE NEGATIVE This HCGQL test is NOT applicable for MALE patients.Check with nurse about probable order error.If Tumor Marker Test needed, nurse should order test "HCGTU"(Test #550.85948) [id number] 16:11:00* Test Item Value Reference Range Comments TROPONIN-I (test code=TROPI) <0.015 ng/mL 0-0.045 URINALYSIS [id number] 16:03:00* Test Item Value Reference Range Comments UA COLOR (test code=COLU) YELLOW YELLOW UA APPEARANCE (test code=APPU) Cloudy CLEAR UA GLUCOSE DIPSTICK (test code=DGLUU) NEGATIVE mg/dL NEGATIVE UA BILIRUBIN DIPSTICK (test code=BILU) NEGATIVE mg/dL NEGATIVE UA KETONE DIPSTICK (test code=KETU) NEGATIVE mg/dL NEGATIVE UA SPECIFIC GRAVITY (test code=SGU) 1.030 1.001-1.035 UA BLOOD DIPSTICK (test code=RAVEN) >1.0 mg/dL NEGATIVE UA PH DIPSTICK (test code=SHELBIE) 7.0 5.0-8.0 UA PROTEIN DIPSTICK (test code=PROU) 20 (Trace) mg/dL NEGATIVE UA UROBILINIOGEN DIPSTICK (test code=URO) Normal mg/dL NEGATIVE UA NITRITE DIPSTICK (test code=MULU) NEGATIVE NEGATIVE UA LEUKOCYTE ESTERASE W REFLEX (test code=LEUUR) NEGATIVE Carlyle/uL NEGATIVE UA WBC (test code=WBCU) 0-5 per HPF 0-5 UA RBC (test code=RBCU) >200 #/HPF 0-5 UA EPITHELIAL CELLS (test code=EPIU) FEW per HPF FEW UA BACTERIA (test code=BACU) FEW #/HPF NONE UA MUCUS (test code=MUCU) FEW #/LPF FEW UA AMORPHOUS SEDIMENT (test code=AMORU) FEW #/LPF NONE Urine Source? Clean CatchCBC W/O [id number] 15:59:00* Test Item Value Reference Range Comments WHITE BLOOD CELL (test code=WBC) 4.5 K/mm3 4.5-12.5 RED BLOOD CELL (test code=RBC) 3.61 mill/mm3 3.7-5.2 HEMOGLOBIN (test code=HGB) 10.6 gram/dL 11.5-15.5 HEMATOCRIT (test code=HCT) 32.5 % 36.0-46.0 MEAN CELL VOLUME (test code=MCV) 90.0 fL 80-98 MEAN CELL HGB (test code=MCH) 29.4 picogram 27.0-33.0 MEAN CELL HGB CONCETRATION (test code=MCHC) 32.6 gram/dL 33.0-36.0 RED CELL DISTRIBUTION WIDTH (test code=RDW) 17.2 % 11.6-16.2 PLATELET COUNT (test code=PLT) 201 K/mm3 150-450 MEAN PLATELET VOLUME (test code=MPV) 10.7 fL 6.7-11.0 BASIC METABOLIC [id number] 15:59:00* Test Item Value Reference Range Comments SODIUM (test code=NA) 142 mmol/L 136-145 POTASSIUM (test code=K) 3.4 mmol/L 3.5-5.1 CHLORIDE (test code=CL) 109.0 mmol/L 98-107 CARBON DIOXIDE (test code=CO2) mmol/L 21-32 ANION GAP (test code=GAP) 10-20 GLUCOSE (test code=GLU) mg/dL 74-106 BLOOD UREA NITROGEN (test code=BUN) mg/dL 7-18 GLOMERULAR FILTRATION RATE (test code=GFR) mL/min >=60 CREATININE (test code=CREAT) mg/dL 0.55-1.02 BUN/CREATININE RATIO (test code=BUN/CREA) 10-20 CALCIUM (test code=CA) mg/dL 8.5-10.1 [id number] 15:59:00* Test Item Value Reference Range Comments MAGNESIUM (test code=MAG) mg/dL 1.8-2.4 HCG SERUM [id number] 15:59:00* Test Item Value Reference Range Comments HCG SERUM QUAL (test code=HCGQL) NEGATIVE NEGATIVE This HCGQL test is NOT applicable for MALE patients.Check with nurse about probable order error.If Tumor Marker Test needed, nurse should order test "HCGTU"(Test #550.45893) [id number] 15:59:00* Test Item Value Reference Range Comments TROPONIN-I (test code=TROPI) ng/mL 0-0.045 URINALYSIS [id number] 15:58:00* Test Item Value Reference Range Comments UA COLOR (test code=COLU) YELLOW YELLOW UA APPEARANCE (test code=APPU) Cloudy CLEAR UA GLUCOSE DIPSTICK (test code=DGLUU) NEGATIVE mg/dL NEGATIVE UA BILIRUBIN DIPSTICK (test code=BILU) NEGATIVE mg/dL NEGATIVE UA KETONE DIPSTICK (test code=KETU) NEGATIVE mg/dL NEGATIVE UA SPECIFIC GRAVITY (test code=SGU) 1.030 1.001-1.035 UA BLOOD DIPSTICK (test code=RAVEN) >1.0 mg/dL NEGATIVE UA PH DIPSTICK (test code=SHELBIE) 7.0 5.0-8.0 UA PROTEIN DIPSTICK (test code=PROU) 20 (Trace) mg/dL NEGATIVE UA UROBILINIOGEN DIPSTICK (test code=URO) Normal mg/dL NEGATIVE UA NITRITE DIPSTICK (test code=MULU) NEGATIVE NEGATIVE UA LEUKOCYTE ESTERASE W REFLEX (test code=LEUUR) NEGATIVE Carlyle/uL NEGATIVE UA WBC (test code=WBCU) per HPF 0-5 UA RBC (test code=RBCU) per HPF 0-5 UA EPITHELIAL CELLS (test code=EPIU) per HPF Few UA BACTERIA (test code=BACU) per HPF NONE Urine Source? Clean CatchBASIC METABOLIC [id number] 15:55:00* Test Item Value Reference Range Comments SODIUM (test code=NA) 142 mmol/L 136-145 POTASSIUM (test code=K) 3.4 mmol/L 3.5-5.1 CHLORIDE (test code=CL) 109.0 mmol/L 98-107 CARBON DIOXIDE (test code=CO2) mmol/L 21-32 ANION GAP (test code=GAP) 10-20 GLUCOSE (test code=GLU) mg/dL 74-106 BLOOD UREA NITROGEN (test code=BUN) mg/dL 7-18 GLOMERULAR FILTRATION RATE (test code=GFR) mL/min >=60 CREATININE (test code=CREAT) mg/dL 0.55-1.02 BUN/CREATININE RATIO (test code=BUN/CREA) 10-20 CALCIUM (test code=CA) mg/dL 8.5-10.1 [id number] 15:55:00* Test Item Value Reference Range Comments MAGNESIUM (test code=MAG) mg/dL 1.8-2.4 HCG SERUM [id number] 15:55:00* Test Item Value Reference Range Comments HCG SERUM QUAL (test code=HCGQL) NEGATIVE [id number] 15:55:00* Test Item Value Reference Range Comments TROPONIN-I (test code=TROPI) ng/mL 0-0.045 - XR CHEST 1 [id number] 14:56:00 FAX: Aryln Merida MD [phone] [place]: [facility]: [facility] FAX: Manasa Rodriguez [phone] Name: BARRIE TILLMAN [facility] : 1970 Age/S: 48/F [address] [facility] Unit #: [id number] Loc: [place] [address] Phys: Manasa Smomers MD Acct: [id number] Dis Date: Status: [facility] ER PHONE #: [phone] Exam Date: 04/25/2019 1416 FAX #: [phone] Reason: CHEST PAIN EXAMS: CPT CODE: [id number] XR CHEST 1 V [id number] REASON FOR EXAM: CHEST PAIN EXAM ORDER DATE: 04/25/2019 2:07 PM Ordering Estella: Manasa Sommers MD PROCEDURE: - XR CHEST 1 V COMPARISON: FINDINGS: Portable AP frontal view of the chest obtained at 2:16 PM shows clear lungs without evidence of consolidation. There is no evidence of effusion. The heart size is within normal limits. Pulmonary vasculatures are unremarkable. IMPRESSION: No active disease. at 7966 Reported and signed by: Vernon Espinosa M.D. CC: Arlyn Black MD; Manasa Sommers MD Technologist: Mansi Macias RT(R) [facility] Date/Time/By: 04/25/2019 (5542) : By: FeliciaL Orig Print D/T: S: 04/25/2019 (8080) PAGE 1 Signed Report - XR CHEST 1 [id number] 14:56:00 FAX: Arlyn Merida MD [phone] [place]: St: REG FAX: Manasa Rodriguez [phone] Name: BARRIE VERGARA [facility] : 1970 Age/S: 48/F [address] [facility] Unit #: [id number] Loc: [place] [address] Phys: Manasa Sommers MD Acct: [id number] Dis Date: Status: REG ER PHONE #: [phone] Exam Date: 04/25/2019 1416 FAX #: [phone] Reason: CHEST PAIN EXAMS: CPT CODE: [id number] XR CHEST 1 V 31326 REASON FOR EXAM: CHEST PAIN EXAM ORDER DATE: 04/25/2019 2:07 PM Ordering M.Apollo: Manasa Sommers MD PROCEDURE: - XR CHEST 1 V COMPARISON: FINDINGS: Portable AP frontal view of the chest obtained at 2:16 PM shows clear lungs without evidence of consolidation. There is no evidence of effusion. The heart size is within normal limits. Pulmonary vasculatures are unrema rkable. IMPRESSION: No active disease. Electronical ly Signed by Estella Espinosa on 04/25/2019 at 3987 Reported and signed by: Vernon Espinosa M.D. CC: Arlyn Black MD; Manasa Chou MD Technologist: Mansi Macias RT(R) Trnscrd Date/Time/By: 04/25/2019 (1773) : By: FeliciaL Orig Print D/T: S: 04/25/2019 (0574) PAGE 1 Signed Report CHEST 2 [id number] 14:26:00 [place] [address] Patient Name: BARRIE VERGARA MR #: [id number] : 1970 Age/Sex: 48/F Req #: [id number] Adm Physician: Ordered by: JASPER HEDRICK NP Report #: [id number] Location: ER Room/Bed: Procedure: [id number] DX/CHEST 2 VIEWS Exam Date: 02/28/19 Exam Time: 1340 REPORT STATUS: Signed EXAM: CHEST 2 VIEWS, PA and lateral DATE: 02/28/2019 Time stamp on exam: 1:35 PM INDICATION: Chest pain, hypotensive COMPARISON: None FINDINGS: LINES/TU BES: None LUNGS: No consolidations or edema. PLEURA: No effusions or pneumothorax. HEART AND MEDIASTINUM: Normal size and contour. BONES AN D SOFT TISSUES: No acute findings. IMPRESSION: No acute thoracic abnorma lity. Signed by: Dr. Stephan Aguilar DO on 02/28/2019 2:27 PM Dictated By: STEPHAN AGUILAR DO 26 Transcribed By: MAE on 02/28/191426 COPY TO: JASPER HEDRICK MARKETING OFFICER CHEST SINGLE (PORTABLE)2018-10-08 16:02:00 [place] [address] Patient Name: BARRIE TILLMAN MR #: [id number] : 1970 Age/Sex: 48/F Req #: [id number] Adm Physician: Ordered by: SANDRA NIETO MD Report #: [id number] Location: ER Room/Bed: Procedure: [id number] DX/CHEST SINGLE (PORTABLE) Exam Date: 10/08/18 Exam Time: 1541 REPORT STATUS: Signed EXAMINATION: CHEST SINGLE (PORTABLE) INDICATION: Chest pain COM PARISON: None FINDINGS: TUBES and LINES: None. LUNGS: Lungs are well inflated. Lungs are clear. There is no evidence of pneumonia or pu lmonary edema. PLEURA: No pleural effusion or pneumothorax. HEART AND M EDIASTINUM: The cardiomediastinal silhouette is unremarkable. BONES AN D SOFT TISSUES: No acute osseous lesion. Soft tissues are unremarkable. UPPER ABDOMEN: No free air under the diaphragm. IMPRESSION: No acute radiographic abnormality. Signed by: Dr. Mili Becker MD on 10/08/2018 4:03 PM Dictated By: MILI BECKER MD 1600 Transcribed By: MAE on 10/08/18 1603 COPY TO: SANDRA LEWIS MD CT BRAIN [id number] 18:21:00 [place] [address] Patient Name: BARRIE TILLMAN MR #: [id number] : 1970 Age/Sex: 47/F Req #: [id number] Adm Physician: Ordered by: ANDI VARELA MD Report #: [id number] Location: ER Room/Bed: Procedure: [id number] CT/CT BRAIN WO Exam Donato e: Exam Time: REPORT STATUS: Signed Exam: Head CT without contrast History: Weakness, dizziness Comparison studies: None Technique: Axial images were obtained from the skull base to the jonathan nikhil. Coronal and sagittal images reconstructed from the axial data. Dose mo dulation, iterative reconstruction, and/or weight based adjustment of the mA/k V was utilized to reduce the radiation dose to as low as reasonably achievable . Radiation dose: Total DLP: 921 mGy*cm. Estimated effective dose: DLP x 0.015 Intravenous contrast: None Findings: Scalp: No abnormal ities. Bones: No fractures, blastic or lytic lesions. Brain sulci: Approp riate for age. Ventricles: Normal in size and configuration. No hydrocephalus. Extra-axial spaces: No masses, no fluid collection. Parenchyma: No a bnormal densities. No masses, hemorrhage, acute or chronic vascular insults. Sellar/suprasellar region: No abnormalities. Craniocervical junction: Pat ent foramen magnum. No Chiari one malformation. Incidental findings: Sub tle vascular calcifications in the carotid siphons and at the dural insertions of the vertebral arteries. IMPRESSION: No acute abnormalities. Signed by: Dr. Cassandra Mcghee M.D. on 08/02/2018 6:25 PM Dictated By: YOGESH MCGHEE MD 24 T ranscribed By: MAE on 08/02/181824 COPY TO: ANDI VARELA MD CT ABDOMEN/PELVIS [id number] 10:16:00 [place] [address] Patient Name: BARRIE TILLMAN MR #: [id number] : 1970 Age/Sex: 47/F Req #: [id number] [facility] Physician: Ordered by: ANDI VARELA MD Report #: [id number] Location: ER Room/Bed: Procedure: CT/CT ABDOMEN/PELVIS WO Exam Date: 07/25/18 Exam Time: 939 REPORT STA TUS: Signed PROCEDURE: CT ABDOMEN AND PELVIS WITHOUT CONTRAST TECHNIQUE : The abdomen and pelvis were scanned utilizing a multidetector helical sc marilin from the diaphragm to the lesser trochanter after the oral administrati on of water. No intravenous contrast was administered per renal stone protoco l. Coronal and sagittal multiplanar reformations were obtained. COMPARI SON: None. INDICATIONS: LEFT SIDE FLANK PAIN FINDINGS: ABS ENCE OF INTRAVENOUS CONTRAST DECREASES SENSITIVITY FOR DETECTION OF FOCAL LES IONS AND VASCULAR PATHOLOGY. LOWER THORAX: Normal. HEPATOBILIARY: A 1 cm hypoattenuating lesion in hepatic segment 8, average internal attenuatio n less than 10 Hounsfield units, likely representing a simple cyst. Similar h ypoattenuating lesion is seen in the anterior aspect of segment 3, though is too small to further characterize. Additional subcentimeter hypoattenuating l esion in segment IVb adjacent to the falciform ligament, also too small to further characterize. No radiopaque gallstones. SPLEEN: No splenomegaly. P ANCREAS: No focal masses or ductal dilatation. ADRENALS: No adrenal nodule s. KIDNEYS/URETERS: Punctate nonobstructing left lower pole renal calculus. Mild left hydronephrosis secondary to a 4-5 mm ureteropelvic junction calcul us (series 3 image 66). Mild left perinephric fat stranding. No right renal, ureteral, or bladder calculi. The bladder is nearly completely collapsed and suboptimally evaluated. PELVIC ORGANS/BLADDER: Urinary bladder as above. The u terus is neutral in position. No adnexal mass.. PERITONEUM / RETROPERIT ONEUM: No ascites. No pneumoperitoneum. LYMPH NODES: No pelvic sidewall, retro peritoneal, or mesenteric lymphadenopathy. VESSELS: Limited evaluation with out intravenous contrast. The abdominal aorta is non-aneurysmal. GI TRA CT: The large bowel shows no evidence of distention or wall thickening of the descending and sigmoid colon are collapsed and poorly evaluated. The appendix is normal. No small bowel dilatation to suggest obstruction. BONES AND SOFT TISSUES: Postsurgical changes of the low anterior abdominal wall. Small fat containing umbilical hernia. No osseous destructive lesions. IMPR ESSION: 4-5 mm left ureterovesical junction calculus results in mild hy dronephrosis and perinephric inflammation. Additional punctate nonobstructing left lower pole renal calculus. Dictated by: Cassandra Stuart M.D. on 018 at 10:16 Electronically approved by: Cassandra Stuart M.D. on 07/25/2018 a t 10:16 Dictated By: CASSANDRA STUART MD [id number] Transcribed By: AC on 07/25/18 1016 COPY TO: ANDI VARELA MD CHEST 2 [id number] 23:19:00 [place] [id number] Patient Name: BARRIE TILMLAN MR #: [id number] : 1970 Age/Sex: 47/F Req #: [id number] Adm Physician: Ordered by: YADIRA KHANNA MD Report #: [id number] Location: ER Room/Bed: Procedure: [id number] DX/CHEST 2 VIEWS E xam Date: 07/02/18 Exam Time: 2240 REPORT STATU S: Signed EXAMINATION: CHEST 2 VIEWS INDICATION: Chest pa in. COMPARISON: None FINDINGS: TUBES and LINES: None. L UNGS: Lungs are well inflated. Lungs are clear. There is no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
[2019-08-23] MEDS ORDERED: ONDANSETRON HCL INJ 2MG/ML 2ML 2 MG/ML VIAL ONE (11:38)
[2019-08-23] MEDS ORDERED: SODIUM CHLORIDE 0.9% 1000ML 1,000 ML ONE (11:38)
[2019-08-23 12:15] VITALS: BP 137/82
[2019-08-23] MEDS ORDERED: ONDANSETRON HCL INJ 2MG/ML 2ML 2 MG/ML VIAL IV NR (12:15)
[2019-08-23] MEDS ORDERED: SODIUM CHLORIDE 0.9% 1000ML 1,000 ML IV SCH (12:15)
== END 2019-08-23 12:21 | disposition home or self-care (01) ==
LOC: FSED 10:39
DX: R10.13 Epigastric pain (principal); R11.0 Nausea; R19.7 Diarrhea, unspecified; E86.0 Dehydration; D64.9 Anemia, unspecified; K21.9 Gastro-esophageal reflux disease without esophagitis; F41.9 Anxiety disorder, unspecified
CPT/HCPCS: 80053; 81003; 84484; 85025; 99283; J2405; J7030

== ENCOUNTER 2019-09-18 11:32 | Emergency (ER) | payer OTHER ==
[~2019-09-18] VITALS: Ht 149.9 cm; Wt 37.6 kg
[2019-09-18 12:15] LABS: BASOPHILS % 0.2 % (0.0-1.0); EOSINOPHILS # (AUTO) 0.2 (0.0-0.4); EOSINOPHILS % 3.8 % (0.0-6.0); HEMATOCRIT 37.5 % (34.2-44.1); HEMOGLOBIN 12.1 g/dL (12.0-16.0); LYMPHOCYTES # (AUTO) 1.2 (1.0-3.2); LYMPHOCYTES % 19.8 % (18.0-39.1); MEAN CORPUSCULAR HEMOGLOBIN 29.3 pg (28-32); MEAN CORPUSCULAR HGB CONC 32.3 g/dL (31-35); MEAN CORPUSCULAR VOLUME 90.8 fL (81-99); MONOCYTES # (AUTO) 0.4 (0.2-0.8); MONOCYTES % 7.1 % (4.4-11.3); NEUTROPHILS # (AUTO) 4.2 (2.1-6.9); NEUTROPHILS % 68.8 % (38.7-80.0); PLATELET COUNT 248 x10e3/uL (140-360); RED BLOOD COUNT 4.13 x10e6/uL (3.6-5.1); RED CELL DISTRIBUTION WIDTH 14.4 % (11.7-14.4)
[2019-09-18 12:17] LABS: BILIRUBIN,URINE NEGATIVE (NEGATIVE); CLARITY,URINE CLOUDY (CLEAR); COLOR,URINE YELLOW (YELLOW); KETONES,URINE NEGATIVE (NEGATIVE); LEUKOCYTE ESTERASE ,URINE NEGATIVE (NEGATIVE); NITRITE,URINE NEGATIVE (NEGATIVE); PROTEIN,URINE DIPSTICK NEGATIVE (NEGATIVE); URINE UROBILINOGEN 0.2 mg/dL (0.2 - 1)
[2019-09-18 12:20] LABS: INR 0.93
[2019-09-18 12:21] LABS: PARTIAL THROMBOPLASTIN TIME 34.9 seconds (23.8-35.5)
[2019-09-18 12:27] LABS: ALANINE AMINOTRANSFERASE 25 IU/L (0-55); ALBUMIN 3.7 g/dL (3.5-5.0); ALBUMIN/GLOBULIN RATIO 1.1 (0.8-2.0); ALKALINE PHOSPHATASE 59 IU/L (40-150); ANION GAP 12.2 mmol/L (8-16); BLOOD UREA NITROGEN 12 mg/dL (7-26); BUN/CREATININE RATIO 19 (6-25); CALCIUM 9.2 mg/dL (8.4-10.2); CARBON DIOXIDE 26 mmol/L (22-29); CHLORIDE 104 mmol/L (98-107); CREATINE KINASE 35 IU/L (29-168); CREATININE, SERUM 0.64 mg/dL (0.57-1.11); EST GLOMERULAR FILTRATION RATE > 60 ML/MIN (60-); GLUCOSE 106 mg/dL (74-118); POTASSIUM 3.2 mmol/L (3.5-5.1); SODIUM 139 mmol/L (136-145)
[2019-09-18 12:31] LABS: PREGNANCY TEST, URINE NEGATIVE (NEGATIVE)
[2019-09-18 12:36] LABS: AMORPHOUS SEDIMENT,URINE MODERATE (FEW); BACTERIA,URINE MANY /HPF; EPITHELIAL CELLS,URINE MANY /LPF; RBC,URINE >50 /HPF (0-5)
--- NOTE | 2019-09-18 12:40 | Diagnostic Imaging Report ---
EXAMINATION: CHEST SINGLE (PORTABLE) INDICATION: Chest pain COMPARISON: Chest radiograph of 08/10/2019 FINDINGS: LINES/TUBES:EKG leads overlie the chest. LUNGS:The lungs are well-inflated. No focal consolidation or pulmonary edema. PLEURA:No pleural effusion or pneumothorax. MEDIASTINUM:The cardiomediastinal silhouette appears normal in size and shape. BONES/SOFT TISSUES:No acute osseous injury. ABDOMEN:No free air under the diaphragm. Status post cholecystectomy. IMPRESSION: No focal pneumonia or pulmonary edema. Signed by: Marky Godinez MD on 09/18/2019 12:37 PM
[2019-09-18] MEDS ORDERED: POTASSIUM CHLORIDE 20 MEQ TAB CR PO STA (12:53)
[2019-09-18] MEDS ORDERED: KETOROLAC TROMETHAMINE 30 MG/ML VIAL IV STA (12:57)
[2019-09-18] MEDS ORDERED: ONDANSETRON HCL INJ 2MG/ML 2ML 2 MG/ML VIAL IV STA (13:19)
[2019-09-18] MEDS ORDERED: SODIUM CHLORIDE 0.9% 1000ML 1,000 ML IV SCH (13:30)
[2019-09-18 14:21] VITALS: BP 117/84
== END 2019-09-18 14:29 | disposition home or self-care (01) ==
LOC: ER 11:32
DX: R07.89 Other chest pain (principal); E87.6 Hypokalemia; R11.2 Nausea with vomiting, unspecified; K52.9 Noninfective gastroenteritis and colitis, unspecified; E78.5 Hyperlipidemia, unspecified; K21.9 Gastro-esophageal reflux disease without esophagitis; F41.9 Anxiety disorder, unspecified; D64.9 Anemia, unspecified
CPT/HCPCS: 36415; 71045; 80053; 81001; 81025; 82550; 82553; 83880; 84484; 85025; 85610; 85730; 93005; 99284; J1885; J2405; J7030

== ENCOUNTER 2021-12-21 00:33 | Emergency (ER) | payer OTHER ==
[~2021-12-21] VITALS: Ht 149.9 cm; Wt 43.5 kg
[~2021-12-21 00:33] MED LIST changes: +PROAIR HFA INH8.5 GM INH
[2021-12-21] MEDS ORDERED: KETOROLAC TROMETHAMINE 30 MG/ML VIAL IV STA (00:38)
[2021-12-21 00:52] LABS: BASOPHILS % 0.2 % (0.0-1.0); EOSINOPHILS # (AUTO) 0.1 (0.0-0.4); EOSINOPHILS % 1.5 % (0.0-6.0); HEMATOCRIT 36.4 % (34.2-44.1); HEMOGLOBIN 11.4 g/dL (12.0-16.0); LYMPHOCYTES % 42.1 % (18.0-39.1); MEAN CORPUSCULAR HEMOGLOBIN 26.8 pg (28-32); MEAN CORPUSCULAR HGB CONC 31.3 g/dL (31-35); MEAN CORPUSCULAR VOLUME 85.6 fL (81-99); MONOCYTES # (AUTO) 0.6 (0.2-0.8); MONOCYTES % 13.6 % (4.4-11.3); NEUTROPHILS % 42.4 % (38.7-80.0); PLATELET COUNT 235 x10e3/uL (140-360); RED BLOOD COUNT 4.25 x10e6/uL (3.6-5.1); RED CELL DISTRIBUTION WIDTH 15.3 % (11.7-14.4)
[2021-12-21 01:04] VITALS: BP 129/85
[2021-12-21 01:12] LABS: BLOOD UREA NITROGEN 20 mg/dL (7-26); BUN/CREATININE RATIO 27 (6-25); CALCIUM 9.3 mg/dL (8.4-10.2); CREATINE KINASE 90 IU/L (29-168); CREATININE, SERUM 0.74 mg/dL (0.57-1.11); EST GLOMERULAR FILTRATION RATE 83 ML/MIN (60-); GLUCOSE 110 mg/dL (74-118)
[2021-12-21 01:26] LABS: ANION GAP 13.7 mmol/L (8-16); CARBON DIOXIDE 23 mmol/L (22-29); CHLORIDE 108 mmol/L (98-107); POTASSIUM 3.7 mmol/L (3.5-5.1); SODIUM 141 mmol/L (136-145)
== END 2021-12-21 01:59 | disposition home or self-care (01) ==
LOC: ER 00:37 → MERGE 00:37 → ER 01:59
DX: R07.89 Other chest pain (principal); R05.9 Cough, unspecified; E78.5 Hyperlipidemia, unspecified; K21.9 Gastro-esophageal reflux disease without esophagitis; F41.9 Anxiety disorder, unspecified; R94.31 Abnormal electrocardiogram [ECG] [EKG]; Z20.822 Contact with and (suspected) exposure to COVID-19; Z87.442 Personal history of urinary calculi
CPT/HCPCS: 36415; 71045; 80048; 82550; 82553; 84484; 85025; 93005; 99283; J1885; U0002

== ENCOUNTER 2022-04-13 12:46 | Emergency (ER) | payer OTHER ==
[~2022-04-13] VITALS: Ht 149.9 cm; Wt 56.7 kg
[2022-04-13] MEDS ORDERED: LORAZEPAM 1 MG TAB PO ONE (13:00)
[2022-04-13] MEDS ORDERED: SODIUM CHLORIDE FLUSH 10 ML SYR IV PRN (13:00)
[2022-04-13 13:35] LABS: BASOPHILS % 0.4 % (0.0-1.0); EOSINOPHILS # (AUTO) 0.1 (0.0-0.4); EOSINOPHILS % 1.8 % (0.0-6.0); HEMATOCRIT 35.7 % (34.2-44.1); HEMOGLOBIN 11.3 g/dL (12.0-16.0); LYMPHOCYTES # (AUTO) 1.4 (1.0-3.2); LYMPHOCYTES % 27.3 % (18.0-39.1); MEAN CORPUSCULAR HEMOGLOBIN 27.2 pg (28-32); MEAN CORPUSCULAR HGB CONC 31.7 g/dL (31-35); MONOCYTES # (AUTO) 0.5 (0.2-0.8); MONOCYTES % 10.6 % (4.4-11.3); NEUTROPHILS % 59.7 % (38.7-80.0); PLATELET COUNT 254 x10e3/uL (140-360); RED BLOOD COUNT 4.15 x10e6/uL (3.6-5.1); RED CELL DISTRIBUTION WIDTH 14.7 % (11.7-14.4)
[2022-04-13 13:55] LABS: ALANINE AMINOTRANSFERASE 21 IU/L (0-55); ALBUMIN 3.4 g/dL (3.5-5.0); ALBUMIN/GLOBULIN RATIO 0.9 (0.8-2.0); ALKALINE PHOSPHATASE 57 IU/L (40-150); ANION GAP 10.7 mmol/L (8-16); BLOOD UREA NITROGEN 15 mg/dL (7-26); BUN/CREATININE RATIO 24 (6-25); CALCIUM 8.1 mg/dL (8.4-10.2); CARBON DIOXIDE 25 mmol/L (22-29); CHLORIDE 108 mmol/L (98-107); CREATININE, SERUM 0.62 mg/dL (0.57-1.11); EST GLOMERULAR FILTRATION RATE 102 ML/MIN (60-); GLUCOSE 100 mg/dL (74-118); POTASSIUM 3.7 mmol/L (3.5-5.1); SODIUM 140 mmol/L (136-145)
[2022-04-13] MEDS ORDERED: ASPIRIN 325 MG TAB PO ONE (14:30)
[2022-04-13] MEDS ORDERED: MAGNESIUM/ALUMINUM/SIMETHICONE 30 ML UDC PO ONE (15:45)
[2022-04-13] MEDS ORDERED: MAALOX/LIDOCAINE/BENADRYL/NYST 30 ML BTL PO ONE (15:45)
[2022-04-13] MEDS ORDERED: LIDOCAINE VISC 2% SOLN 15 ML UDC PO ONE (15:45)
== END 2022-04-13 16:17 | disposition home or self-care (01) ==
LOC: ER 13:00
DX: R07.89 Other chest pain (principal); K21.9 Gastro-esophageal reflux disease without esophagitis; R10.13 Epigastric pain; E78.5 Hyperlipidemia, unspecified; D64.9 Anemia, unspecified; F41.9 Anxiety disorder, unspecified; Z20.822 Contact with and (suspected) exposure to COVID-19
CPT/HCPCS: 36415; 71045; 80053; 84484; 85025; 93005; 99284; U0002

== ENCOUNTER 2022-08-06 01:57 | Emergency (ER) | payer OTHER ==
[~2022-08-06] VITALS: Ht 149.9 cm; Wt 56.7 kg
[2022-08-06 02:24] LABS: BASOPHILS % 0.7 % (0.0-1.0); EOSINOPHILS # (AUTO) 0.1 (0.0-0.4); EOSINOPHILS % 2.5 % (0.0-6.0); HEMATOCRIT 37.7 % (34.2-44.1); HEMOGLOBIN 12.2 g/dL (12.0-16.0); LYMPHOCYTES # (AUTO) 1.9 (1.0-3.2); LYMPHOCYTES % 43.7 % (18.0-39.1); MEAN CORPUSCULAR HEMOGLOBIN 28.1 pg (28-32); MEAN CORPUSCULAR HGB CONC 32.4 g/dL (31-35); MEAN CORPUSCULAR VOLUME 86.9 fL (81-99); MONOCYTES # (AUTO) 0.5 (0.2-0.8); MONOCYTES % 10.9 % (4.4-11.3); NEUTROPHILS # (AUTO) 1.9 (2.1-6.9); NEUTROPHILS % 42.2 % (38.7-80.0); PLATELET COUNT 235 x10e3/uL (140-360); RED BLOOD COUNT 4.34 x10e6/uL (3.6-5.1); RED CELL DISTRIBUTION WIDTH 15.1 % (11.7-14.4)
[2022-08-06 02:26] LABS: AMPHETAMINES SCREEN,URINE NEGATIVE (NEGATIVE); BENZODIAZEPINES SCREEN,URINE POSITIVE (NEGATIVE); PHENCYCLIDINE SCREEN,URINE NEGATIVE (NEGATIVE)
[2022-08-06 02:38] LABS: ALANINE AMINOTRANSFERASE 13 IU/L (0-55); ALBUMIN 3.8 g/dL (3.5-5.0); ALBUMIN/GLOBULIN RATIO 1.2 (0.8-2.0); ALKALINE PHOSPHATASE 49 IU/L (40-150); ANION GAP 19.6 mmol/L (8-16); BLOOD UREA NITROGEN 16 mg/dL (7-26); BUN/CREATININE RATIO 26 (6-25); CARBON DIOXIDE 20 mmol/L (22-29); CHLORIDE 107 mmol/L (98-107); CREATININE, SERUM 0.61 mg/dL (0.57-1.11); GLUCOSE 98 mg/dL (74-118); POTASSIUM 3.6 mmol/L (3.5-5.1); SODIUM 143 mmol/L (136-145)
[2022-08-06 02:55] LABS: CREATINE KINASE 68 IU/L (29-168)
[2022-08-06] MEDS ORDERED: ONDANSETRON HCL INJ 2MG/ML 2ML 2 MG/ML VIAL IV STA (02:58)
[2022-08-06] MEDS ORDERED: Morphine 4mg INJECTION 4 MG/ML INJ IV ONE (03:00)
[2022-08-06 03:15] VITALS: BP 131/93
[2022-08-06] MEDS ORDERED: ONDANSETRON HCL INJ 2MG/ML 2ML 2 MG/ML VIAL ONE (03:15)
== END 2022-08-06 03:16 | disposition home or self-care (01) ==
LOC: ER 02:02
DX: R10.13 Epigastric pain (principal); R07.89 Other chest pain; E78.5 Hyperlipidemia, unspecified; D64.9 Anemia, unspecified; F41.9 Anxiety disorder, unspecified; K21.9 Gastro-esophageal reflux disease without esophagitis; R94.31 Abnormal electrocardiogram [ECG] [EKG]
CPT/HCPCS: 36415; 71045; 80053; 80307; 82550; 82553; 83690; 83880; 84484; 85025; 85379; 93005; 99284; C9113; J2270; J2405

== ENCOUNTER 2023-05-09 13:37 | Emergency (ER) | payer OTHER ==
[~2023-05-09] VITALS: Ht 149.9 cm; Wt 56.7 kg
[2023-05-09] MEDS ORDERED: KETOROLAC TROMETHAMINE 30 MG/ML VIAL IV STA (14:11)
[2023-05-09] MEDS ORDERED: ONDANSETRON HCL INJ 2MG/ML 2ML 2 MG/ML VIAL IV STA (14:11)
[2023-05-09] MEDS ORDERED: SODIUM CHLORIDE 0.9% 1000ML 1,000 ML IV SCH (14:15)
[2023-05-09 14:31] LABS: BASOPHILS % 0.2 % (0.0-1.0); EOSINOPHILS % 0.1 % (0.0-6.0); HEMATOCRIT 39.4 % (34.2-44.1); LYMPHOCYTES # (AUTO) 0.7 (1.0-3.2); LYMPHOCYTES % 6.2 % (18.0-39.1); MEAN CORPUSCULAR HEMOGLOBIN 29.2 pg (28-32); MEAN CORPUSCULAR VOLUME 88.5 fL (81-99); MONOCYTES # (AUTO) 0.8 (0.2-0.8); MONOCYTES % 7.7 % (4.4-11.3); NEUTROPHILS # (AUTO) 9.3 (2.1-6.9); NEUTROPHILS % 85.5 % (38.7-80.0); PLATELET COUNT 221 x10e3/uL (140-360); RED BLOOD COUNT 4.45 x10e6/uL (3.6-5.1); RED CELL DISTRIBUTION WIDTH 14.1 % (11.7-14.4)
[2023-05-09 14:46] LABS: ALBUMIN/GLOBULIN RATIO 1.3 (0.8-2.0); ANION GAP 13.8 mmol/L (8-16); CALCIUM 8.9 mg/dL (8.4-10.2); CREATININE, SERUM 0.72 mg/dL (0.57-1.11); POTASSIUM 3.8 mmol/L (3.5-5.1)
[2023-05-09 15:10] LABS: CLARITY,URINE CLOUDY (CLEAR); COLOR,URINE YELLOW (YELLOW); KETONES,URINE NEGATIVE (NEGATIVE); LEUKOCYTE ESTERASE ,URINE NEGATIVE (NEGATIVE); NITRITE,URINE NEGATIVE (NEGATIVE); PROTEIN,URINE DIPSTICK 1+ (NEGATIVE); URINE UROBILINOGEN 0.2 mg/dL (0.2 - 1)
[2023-05-09 15:29] LABS: EPITHELIAL CELLS,URINE MODERATE /LPF
[2023-05-09 15:30] LABS: BACTERIA,URINE MODERATE /HPF; RBC,URINE >50 /HPF (0-5)
[2023-05-09] MEDS ORDERED: KETOROLAC TROME10 MG MT (15:35)
[2023-05-09] MEDS ORDERED: ONDANSETRON ODT4 MG PO (15:36)
[2023-05-09 16:41] VITALS: BP 138/87; PULSE 77; RESP 16; TEMP 98.6; O2SAT 100
== END 2023-05-09 16:34 | disposition home or self-care (01) ==
LOC: ER 13:42
DX: R10.32 Left lower quadrant pain (principal); N13.2 Hydronephrosis with renal and ureteral calculous obstruction; D64.9 Anemia, unspecified; E78.5 Hyperlipidemia, unspecified; K21.9 Gastro-esophageal reflux disease without esophagitis; F41.9 Anxiety disorder, unspecified
CPT/HCPCS: 36415; 74176; 80053; 81001; 83690; 84702; 85025; 99284; J1885; J2405; J7030